=== PATIENT | female | born 1945 | race Caucasian/White ===

== ENCOUNTER 2017-01-06 17:27 | Emergency (ER) | payer OTHER ==
[~2017-01-06] VITALS: Ht 174 cm; Wt 113.7 kg
[~2017-01-06 17:27] MED LIST: ALBUAER INH; ALLO1TAB51 PO; ASPCH81X PO; ATEN50TA8 PO; CMD5 PO; DIGO0.122 PO; ENAL20TA PO; FLUT0.0529 NAE; FRRS300 PO; FRS/40 PO; INSDGI SC; INSU70IN2 SC; ISOS60TA25 PO; LEVO-366 PO; LEVO125T4 PO; LIRA18IN INJ; METF850T PO; MULT-188 PO; MULT-845 PO; OMEG10007 PO; PEDICHW44 PO; POTA1080 PO; PRAV40TA2 PO
[2017-01-06 17:30] VITALS: TEMP 36.8; Ht 174 cm; Wt 113.7 kg
[2017-01-06 17:54] VITALS: O2SAT 98
--- NOTE | 2017-01-06 18:22 | EMERGENCY ROOM VISIT NOTE ---
History First contact with patient: 17:54 Chief Complaint: RESPIRATORY PROBLEMS Stated Complaint: CHF BREATHING TROUBLE Nursing Triage Summary: Patient states "I have CHF. I have been feeling poopy. I have trouble breathing. I call it fluffing." Patient c/o of chest pressure yesterday. History of Present Illness The patient is a 71 year old female who presents to the Emergency Room with complaints of trouble breathing Started 4-5 days ago. Feels that her breathing treatment and inhalers not working. ?compliance with low salt diet. Not following any fluid restriction. Coughing up phlegm, particularly after breathing treatment, more so than previous. Symptomatic only with exertion or sitting up Denies new chest pain, but does have worsening neck pain over last week. Some palpitations, some lightheadedness, No pleurisy. No URTI sx Has longstanding orthopnea, but no PND Had sleep study >10 years ago, and said CPAP wasn't necessary. Also refuses to redo sleep study. Takes Lasix 40mg BID. Unsure of whether or not she is taking enalapril. Walks with poor balance, not compliant with cane. 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 No history of clots or DVTS PCP: Dr. Ibrahim Refractory Specialist Dr. All Steward Review of Systems See HPI for pertinent positives and negatives. A total of ten systems were reviewed and were otherwise negative. Past Medical/Surgical History Medical Problems: (1) A-fib (2) Bronchitis (3) CHF (congestive heart failure) (4) Diabetes (5) emphysema (6) Hypertension (7) Pneumonia (8) thyroid problems Surgical Problems: (1) S/P cholecystectomy Family History Diabetes mellitus Heart disease Hypertension Kidney disease Kidney stones Social History Smoking Status: Former Smoker Alcohol Use: none Marital Status: single Housing Status: lives with significant other Occupation Status: retired Current/Historical Medications Scheduled Allopurinol (Zyloprim), 300 MG PO QAM Aspirin (Aspirin 81), 81 MG PO QAM Atenolol (Tenormin), 100 MG PO QAM Atenolol (Tenormin), 50 MG PO HS Digoxin (Digoxin), 0.125 MG PO DAILY AT 1600 Ferrous Sulfate (Ferrous Sulfate), 325 MG PO DAILY Fish Oil ([place]-3), 1,000 MG PO BID Fluticasone Prop/Salmeterol (Advair Diskus 100/50 60 Dose), 1 PUFF INH BID Fluticasone Propionate (Nasal) (Flonase Allergy Relief), 2 SPRAYS MALATHI DAILY Furosemide (Lasix), 40 MG PO BID AT 0600 & 1200 Insulin Glargine (Lantus), 40 UNITS SC AMPM Ipratropium-Albuterol (Duoneb), 1 TREATMENT INH QID Isosorbide Mononitrate Ext Rel (Imdur Ext Rel), 60 MG PO HS Levothyroxine Sodium (Levothyroxine Sodium), 125 MCG PO HS Liraglutide (Victoza), 1.2 UNITS INJ DAILY AT 1600 Lisinopril (Zestril), 20 MG PO QAM Metformin Hcl (Glucophage), 850 MG PO TID Multiple Vitamins W/ Minerals (Ocuvite), 1 TAB PO BID Multiple Vitamins W/ Minerals (Centrum Silver Adult 50+), 1 TAB PO DAILY Pediatric Multiple Vitamins W/ (Flintstones Plus Iron), 1 TAB PO DAILY Potassium Citrate (Potassium Citrate), 20 MEQ PO BID Pravastatin Sodium (Pravastatin Sodium), 40 MG PO HS Warfarin Sod (Coumadin), 7.5 MG PO QDD Scheduled PRN Albuterol Sulfate (Proair Respiclick), 2 PUFFS INH QID PRN for RESCUE KIT Azithromycin (Zithromax), 250 MG PO DIRECTED PRN for RESCUE KIT Prednisone (Prednisone), 5 MG PO DIRECTED PRN for RESCUE KIT Physical Exam Vital Signs Date Time Temp Pulse Resp B/P (MAP) Pulse Ox O2 Delivery O2 Flow Rate FiO2 01/06/17 21:28 89 18 152/73 97 01/06/17 20:21 86 20 171/109 99 Room Air 01/06/17 19:19 89 01/06/17 18:59 82 20 156/89 96 Room Air 01/06/17 17:54 98 Room Air 01/06/17 17:30 36.8 85 18 171/78 96 Room Air Physical Exam GENERAL: Alert, well appearing, well nourished, sitting in bed, no acute distress, non-toxic HEAD: NC/AT. No sinus tenderness. OROPHARYNX: no exudate, no erythema, lips, buccal mucosa, and tongue normal and mucous membranes are tacky NECK: Supple, no nuchal rigidity, no adenopathy, non-tender, no JVD LUNGS: Clear to auscultation. Normal chest wall mechanics, good air entry. No crepitations, crackles, or wheezes HEART: S1 and S2 normal, irregularly irregular but rate controlled, no murmurs CHEST: No reproducible tenderness. ABDOMEN: abdomen soft, non-tender, normo-active bowel sounds, no masses, no rebound or guarding. No caput. BACK: Back is symmetrical on inspection, no deformities, no midline tenderness, no CVA tenderness. SKIN: Warm, pink, dry. No erythema, rashes, or bruising. EXTREMITIES: Grossly normal. No pitting edema. Calves non tender. Strength 5/5 bilaterally. NEURO: Alert, Ox3. No focal deficits. Normal sensorium, cranial nerves II-XII grossly intact, normal speech. PSYCH: Mood and affect appropriate. Medical Decision & Procedures ER Provider Diagnostic Interpretation: CHEST ONE VIEW PORTABLE CLINICAL HISTORY: SOB dyspnea COMPARISON STUDY: 10/12/2015 FINDINGS: Moderate stable cardiomegaly. Mild prominence of the pulmonary vasculature considered chronic. Diaphragms are smooth. Costophrenic angles are sharp. IMPRESSION: Moderate stable cardiomegaly. Otherwise negative study Laboratory Results 01/06/17 18:55 Red Blood Count 4.11, Mean Corpuscular Volume 90.5, Mean Corpuscular Hemoglobin 29.0, Mean Corpuscular Hemoglobin Concent 32.0, Mean Platelet Volume 10.5, Neutrophils (%) (Auto) 75.5, Lymphocytes (%) (Auto) 14.6, Monocytes (%) (Auto) 6.6, Eosinophils (%) (Auto) 2.7, Basophils (%) (Auto) 0.3, Neutrophils # (Auto) 5.86, Lymphocytes # (Auto) 1.13, Monocytes # (Auto) 0.51, Eosinophils # (Auto) 0.21, Basophils # (Auto) 0.02 01/06/17 18:55 Test 01/06/17 18:55 White Blood Count 7.75 K/uL (4.8-10.8) Red Blood Count 4.11 M/uL (4.2-5.4) Hemoglobin 11.9 g/dL (12.0-16.0) Hematocrit 37.2 % (37-47) Mean Corpuscular Volume 90.5 fL (80-100) Mean Corpuscular Hemoglobin 29.0 pg (25-34) Mean Corpuscular Hemoglobin Concent 32.0 g/dl (32-36) Platelet Count 129 K/uL (130-400) Mean Platelet Volume 10.5 fL (7.4-10.4) Neutrophils (%) (Auto) 75.5 % Lymphocytes (%) (Auto) 14.6 % Monocytes (%) (Auto) 6.6 % Eosinophils (%) (Auto) 2.7 % Basophils (%) (Auto) 0.3 % Neutrophils # (Auto) 5.86 K/uL (1.4-6.5) Lymphocytes # (Auto) 1.13 K/uL (1.2-3.4) Monocytes # (Auto) 0.51 K/uL (0.11-0.59) Eosinophils # (Auto) 0.21 K/uL (0-0.5) Basophils # (Auto) 0.02 K/uL (0-0.2) RDW Standard Deviation 56.2 fL (36.4-46.3) RDW Coefficient of Variation 17.1 % (11.5-14.5) Immature Granulocyte % (Auto) 0.3 % Immature Granulocyte # (Auto) 0.02 K/uL (0.00-0.02) Prothrombin Time 21.4 SECONDS (9.0-12.0) Prothromb Time International Ratio 1.9 (0.9-1.1) Anion Gap 7.0 mmol/L (3-11) Est Creatinine Clear Calc Drug Dose 64.4 ml/min Estimated GFR () 59.3 Estimated GFR (Non- 51.2 BUN/Creatinine Ratio 29.3 (10-20) Calcium Level 9.6 mg/dl (8.5-10.1) Troponin I < 0.015 ng/ml (0-0.045) Medications Administered Medications (Trade) Dose Ordered Sig/Ting Route Start Time Stop Time Status Last Admin Dose Admin Sodium Chloride 500 ml @ 500 mls/hr Q1H IV 01/06/17 20:00 01/06/17 20:59 DC 01/06/17 20:21 500 MLS/HR Albuterol/ Ipratropium (Duoneb) 3 ml Q4R STAT INH 01/06/17 20:01 01/06/17 20:06 DC 01/06/17 20:20 3 ML ECG Indication: SOB/dyspnea Rate (beats per minute): 94 Rhythm: atrial fibrillation Findings: PVC, Q waves (Anterior) Comparison ECG Date: When compared with ECG of 12-OCT-2015 09:42, nonspecific T wave abnormality no longer evident in Lateral leads Medical Decision Prior records/ancillary studies reviewed. Triage Nursing notes reviewed. Additional history obtained from the patient and . The patient's history was concerning for respiratory difficulties. Differential diagnosis: Etiologies such as infections, reactive airway disease, pneumonia, pneumothorax , COPD, CHF, cardiac ischemia, pulmonary embolism, musculoskeletal, gastrointestinal, as well as others were entertained. Physical examination: As above. ER treatment provided: IV NSS bolus + Duonebs On reassessment the patient felt better. Diagnostic interpretation by me: The electrocardiogram was negative for acute ischemic or pathologic change. The labs revealed borderline anemia, negative trop, evidence of dehydration Imaging studies: Chest x-ray as above. By the evaluation outlined above emergent etiologies such as CHF, cardiac ischemia, pulmonary embolism, reactive airway disease, pneumonia, pneumothorax, musculoskeletal, serious bacterial infections, as well as others were deemed relatively unlikely. The patient and informed about the findings as listed above. All questions were answered and they were pleased with the treatment. Return instructions were outlined and the patient was discharged in stable condition. Outpatient prescription management: Nil Referral: The patient was referred back to their primary care physician for follow-up in 2 to 3 days for a recheck of the current condition. Impression Primary Impression: SOB (shortness of breath) Departure Information Dispostion Home / Self-Care Condition GOOD Referrals Consuelo Arreguin D.O. (PCP) Patient Instructions My [facility] Resident Tracking Resident Involvement: Resident Care Provided Care Provided: Adult ED
--- NOTE | 2017-01-06 19:01 | DIAGNOSTIC IMAGING REPORT ---
CHEST ONE VIEW PORTABLE CLINICAL HISTORY: SOB dyspnea COMPARISON STUDY: 10/12/2015 FINDINGS: Moderate stable cardiomegaly. Mild prominence of the pulmonary vasculature considered chronic. Diaphragms are smooth. Costophrenic angles are sharp. IMPRESSION: Moderate stable cardiomegaly. Otherwise negative study The above report was generated using voice recognition software. It may contain grammatical, syntax or spelling errors. Electronically signed by: Bartolome Villanueva M.D. 01/06/2017 7:00 PM Dictated Date/Time: 01/06/2017 7:00 PM
[2017-01-06 19:08] LABS: BASO % 0.3 %; BASO ABS # 0.02 K/uL (0-0.2); COMPLETE YES; EOS % 2.7 %; HEMATOCRIT 37.2 % (37-47); IG% 0.3 %; LYMPH % 14.6 %; LYMPH ABS # 1.13 K/uL (1.2-3.4); MEAN CELL VOLUME 90.5 fL (80-100); MEAN PLATELET VOLUME 10.5 fL (7.4-10.4); MONO % 6.6 %; NEUT % 75.5 %; PLATELET COUNT 129 K/uL (130-400); RED BLOOD COUNT 4.11 M/uL (4.2-5.4); WHITE BLOOD COUNT 7.75 K/uL (4.8-10.8)
[2017-01-06 19:18] LABS: INR 1.9 (0.9-1.1); PROTHROMBIN TIME (PATIENT) 21.4 SECONDS (9.0-12.0)
[2017-01-06] MEDS ORDERED: ALBU18002 INH (19:18)
[2017-01-06] MEDS ORDERED: FLUT0.15 NAE (19:18)
[2017-01-06] MEDS ORDERED: ASPI-435 PO (19:18)
[2017-01-06] MEDS ORDERED: LISI-725 PO (19:18)
[2017-01-06] MEDS ORDERED: LNX125 PO (19:18)
[2017-01-06] MEDS ORDERED: ADVIN10/60 INH (19:18)
[2017-01-06] MEDS ORDERED: URC10 PO (19:18)
[2017-01-06] MEDS ORDERED: PRAV40TA2 PO (19:18)
[2017-01-06] MEDS ORDERED: PRED-301 PO (19:18)
[2017-01-06] MEDS ORDERED: AZIT250T PO (19:18)
[2017-01-06] MEDS ORDERED: INSDGI SC (19:18)
[2017-01-06] MEDS ORDERED: IPRASOL4 INH (19:18)
[2017-01-06] MEDS ORDERED: ALLO300T2 PO (19:18)
[2017-01-06 19:30] LABS: BLOOD UREA NITROGEN 32 mg/dl (7-18); BUN/CREATININE RATIO 29.3 (10-20); CALCIUM 9.6 mg/dl (8.5-10.1); CARBON DIOXIDE 26 mmol/L (21-32); CHLORIDE 107 mmol/L (98-107); GLUCOSE 185 mg/dl (70-99); POTASSIUM 4.8 mmol/L (3.5-5.1); SODIUM 140 mmol/L (136-145)
[2017-01-06] MEDS ORDERED: SODIUM CHLORIDE 0.9% 500ML 500 ML IV SCH (20:00)
[2017-01-06] MEDS ORDERED: ALBUT/IPRATROP 3MG/0.5MG NEB 3 ML VIAL INH STA (20:01)
--- NOTE | 2017-01-06 21:14 | EMERGENCY ROOM VISIT NOTE ---
ED Visit Note First contact with patient: 17:54 Resident Physician Supervision Note: I interviewed and examined the patient. Discussed with Dr. Jackson and agree with findings and plan as documented in the note. Documented By: Santos Kingston Problem List Medical Problems: (1) A-fib Status: Chronic (2) Bronchitis Status: Resolved (3) CHF (congestive heart failure) Status: Chronic (4) Diabetes Status: Chronic (5) emphysema Status: Resolved (6) Hypertension Status: Chronic (7) Pneumonia Status: Resolved (8) thyroid problems Status: Chronic Surgical Problems: (1) S/P cholecystectomy Status: Resolved Current/Historical Medications Scheduled Allopurinol (Zyloprim), 300 MG PO QAM Aspirin (Aspirin 81), 81 MG PO QAM Atenolol (Tenormin), 100 MG PO QAM Atenolol (Tenormin), 50 MG PO HS Digoxin (Digoxin), 0.125 MG PO DAILY AT 1600 Ferrous Sulfate (Ferrous Sulfate), 325 MG PO DAILY Fish Oil ([place]-3), 1,000 MG PO BID Fluticasone Prop/Salmeterol (Advair Diskus 100/50 60 Dose), 1 PUFF INH BID Fluticasone Propionate (Nasal) (Flonase Allergy Relief), 2 SPRAYS MALATHI DAILY Furosemide (Lasix), 40 MG PO BID AT 0600 & 1200 Insulin Glargine (Lantus), 40 UNITS SC AMPM Ipratropium-Albuterol (Duoneb), 1 TREATMENT INH QID Isosorbide Mononitrate Ext Rel (Imdur Ext Rel), 60 MG PO HS Levothyroxine Sodium (Levothyroxine Sodium), 125 MCG PO HS Liraglutide (Victoza), 1.2 UNITS INJ DAILY AT 1600 Lisinopril (Zestril), 20 MG PO QAM Metformin Hcl (Glucophage), 850 MG PO TID Multiple Vitamins W/ Minerals (Ocuvite), 1 TAB PO BID Multiple Vitamins W/ Minerals (Centrum Silver Adult 50+), 1 TAB PO DAILY Pediatric Multiple Vitamins W/ (Flintstones Plus Iron), 1 TAB PO DAILY Potassium Citrate (Potassium Citrate), 20 MEQ PO BID Pravastatin Sodium (Pravastatin Sodium), 40 MG PO HS Warfarin Sod (Coumadin), 7.5 MG PO QDD Scheduled PRN Albuterol Sulfate (Proair Respiclick), 2 PUFFS INH QID PRN for RESCUE KIT Azithromycin (Zithromax), 250 MG PO DIRECTED PRN for RESCUE KIT Prednisone (Prednisone), 5 MG PO DIRECTED PRN for RESCUE KIT Allergies Coded Allergies: Adhesives (Verified Allergy, Mild, REDNESS, 01/06/17) Vital Signs Date Time Temp Pulse Resp B/P (MAP) Pulse Ox O2 Delivery O2 Flow Rate FiO2 01/06/17 20:21 86 20 171/109 99 Room Air 01/06/17 19:19 89 01/06/17 18:59 82 20 156/89 96 Room Air 01/06/17 17:54 98 Room Air 01/06/17 17:30 36.8 85 18 171/78 96 Room Air Laboratory Results 01/06/17 18:55 Red Blood Count 4.11, Mean Corpuscular Volume 90.5, Mean Corpuscular Hemoglobin 29.0, Mean Corpuscular Hemoglobin Concent 32.0, Mean Platelet Volume 10.5, Neutrophils (%) (Auto) 75.5, Lymphocytes (%) (Auto) 14.6, Monocytes (%) (Auto) 6.6, Eosinophils (%) (Auto) 2.7, Basophils (%) (Auto) 0.3, Neutrophils # (Auto) 5.86, Lymphocytes # (Auto) 1.13, Monocytes # (Auto) 0.51, Eosinophils # (Auto) 0.21, Basophils # (Auto) 0.02 01/06/17 18:55 Test 01/06/17 18:55 White Blood Count 7.75 K/uL (4.8-10.8) Red Blood Count 4.11 M/uL (4.2-5.4) Hemoglobin 11.9 g/dL (12.0-16.0) Hematocrit 37.2 % (37-47) Mean Corpuscular Volume 90.5 fL (80-100) Mean Corpuscular Hemoglobin 29.0 pg (25-34) Mean Corpuscular Hemoglobin Concent 32.0 g/dl (32-36) Platelet Count 129 K/uL (130-400) Mean Platelet Volume 10.5 fL (7.4-10.4) Neutrophils (%) (Auto) 75.5 % Lymphocytes (%) (Auto) 14.6 % Monocytes (%) (Auto) 6.6 % Eosinophils (%) (Auto) 2.7 % Basophils (%) (Auto) 0.3 % Neutrophils # (Auto) 5.86 K/uL (1.4-6.5) Lymphocytes # (Auto) 1.13 K/uL (1.2-3.4) Monocytes # (Auto) 0.51 K/uL (0.11-0.59) Eosinophils # (Auto) 0.21 K/uL (0-0.5) Basophils # (Auto) 0.02 K/uL (0-0.2) RDW Standard Deviation 56.2 fL (36.4-46.3) RDW Coefficient of Variation 17.1 % (11.5-14.5) Immature Granulocyte % (Auto) 0.3 % Immature Granulocyte # (Auto) 0.02 K/uL (0.00-0.02) Prothrombin Time 21.4 SECONDS (9.0-12.0) Prothromb Time International Ratio 1.9 (0.9-1.1) Anion Gap 7.0 mmol/L (3-11) Est Creatinine Clear Calc Drug Dose 64.4 ml/min Estimated GFR () 59.3 Estimated GFR (Non- 51.2 BUN/Creatinine Ratio 29.3 (10-20) Calcium Level 9.6 mg/dl (8.5-10.1) Troponin I < 0.015 ng/ml (0-0.045) Medications Administered Medications (Trade) Dose Ordered Sig/Ting Route Start Time Stop Time Status Last Admin Dose Admin Sodium Chloride 500 ml @ 500 mls/hr Q1H IV 01/06/17 20:00 01/06/17 20:59 DC 01/06/17 20:21 500 MLS/HR Albuterol/ Ipratropium (Duoneb) 3 ml Q4R STAT INH 01/06/17 20:01 01/06/17 20:06 DC 01/06/17 20:20 3 ML Departure Information Dispostion Home / Self-Care Condition GOOD Referrals Consuelo Arreguin D.O. (PCP) Patient Instructions My [facility]
[2017-01-06 21:28] VITALS: BP 152/73; PULSE 89; O2SAT 97
== END 2017-01-06 21:28 | disposition home or self-care (01) ==
LOC: C.EDB 17:29
DX: R06.02 Shortness of breath (principal); I48.91 Unspecified atrial fibrillation; I50.9 Heart failure, unspecified; E11.9 Type 2 diabetes mellitus without complications; I10 Essential (primary) hypertension; Z83.3 Family history of diabetes mellitus; Z82.49 Family history of ischemic heart disease and other diseases of the circulatory system; Z87.891 Personal history of nicotine dependence; Z79.82 Long term (current) use of aspirin; Z79.4 Long term (current) use of insulin; Z79.01 Long term (current) use of anticoagulants

== ENCOUNTER 2018-09-08 17:47 | Inpatient (IN) ==
[2018-09-08] MEDS ORDERED: SODIUM CHLORIDE 0.9% 500 ML IV SCH (18:15)
--- NOTE | 2018-09-08 18:35 | XRay Report ---
XR chest 1V portable CLINICAL HISTORY: Pain, radiating to the abdomen. COMPARISON STUDY: May 02, 2018 FINDINGS: The cardiac silhouette is enlarged. There has been interval resolution of the previously id entified pulmonary vascular congestion. There is no focal pulmonary consolidation. There is no free i ntraperitoneal air.[There are no significant pleural effusions. IMPRESSION: 1. Enlarged cardiac silhouette with near complete resolution of the previously described pulmonary va scular congestion. 2. No evidence of focal pulmonary consolidation 3. No evidence of free intraperitoneal air Electronically signed by: Liborio Fernandez M.D. 09/08/2018 6:34 PM
[2018-09-08 18:55] LABS: Basophils # (auto) 0.03 K/uL (0-0.2); Basophils % (auto) 0.2 %; Eosinophils # (auto) 0.18 K/uL (0-0.5); Eosinophils % (auto) 1.4 %; Hematocrit (blood only) 31.4 % (37-47); Hemoglobin 9.9 g/dL (12.0-16.0); Immature Granulocytes # (auto) 0.03 K/uL (0.00-0.02); Immature Granulocytes % (auto) 0.2 %; Lymphocytes # (auto) 1.49 K/uL (1.2-3.4); Lymphocytes % (auto) 11.5 %; Mean Corpuscular Hgb Conc 31.5 g/dL (32-36); Mean Corpuscular Volume 88.2 fL (80-100); Monocytes # (auto) 0.81 K/uL (0.11-0.59); Monocytes % (auto) 6.2 %; Neutrophils # (auto) 10.47 K/uL (1.4-6.5); Neutrophils % (auto) 80.5 %; Platelet Count 278 K/uL (130-400); RDW Coefficient of Variation 18.1 % (11.5-14.5); RDW Standard Deviation 58.3 fL (36.4-46.3); Red Blood Count 3.56 M/uL (4.2-5.4); White Blood Count 13.01 K/uL (4.8-10.8)
--- NOTE | 2018-09-08 18:55 | Emergency Department Note ---
Entered by Immanuel Greenberg acting as a scribe for History of Present Illness General Chief complaint: Constipation Stated complaint: CONSTIPATION, ABDOMINAL PAIN Time Seen by Provider: 09/08/18 18:02 Source: patient Limitations: no limitations History of Present Illness Onset (ago): week(s) (couple of weeks) Location: abdomen Pain Consistency: + intermittent Maximum Pain Intensity: 2 Quality: + aching Associated symptoms: + denies other symptoms (back pain, burning with urination), + loss of appetite and + shortness of breath; no headaches, no n ausea/vomiting and no weakness (in legs) The patient is a 73 year old female who presents to the Emergency Room with complaints of intermittent constipation starting a couple of weeks ago. The patient states her last bowel movement was 5 days ago after she took milk of magnesium. She notes she has been having aching pain at her RUQ. The patient states she has lost over 14 pounds in the past couple weeks. She notes she has been losing her appetite. The patient notes she took a breathing treatment before coming to the ED because she states she had bad breathing because of the pain. The patient notes she had a temperature of 99.1 before coming to the ED. She notes her last bowel movement was dark. The patient states she took insulin this morning. The patient denies vomiting, back pain, burning with urination, headaches, numbness or weakness in her legs, and any recent change in medications. The patient notes she had the flu 4 times this winter. She notes she has CHF and A-Fib. The patient notes she takes Coumadin and her blood sugar has been good. She notes her PCP is Consuelo Arreguin. Home Medications Home Medications Medication Instructions Recorded Confirmed Type albuterol sulfate [ProAir 2 puff INHALATION QID PRN 03/18/18 09/08/18 History RespiClick] allopurinol 300 mg PO DAILY 03/18/18 09/08/18 History atenolol 100 mg PO QAM 03/18/18 09/08/18 History digoxin [Digox] 0.125 mg PO DAILY 03/18/18 09/08/18 History fluticasone propion-salmeterol 1 puff INHALATION Q12H 03/18/18 09/08/18 History [Advair Diskus] fluticasone propionate [Flonase 2 spray INTRANASAL DAILY 03/18/18 09/08/18 History Allergy Relief] furosemide 40 mg PO BID 03/18/18 09/08/18 History insulin glargine [Lantus U-100 40 unit SUBCUT BID 03/18/18 09/08/18 History Insulin] isosorbide mononitrate 60 mg PO QAM 03/18/18 09/08/18 History levothyroxine 125 mcg PO DAILY 03/18/18 09/08/18 History liraglutide [Victoza 2-Trevor] 1.2 mg SUBCUT DAILY 03/18/18 09/08/18 History lisinopril 20 mg PO DAILY 03/18/18 09/08/18 History metformin 850 mg PO TID 03/18/18 09/08/18 History montelukast 10 mg PO PM 03/18/18 09/08/18 History potassium citrate 20 meq PO BID 03/18/18 09/08/18 History pravastatin 40 mg PO HS 03/18/18 09/08/18 History warfarin 7.5 mg PO DAILY 03/18/18 09/08/18 History atenolol 50 mg PO QPM 05/02/18 09/08/18 History insulin lispro protamin-lispro 18 unit SUBCUT QAM 05/02/18 09/08/18 History [Humalog Mix 75-25 KwikPen] ipratropium-albuterol 3 ml INHALATION QID PRN 05/02/18 09/08/18 History azithromycin [Zithromax Z-Trevor] 1 - 2 tabs PO UD 09/08/18 09/08/18 History ferrous sulfate 325 mg PO QPM 09/08/18 09/08/18 History magnesium hydroxide [Milk of 30 ml PO UD PRN 09/08/18 09/08/18 History Magnesia] hngxyjez-lnc-FP-lycopen-lutein 1 tab PO DAILY 09/08/18 09/08/18 History [Centrum Silver] omega 8-xbt-jla-fish oil [[place]-3] 1 cap PO BID 09/08/18 09/08/18 History pedi multivitamin no.79-iron 1 tab PO QPM 09/08/18 09/08/18 History [Flintstones with Iron] prednisone 10 mg PO UD PRN 09/08/18 09/08/18 History triamcinolone acetonide 1 applic TOPICAL BID PRN 09/08/18 09/08/18 History Allergies Allergy/AdvReac Type Severity Reaction Status Date / Time adhesive Allergy Mild REDNESS Verified 05/02/18 06:43 cephalexin [From Keflex] Allergy Mild Unknown Verified 05/02/18 06:43 Past Med/Surg History Medical History Atrial fibrillation CHF (congestive heart failure) Diabetes Hypertension Pneumonia Surgical History History of cholecystectomy Social History Preferred Language: Lebanese Communication Ability: Effective Head Irrigator Required: No Beliefs That Will Affect Care: None marital status: Current Living Situation: Spouse current occupational status: retired Other Information That Helps Us Care for You: No Feels Safe at Home: Yes Safety Concerns: Feels Safe At This Time Smoking Status: Unknown if ever smoked Hx Alcohol Use: No Hx Substance Use: No Review of Systems See HPI for pertinent positives & negatives. and A total of 10 systems reviewed and were otherwise negative Physical Exam Vital Signs Vital Signs - 24 hr 09/08/18 17:55 09/08/18 18:13 09/08/18 18:55 Temperature 37.2 C Temperature Source Oral Sepsis Recent Fever Within 48 Hours No Sepsis New/Unexplained Change in Mental Status No Sepsis Action Taken by Nursing No Action Required Pulse Rate 80 82 Pulse Rate [Left Apical] 81 Pulse Rate from SpO2 Sensor 89 Pulse Rhythm [Left Apical] Regular Pulse Strength [Left Apical] Normal Respiratory Rate 18 21 27 H Respiratory Effort / Characteristics Non-Labored Spontaneous Accessory Muscle Use Respiratory Depth Normal Respiratory Pattern Regular Blood Pressure 159/69 H 176/74 H Blood Pressure [Left Arm] 158/89 H Blood Pressure Mean 99 108 Blood Pressure Mean [Left Arm] 112 Blood Pressure Position Sitting Blood Pressure Position [Left Arm] Lying Pulse Oximetry 97 96 97 Oxygen Delivery Method Room Air Room Air 09/08/18 19:03 09/08/18 19:15 09/08/18 19:30 Temperature Temperature Source Sepsis Recent Fever Within 48 Hours Sepsis New/Unexplained Change in Mental Status Sepsis Action Taken by Nursing Pulse Rate 83 93 H 86 Pulse Rate [Left Apical] Pulse Rate from SpO2 Sensor 80 86 86 Pulse Rhythm [Left Apical] Pulse Strength [Left Apical] Respiratory Rate 29 H 27 H 24 Respiratory Effort / Characteristics Respiratory Depth Respiratory Pattern Blood Pressure Blood Pressure [Left Arm] Blood Pressure Mean Blood Pressure Mean [Left Arm] Blood Pressure Position Blood Pressure Position [Left Arm] Pulse Oximetry 95 94 94 Oxygen Delivery Method 09/08/18 19:45 09/08/18 20:19 09/08/18 20:30 Temperature Temperature Source Sepsis Recent Fever Within 48 Hours Sepsis New/Unexplained Change in Mental Status Sepsis Action Taken by Nursing Pulse Rate 86 88 91 H Pulse Rate [Left Apical] Pulse Rate from SpO2 Sensor 86 102 H 97 H Pulse Rhythm [Left Apical] Pulse Strength [Left Apical] Respiratory Rate 26 H 15 20 Respiratory Effort / Characteristics Respiratory Depth Respiratory Pattern Blood Pressure 158/89 H Blood Pressure [Left Arm] Blood Pressure Mean 112 Blood Pressure Mean [Left Arm] Blood Pressure Position Blood Pressure Position [Left Arm] Pulse Oximetry 96 97 96 Oxygen Delivery Method 09/08/18 21:13 09/08/18 21:15 09/08/18 21:30 Temperature Temperature Source Sepsis Recent Fever Within 48 Hours Sepsis New/Unexplained Change in Mental Status Sepsis Action Taken by Nursing Pulse Rate 91 H 95 H 99 H Pulse Rate [Left Apical] Pulse Rate from SpO2 Sensor 95 H 89 Pulse Rhythm [Left Apical] Pulse Strength [Left Apical] Respiratory Rate 17 21 21 Respiratory Effort / Characteristics Respiratory Depth Respiratory Pattern Blood Pressure 164/90 H Blood Pressure [Left Arm] Blood Pressure Mean 114 Blood Pressure Mean [Left Arm] Blood Pressure Position Blood Pressure Position [Left Arm] Pulse Oximetry 95 94 Oxygen Delivery Method 09/08/18 21:32 09/08/18 21:45 09/08/18 22:00 Temperature Temperature Source Sepsis Recent Fever Within 48 Hours Sepsis New/Unexplained Change in Mental Status Sepsis Action Taken by Nursing Pulse Rate 92 H 100 H 82 Pulse Rate [Left Apical] Pulse Rate from SpO2 Sensor 82 Pulse Rhythm [Left Apical] Pulse Strength [Left Apical] Respiratory Rate 20 20 22 Respiratory Effort / Characteristics Respiratory Depth Respiratory Pattern Blood Pressure 177/104 H Blood Pressure [Left Arm] Blood Pressure Mean 128 Blood Pressure Mean [Left Arm] Blood Pressure Position Blood Pressure Position [Left Arm] Pulse Oximetry 94 Oxygen Delivery Method 09/08/18 22:07 09/08/18 22:15 09/08/18 22:25 Temperature Temperature Source Sepsis Recent Fever Within 48 Hours Sepsis New/Unexplained Change in Mental Status Sepsis Action Taken by Nursing Pulse Rate 88 82 86 Pulse Rate [Left Apical] Pulse Rate from SpO2 Sensor 93 H 80 91 H Pulse Rhythm [Left Apical] Pulse Strength [Left Apical] Respiratory Rate 21 21 20 Respiratory Effort / Characteristics Respiratory Depth Respiratory Pattern Blood Pressure 146/105 H 150/110 H Blood Pressure [Left Arm] Blood Pressure Mean 118 123 Blood Pressure Mean [Left Arm] Blood Pressure Position Blood Pressure Position [Left Arm] Pulse Oximetry 97 95 98 Oxygen Delivery Method 09/08/18 22:30 09/08/18 22:31 09/08/18 22:45 Temperature Temperature Source Sepsis Recent Fever Within 48 Hours Sepsis New/Unexplained Change in Mental Status Sepsis Action Taken by Nursing Pulse Rate 82 82 81 Pulse Rate [Left Apical] Pulse Rate from SpO2 Sensor 86 79 79 Pulse Rhythm [Left Apical] Pulse Strength [Left Apical] Respiratory Rate 18 23 12 Respiratory Effort / Characteristics Respiratory Depth Respiratory Pattern Blood Pressure 140/78 Blood Pressure [Left Arm] Blood Pressure Mean 98 Blood Pressure Mean [Left Arm] Blood Pressure Position Blood Pressure Position [Left Arm] Pulse Oximetry 95 93 96 Oxygen Delivery Method 09/08/18 22:59 09/09/18 00:06 09/09/18 00:45 Temperature 36.8 C Temperature Source Oral Sepsis Recent Fever Within 48 Hours Sepsis New/Unexplained Change in Mental Status Sepsis Action Taken by Nursing Pulse Rate Pulse Rate [Left Apical] 84 89 Pulse Rate from SpO2 Sensor Pulse Rhythm [Left Apical] Regular Pulse Strength [Left Apical] Normal Respiratory Rate 16 18 Respiratory Effort / Characteristics Non-Labored Spontaneous Non-Labored Spontaneous Respiratory Depth Normal Respiratory Pattern Regular Blood Pressure Blood Pressure [Left Arm] 146/74 H Blood Pressure Mean Blood Pressure Mean [Left Arm] 98 Blood Pressure Position Blood Pressure Position [Left Arm] Lying Pulse Oximetry 97 97 Oxygen Delivery Method Room Air Room Air Room Air General: Non-ill appearing older female in no acute distress. HEENT: Normal cephalic atraumatic. Pupils are equal round and reactive to ligh t. Extraocular movements are intact. Oropharynx is pink with moist mucous membranes. No swelling of the mouth lips or tongue. Neck: Supple with a midline trachea. No meningeal signs or stiffness, no JVD or bruits. No Stridor. Chest: Clear to auscultation bilaterally. No wheezes or rhonchi. No increased work of breathing. Heart: regular rate and rhythm. Abdomen: Soft, nondistended without rebound guarding or rigidity. Mildly tender to palpation in RUQ. No peritonitis. Extremities: No cyanosis clubbing or edema. No calf tenderness or assymetry Spine/Back. Non tender to palpation. No CVA tenderness Skin: Good turgor without rashes. Neurologic exam: Cranial nerves two through 12 are intact. Motor and sensation are intact and symmetrical throughout. Course 1802: The patient was evaluated in room B7, and a complete history and physical examination were performed. 1919: I reevaluated the patient. The patient is going to the CAT scan and doing okay. 2035: I reviewed the patient's case with Dr. Todd Self [facility] Hospitalist. He will evaluate the patient for further management. Administered Medications Atenolol (Tenormin) 50 mg PO QPM ANTIONETTE Stop: 10/08/18 23:46 Last Admin: 09/09/18 00:17 Dose: 50 mg Documented by: [id number] Sodium Chloride (Nss 1000ml) 1,000 mls @ 60 mls/hr IV .[id number] ONE Stop: 09/09/18 16:24 Last Admin: 09/09/18 00:15 Dose: 60 mls/hr Documented by: [id number] Insulin Aspart (Novolog Flexpen) 0 units SC ACHS ANTIONETTE Stop: 10/08/18 23:44 Last Admin: 09/09/18 00:15 Dose: Not Given Documented by: [id number] Cosigned by: [id number] Ipratropium [place] (Atrovent 0.02% 0.5mg/2.5ml) 0.5 mg INH Q4H PRN PRN Reason: sob Stop: 10/08/18 22:14 Last Admin: 09/09/18 00:03 Dose: 0.5 mg Documented by: [id number] Levalbuterol HCl (Xopenex 1.25mg/0.5ml Neb) 1.25 mg INH Q4H PRN PRN Reason: sob Stop: 10/08/18 22:14 Last Admin: 09/09/18 00:03 Dose: 1.25 mg Documented by: [id number] Montelukast Sodium (Singulair) 10 mg PO PM ANTIONETTE Stop: 10/08/18 23:46 Last Admin: 09/09/18 00:19 Dose: Not Given Documented by: [id number] Fluticasone/Salmeterol (Advair Diskus 100/50) 1 puffs INH BID ANTIONETTE Stop: 10/08/18 23:46 Last Admin: 09/09/18 00:16 Dose: 1 puffs Documented by: [id number] Senna/Docusate Sodium (Senokot S) 1 tab PO BID ANTIONETTE Stop: 10/08/18 23:44 Last Admin: 09/09/18 00:16 Dose: 1 tab Documented by: [id number] Discontinued Medications Sodium Chloride (Nss) 500 mls @ 999 mls/hr IV .Q31M ANTIONETTE Stop: 09/08/18 18:45 Last Infusion: 09/08/18 20:30 Dose: 0 mls/hr Documented by: [id number] Admin: 09/08/18 19:26 Dose: 999 mls/hr Documented by: [id number] Piperacillin Sod/Tazobactam Sod (Zosyn) 4.5 gm in 120 mls @ 240 mls/hr IV NOW STA Stop: 09/08/18 21:08 Last Infusion: 09/08/18 22:10 Dose: 0 mls/hr Documented by: [id number] Admin: 09/08/18 21:40 Dose: 240 mls/hr Documented by: [id number] Ioversol (Optiray 320 100ml) 93 ml IV ONCE PRN PRN Reason: Interaction Checking Stop: 09/12/18 20:02 Last Admin: 09/08/18 20:03 Dose: 93 ml Documented by: [id number] Ipratropium [place] (Atrovent 0.02% 0.5mg/2.5ml) 0.5 mg INH ONE STA Stop: 09/08/18 22:13 Last Admin: 09/09/18 00:03 Dose: Not Given Documented by: [id number] Levalbuterol HCl (Xopenex 1.25mg/0.5ml Neb) 1.25 mg INH ONE STA Stop: 09/08/18 22:12 Last Admin: 09/09/18 00:03 Dose: Not Given Documented by: [id number] Polyethylene Glycol (Miralax Powder Packet) 17 gm PO NOW STA Stop: 09/08/18 22:04 Last Admin: 09/09/18 00:29 Dose: 17 gm Documented by: [id number] Medical Decision Making Differential Diagnosis Differential Diagnosis: Constipation, bowel obstruction, malignancy, cardiac disease, and electrolyte or metabolic abnormality. Medical Records Attestation: I reviewed the patient's medical records. Home Medications Current Medication List: was personally reviewed by me Laboratory Data Attestation: I reviewed the patient's lab results. Result diagrams: 09/08/18 18:41 09/08/18 18:41 Lab Results 09/08/18 09/08/18 09/08/18 Range/Units 18:41 18:41 18:41 WBC 13.01 H (4.8-10.8) K/uL RBC 3.56 L (4.2-5.4) M/uL Hgb 9.9 L (12.0-16.0) g/dL Hct 31.4 L (37-47) % MCV 88.2 (80-100) fL MCH 27.8 (25-34) pg MCHC 31.5 L (32-36) g/dL RDW Std Deviation 58.3 H (36.4-46.3) fL RDW Coeff of Rusty 18.1 H (11.5-14.5) % Plt Count 278 (130-400) K/uL MPV 10.0 (7.4-10.4) fL Immature Gran % (Auto) 0.2 % Neut % (Auto) 80.5 % Lymph % (Auto) 11.5 % [place] % (Auto) 6.2 % Eos % (Auto) 1.4 % Baso % (Auto) 0.2 % Reticulocyte % (Auto) 2.4 H (0.5-2.0) % Immature Gran # (Auto) 0.03 H (0.00-0.02) K/uL Neut # (Auto) 10.47 H (1.4-6.5) K/uL Lymph # (Auto) 1.49 (1.2-3.4) K/uL [place] # (Auto) 0.81 H (0.11-0.59) K/uL Eos # (Auto) 0.18 (0-0.5) K/uL Baso # (Auto) 0.03 (0-0.2) K/uL Reticulocyte # 0.09 (0.02-0.10) 10^6/uL Absolute Nucleated RBC 0.00 (0-0) K/uL Nucleated RBC % (auto) 0.0 % PT 32.5 H (9.0-12.0) Seconds INR 3.5 H (0.9-1.1) APTT 45.3 H* (21.0-31.0) Seconds PTT Ratio 1.7 Sodium 138 (136-145) mmol/L Potassium 4.3 (3.5-5.1) mmol/L Chloride 105 (98-107) mmol/L Carbon Dioxide 25 (21-32) mmol/L Anion Gap 8.0 (3-11) BUN 32 H (7-18) mg/dl Creatinine 1.05 (0.6-1.2) mg/dl Est Cr Clr Drug Dosing 60.4 ml/min Est GFR ( Amer) 61.9 Est GFR (Non-Af Amer) 53.4 BUN/Creatinine Ratio 30.0 H (10-20) Glucose 124 H (70-99) mg/dl POC Glucose (70-99) Lactate (0.4-2.0) mmol/L Calcium 9.7 (8.5-10.1) mg/dl Magnesium 1.9 (1.8-2.4) mg/dl Total Bilirubin 0.3 (0.2-1) mg/dl AST 17 (15-37) U/L ALT 21 (12-78) U/L Alkaline Phosphatase 103 (45-117) U/L Troponin I < 0.015 (0-0.045) ng/ml Total Protein 7.5 (6.4-8.2) gm/dl Albumin 3.2 L (3.4-5.0) gm/dl Globulin 4.3 H (2.5-4.0) gm/dl Albumin/Globulin Ratio 0.7 L (0.9-2) Lipase 290 (73-393) U/L Procalcitonin (0-0.5) ng/ml TSH 2.940 (0.300-4.500) uIu/ml Urine Color Urine Appearance (Clear) Urine pH (4.5-7.5) Ur Specific [place] (1.000-1.030) Urine Protein (Negative) Urine Glucose (UA) (Negative) Urine Ketones (Negative) Urine Blood (Negative) Urine Nitrite (Negative) Urine Bilirubin (Negative) Urine Urobilinogen (Negative) Ur Leukocyte Esterase (Negative) Urine WBC (Auto) (0-5) /hpf Urine RBC (Auto) (0-4) /hpf U Hyaline Cast (Auto) (0-5) /lpf U Epithel Cells (Auto) (0-5) /lpf Urine Bacteria (Auto) (Negative) Digoxin (0.8-2.0) ng/ml Blood Type Antibody Screen 09/08/18 09/08/18 09/08/18 Range/Units 18:41 18:41 18:41 WBC (4.8-10.8) K/uL RBC (4.2-5.4) M/uL Hgb (12.0-16.0) g/dL Hct (37-47) % MCV (80-100) fL MCH (25-34) pg MCHC (32-36) g/dL RDW Std Deviation (36.4-46.3) fL RDW Coeff of Rusty (11.5-14.5) % Plt Count (130-400) K/uL MPV (7.4-10.4) fL Immature Gran % (Auto) % Neut % (Auto) % Lymph % (Auto) % [place] % (Auto) % Eos % (Auto) % Baso % (Auto) % Reticulocyte % (Auto) (0.5-2.0) % Immature Gran # (Auto) (0.00-0.02) K/uL Neut # (Auto) (1.4-6.5) K/uL Lymph # (Auto) (1.2-3.4) K/uL [place] # (Auto) (0.11-0.59) K/uL Eos # (Auto) (0-0.5) K/uL Baso # (Auto) (0-0.2) K/uL Reticulocyte # (0.02-0.10) 10^6/uL Absolute Nucleated RBC (0-0) K/uL Nucleated RBC % (auto) % PT (9.0-12.0) Seconds INR (0.9-1.1) APTT (21.0-31.0) Seconds PTT Ratio Sodium (136-145) mmol/L Potassium (3.5-5.1) mmol/L Chloride (98-107) mmol/L Carbon Dioxide (21-32) mmol/L Anion Gap (3-11) BUN (7-18) mg/dl Creatinine (0.6-1.2) mg/dl Est Cr Clr Drug Dosing ml/min Est GFR ( Amer) Est GFR (Non-Af Amer) BUN/Creatinine Ratio (10-20) Glucose (70-99) mg/dl POC Glucose (70-99) Lactate 2.1 H* (0.4-2.0) mmol/L Calcium (8.5-10.1) mg/dl Magnesium (1.8-2.4) mg/dl Total Bilirubin (0.2-1) mg/dl AST (15-37) U/L ALT (12-78) U/L Alkaline Phosphatase (45-117) U/L Troponin I (0-0.045) ng/ml Total Protein (6.4-8.2) gm/dl Albumin (3.4-5.0) gm/dl Globulin (2.5-4.0) gm/dl Albumin/Globulin Ratio (0.9-2) Lipase (73-393) U/L Procalcitonin (0-0.5) ng/ml TSH (0.300-4.500) uIu/ml Urine Color Yellow Urine Appearance Cloudy H (Clear) Urine pH 7.5 (4.5-7.5) Ur Specific [place] 1.014 (1.000-1.030) Urine Protein Trace H (Negative) Urine Glucose (UA) Negative (Negative) Urine Ketones Negative (Negative) Urine Blood Trace H (Negative) Urine Nitrite Negative (Negative) Urine Bilirubin Negative (Negative) Urine Urobilinogen Negative (Negative) Ur Leukocyte Esterase 3+ H (Negative) Urine WBC (Auto) >30 H (0-5) /hpf Urine RBC (Auto) 0-4 (0-4) /hpf U Hyaline Cast (Auto) 1-5 (0-5) /lpf U Epithel Cells (Auto) 5-10 H (0-5) /lpf Urine Bacteria (Auto) 2+ H (Negative) Digoxin 0.9 (0.8-2.0) ng/ml Blood Type Antibody Screen 09/08/18 09/08/18 09/08/18 Range/Units 18:42 21:42 21:42 WBC (4.8-10.8) K/uL RBC (4.2-5.4) M/uL Hgb (12.0-16.0) g/dL Hct (37-47) % MCV (80-100) fL MCH (25-34) pg MCHC (32-36) g/dL RDW Std Deviation (36.4-46.3) fL RDW Coeff of Rusty (11.5-14.5) % Plt Count (130-400) K/uL MPV (7.4-10.4) fL Immature Gran % (Auto) % Neut % (Auto) % Lymph % (Auto) % [place] % (Auto) % Eos % (Auto) % Baso % (Auto) % Reticulocyte % (Auto) (0.5-2.0) % Immature Gran # (Auto) (0.00-0.02) K/uL Neut # (Auto) (1.4-6.5) K/uL Lymph # (Auto) (1.2-3.4) K/uL [place] # (Auto) (0.11-0.59) K/uL Eos # (Auto) (0-0.5) K/uL Baso # (Auto) (0-0.2) K/uL Reticulocyte # (0.02-0.10) 10^6/uL Absolute Nucleated RBC (0-0) K/uL Nucleated RBC % (auto) % PT (9.0-12.0) Seconds INR (0.9-1.1) APTT (21.0-31.0) Seconds PTT Ratio Sodium (136-145) mmol/L Potassium (3.5-5.1) mmol/L Chloride (98-107) mmol/L Carbon Dioxide (21-32) mmol/L Anion Gap (3-11) BUN (7-18) mg/dl Creatinine (0.6-1.2) mg/dl Est Cr Clr Drug Dosing ml/min Est GFR ( Amer) Est GFR (Non-Af Amer) BUN/Creatinine Ratio (10-20) Glucose (70-99) mg/dl POC Glucose (70-99) Lactate 1.8 (0.4-2.0) mmol/L Calcium (8.5-10.1) mg/dl Magnesium (1.8-2.4) mg/dl Total Bilirubin (0.2-1) mg/dl AST (15-37) U/L ALT (12-78) U/L Alkaline Phosphatase (45-117) U/L Troponin I (0-0.045) ng/ml Total Protein (6.4-8.2) gm/dl Albumin (3.4-5.0) gm/dl Globulin (2.5-4.0) gm/dl Albumin/Globulin Ratio (0.9-2) Lipase (73-393) U/L Procalcitonin 0.07 (0-0.5) ng/ml TSH (0.300-4.500) uIu/ml Urine Color Urine Appearance (Clear) Urine pH (4.5-7.5) Ur Specific [place] (1.000-1.030) Urine Protein (Negative) Urine Glucose (UA) (Negative) Urine Ketones (Negative) Urine Blood (Negative) Urine Nitrite (Negative) Urine Bilirubin (Negative) Urine Urobilinogen (Negative) Ur Leukocyte Esterase (Negative) Urine WBC (Auto) (0-5) /hpf Urine RBC (Auto) (0-4) /hpf U Hyaline Cast (Auto) (0-5) /lpf U Epithel Cells (Auto) (0-5) /lpf Urine Bacteria (Auto) (Negative) Digoxin (0.8-2.0) ng/ml Blood Type A Negative Antibody Screen NEGATIVE 09/08/18 09/09/18 Range/Units 22:58 00:07 WBC (4.8-10.8) K/uL RBC (4.2-5.4) M/uL Hgb (12.0-16.0) g/dL Hct (37-47) % MCV (80-100) fL MCH (25-34) pg MCHC (32-36) g/dL RDW Std Deviation (36.4-46.3) fL RDW Coeff of Rusty (11.5-14.5) % Plt Count (130-400) K/uL MPV (7.4-10.4) fL Immature Gran % (Auto) % Neut % (Auto) % Lymph % (Auto) % [place] % (Auto) % Eos % (Auto) % Baso % (Auto) % Reticulocyte % (Auto) (0.5-2.0) % Immature Gran # (Auto) (0.00-0.02) K/uL Neut # (Auto) (1.4-6.5) K/uL Lymph # (Auto) (1.2-3.4) K/uL [place] # (Auto) (0.11-0.59) K/uL Eos # (Auto) (0-0.5) K/uL Baso # (Auto) (0-0.2) K/uL Reticulocyte # (0.02-0.10) 10^6/uL Absolute Nucleated RBC (0-0) K/uL Nucleated RBC % (auto) % PT (9.0-12.0) Seconds INR (0.9-1.1) APTT (21.0-31.0) Seconds PTT Ratio Sodium (136-145) mmol/L Potassium (3.5-5.1) mmol/L Chloride (98-107) mmol/L Carbon Dioxide (21-32) mmol/L Anion Gap (3-11) BUN (7-18) mg/dl Creatinine (0.6-1.2) mg/dl Est Cr Clr Drug Dosing ml/min Est GFR ( Amer) Est GFR (Non-Af Amer) BUN/Creatinine Ratio (10-20) Glucose (70-99) mg/dl POC Glucose 155 H 142 H (70-99) Lactate (0.4-2.0) mmol/L Calcium (8.5-10.1) mg/dl Magnesium (1.8-2.4) mg/dl Total Bilirubin (0.2-1) mg/dl AST (15-37) U/L ALT (12-78) U/L Alkaline Phosphatase (45-117) U/L Troponin I (0-0.045) ng/ml Total Protein (6.4-8.2) gm/dl Albumin (3.4-5.0) gm/dl Globulin (2.5-4.0) gm/dl Albumin/Globulin Ratio (0.9-2) Lipase (73-393) U/L Procalcitonin (0-0.5) ng/ml TSH (0.300-4.500) uIu/ml Urine Color Urine Appearance (Clear) Urine pH (4.5-7.5) Ur Specific [place] (1.000-1.030) Urine Protein (Negative) Urine Glucose (UA) (Negative) Urine Ketones (Negative) Urine Blood (Negative) Urine Nitrite (Negative) Urine Bilirubin (Negative) Urine Urobilinogen (Negative) Ur Leukocyte Esterase (Negative) Urine WBC (Auto) (0-5) /hpf Urine RBC (Auto) (0-4) /hpf U Hyaline Cast (Auto) (0-5) /lpf U Epithel Cells (Auto) (0-5) /lpf Urine Bacteria (Auto) (Negative) Digoxin (0.8-2.0) ng/ml Blood Type Antibody Screen Imaging Data Radiologist's Impression: Radiology results as stated below per my review and the radiologist's interpretation: CT abd pelvis IV con only CLINICAL HISTORY: weight loss, constipation COMPARISON STUDY: 02/10/2011 TECHNIQUE: The patient was scanned in a dynamic helical fashion during intravenous administration of 93 cc of Optiray 320 A dose lowering technique was utilized adhering to the principles of ALARA. CT DOSE: 1035.98 mGycm FINDINGS: Lower chest: There are dependent atelectatic changes. The heart is enlarged. There is a tiny hiatal hernia. Liver: The liver is enlarged measuring 23 cm. No focal hepatic masses are visualized. Gallbladder: Surgically absent Spleen: Mildly enlarged measuring 12.9 cm Pancreas: Unremarkable. Adrenal glands: Unremarkable. Kidneys: There are innumerable bilateral renal cysts. There are bilateral no nobstructing renal calculi. Bowel: There are no transition zones indicate bowel obstruction. There is no evidence of acute diverticulitis. There are scattered colonic diverticula present. There is minor appendiceal dilatation, but there are no periappendiceal inflammatory changes to indicate acute appendicitis. This likely represents a normal variation. Peritoneum: There is no intraperitoneal free air or abdominal ascites. Vasculature: There is no evidence for abdominal aortic aneurysm. There are extensive vascular calcifications present. Adenopathy: None. Pelvic viscera: There are multiple calcified uterine fibroids. There is air within the bladder, likely iatrogenic. Skeletal structures: No destructive osseous lesions are seen. IMPRESSION: 1. No evidence of bowel obstruction. No evidence of free air 2. Diverticulosis. No evidence of acute diverticulitis 3. Minimally dilated appendix, but no evidence of acute appendicitis. 4. Innumerable bilateral renal cysts 5. Bilateral nephrolithiasis 6. Mild hepatosplenomegaly 7. Air within the bladder likely iatrogenic 8. Uterine fibroids Electronically signed by: Liborio Fernandez M.D. 09/08/2018 8:16 PM XR chest 1V portable CLINICAL HISTORY: Pain, radiating to the abdomen. COMPARISON STUDY: May 02, 2018 FINDINGS: The cardiac silhouette is enlarged. There has been interval resolution of the previously identified pulmonary vascular congestion. There is no focal pulmonary consolidation. There is no free intraperitoneal air.[There are no significant pleural effusions. IMPRESSION: 1. Enlarged cardiac silhouette with near complete resolution of the previously described pulmonary vascular congestion. 2. No evidence of focal pulmonary consolidation 3. No evidence of free intraperitoneal air Electronically signed by: Liborio Fernandez M.D. 09/08/2018 6:34 PM ECG Data Attestation: I personally reviewed and interpreted this ECG as follows: Indication: weakness Rate (beats per minute): 81 Rhythm: atrial fibrillation Findings: + other (poor r wave progression, low voltage) and + nonspecific-ST abn Comparison ECG Date: from (05/02/18) Change: no significant change Blood Pressure Blood Pressure Findings: Elevated blood pressure Blood Pressure Disposition: further management by hospitalist [facility] Narrative This patient comes in as described above. She was placed in room B7. She has been having constipation and weight loss. She does have a complex medical history with diabetes and A. fib. She looks well on exam. She has no neurologic deficits and nothing to suggest cauda equina syndrome she has no problems with her urine. IV access established and extensive workup was done including CAT scan of her abdomen, EKG, chest x-ray, multiple blood testing. She was reassessed frequently. Her CAT scan does not show any definite etiologies for her symptoms. She has multiple kidney cysts. One concerning finding however is he has some air in her bladder. She did not have any instrumentation here. Her urinalysis does suggest a possible UTI although she has no urinary symptoms. Additionally white count and lactic acid are mildly elevated. She did receive a fluid bolus while she was here and is remained n ormotensive. EKG shows A. fib which is chronic for her. She has no evidence of bowel obstruction. Given her abdominal pain with elevated inflammatory markers and concern for urinary infection or early sepsis I do think she needs to be admitted/observed. she was given IV Zosyn and will be admitted. Impression & Plan Abdominal pain, UTI (urinary tract infection) Discharge Plan Visit Data *Final* Discharge Date/Time: 09/08/18 22:59 Chief Complaint: Constipation Stated Complaint: CONSTIPATION, ABDOMINAL PAIN ED Provider: Miguel Hooks Discharge Problem: Abdominal pain, UTI (urinary tract infection) Patient Disposition: Admitted As Inpatient Discharge Instructions Interventions: ED Discharge Assessment Last Done: 09/08/18 22:59 Discharge Problem: Abdominal pain Qualifiers: Abdominal location: right upper quadrant Qualified Code(s): R10.11 - Right upper quadrant pain UTI (urinary tract infection) Qualifiers: Urinary tract infection type: site unspecified Hematuria presence: with hematuria Qualified Code(s): N39.0 - Urinary tract infection, site not specified The scribe's documentation has been prepared under my direction and personally reviewed by me in its entirety. I confirm that the note above accurately reflects all work, treatment, procedures, and medical decision making performed by me.
[2018-09-08 18:59] LABS: Appearance Urine Cloudy (Clear); Bacteria Urine Automated 2+ (Negative); Bilirubin Urine Negative (Negative); Blood Urine Trace (Negative); Color Urine Yellow; Glucose Urine UA Negative (Negative); Ketones Urine Negative (Negative); Leukocyte Esterase Urine 3+ (Negative); Nitrite Urine Negative (Negative); RBC Urine Automated 0-4 /hpf (0-4); Specific Gravity Urine 1.014 (1.000-1.030); Urobilinogen Urine Negative (Negative); WBC Urine Automated >30 /hpf (0-5); pH Urine 7.5 (4.5-7.5)
[2018-09-08 19:13] LABS: Alanine Aminotransferase 21 U/L (12-78); Albumin Level 3.2 gm/dl (3.4-5.0); Aspartate Aminotransferase 17 U/L (15-37); Blood Urea Nitrogen 32 mg/dl (7-18); Calcium 9.7 mg/dl (8.5-10.1); Carbon Dioxide 25 mmol/L (21-32); Chloride 105 mmol/L (98-107); Creatinine Clr Calc Pharmacy 60.4 ml/min; Est GFR (African American) 61.9; Est GFR (Non-African American) 53.4; Glucose 124 mg/dl (70-99); Potassium 4.3 mmol/L (3.5-5.1); Sodium 138 mmol/L (136-145)
[2018-09-08 19:16] LABS: Albumin Globulin Ratio 0.7 (0.9-2); Alkaline Phosphatase 103 U/L (45-117); Bilirubin,Total 0.3 mg/dl (0.2-1); Globulin 4.3 gm/dl (2.5-4.0); Total Protein 7.5 gm/dl (6.4-8.2)
[2018-09-08 19:19] LABS: INR 3.5 (0.9-1.1); Partial Thromboplastin Ratio 1.7; Prothrombin Time 32.5 Seconds (9.0-12.0)
[2018-09-08 19:29] LABS: Protein Urine Trace (Negative)
[2018-09-08 19:30] LABS: Partial Thromboplastin Time 45.3 Seconds (21.0-31.0)
[2018-09-08] MEDS ORDERED: IOVERSOL 100ml IV PRN (20:03)
--- NOTE | 2018-09-08 20:17 | CT Scan Report ---
CT abd pelvis IV con only CLINICAL HISTORY: weight loss, constipation COMPARISON STUDY: 02/10/2011 TECHNIQUE: The patient was scanned in a dynamic helical fashion during intravenous administration of 93 cc of Optiray 320 A dose lowering technique was utilized adhering to the principles of ALARA. CT DOSE: 1035.98 mGycm FINDINGS: Lower chest: There are dependent atelectatic changes. The heart is enlarged. There is a tiny hiatal h ernia. Liver: The liver is enlarged measuring 23 cm. No focal hepatic masses are visualized. Gallbladder: Surgically absent Spleen: Mildly enlarged measuring 12.9 cm Pancreas: Unremarkable. Adrenal glands: Unremarkable. Kidneys: There are innumerable bilateral renal cysts. There are bilateral nonobstructing renal calcul i. Bowel: There are no transition zones indicate bowel obstruction. There is no evidence of acute divert iculitis. There are scattered colonic diverticula present. There is minor appendiceal dilatation, but there are no periappendiceal inflammatory changes to indicate acute appendicitis. This likely repres ents a normal variation. Peritoneum: There is no intraperitoneal free air or abdominal ascites. Vasculature: There is no evidence for abdominal aortic aneurysm. There are extensive vascular calcifi cations present. Adenopathy: None. Pelvic viscera: There are multiple calcified uterine fibroids. There is air within the bladder, likel y iatrogenic. Skeletal structures: No destructive osseous lesions are seen. IMPRESSION: 1. No evidence of bowel obstruction. No evidence of free air 2. Diverticulosis. No evidence of acute diverticulitis 3. Minimally dilated appendix, but no evidence of acute appendicitis. 4. Innumerable bilateral renal cysts 5. Bilateral nephrolithiasis 6. Mild hepatosplenomegaly 7. Air within the bladder likely iatrogenic 8. Uterine fibroids Electronically signed by: Liborio Fernandez M.D. 09/08/2018 8:16 PM
[2018-09-08] MEDS ORDERED: PIPERACILLIN/TAZOBACTAM 4.5 GM/120 ML BAG IV STA (20:39)
[2018-09-08 21:36] LABS: Magnesium 1.9 mg/dl (1.8-2.4); Troponin I < 0.015 ng/ml (0-0.045)
--- NOTE | 2018-09-08 21:50 | History & Physical Report ---
Date of Service September 08, 2018 Assessment & Plan (1) Abdominal pain: ? Secondary to constipation Asymptomatic pyuria, no sepsis Contaminated specimen A. fib on Coumadin, rate controlled, INR supratherapeutic hypertension, slightly elevated secondary discomfort DM 2 insulin requiring, well controlled as of recent outpatient hemoglobin A1c of 6.9 from November 2017 asthma, past tobacco abuse No overt wheezing noted on clinical exam. Acute on chronic anemia Hemoglobin drop from baseline No overt GI bleed OBS GMF Bowel regimen Hold off on additional antibiotics for now Update anemia workup Basal insulin adjusted for liquid diet until patient appetite better, ISS BG goal 140-180, update hemoglobin A1c DVT prophylaxis. Coumadin INR goal between 2 and 3 Full code History of Present Illness Chief Complaint: Abdominal pain, weakness Primary Care Provider: Consuelo Arreguin DO History obtained from patient, family, and records. Medical history significant for A. eliel on Coumadin, hypertension, hyperlipidemia, DM 2 insulin requiring, asthma, past tobacco abuse, chronic anemia (baseline hemoglobin of 11). Recent confinement 2013 for asthma exacerbation. Few days history of achy right-sided abdominal pain without nausea, emesis. Patient constipated. Last BM was yesterday. Noted to be dark. About 14 pound weight loss in the last few months, fair appetite. Denies dysuria symptoms. Shortness of breath, dry cough from usual asthma attack. Denies chest pain. Patient received IV Zosyn at the ER. 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 Allergies Allergy/AdvReac Type Severity Reaction Status Date / Time adhesive Allergy Mild REDNESS Verified 05/02/18 06:43 cephalexin [From Keflex] Allergy Mild Unknown Verified 05/02/18 06:43 Home Medications Home Medications Medication Instructions Recorded Confirmed Type albuterol sulfate [ProAir 2 puff INHALATION QID PRN 03/18/18 09/08/18 History RespiClick] allopurinol 300 mg PO DAILY 03/18/18 09/08/18 History atenolol 100 mg PO QAM 03/18/18 09/08/18 History digoxin [Digox] 0.125 mg PO DAILY 03/18/18 09/08/18 History fluticasone propion-salmeterol 1 puff INHALATION Q12H 03/18/18 09/08/18 History [Advair Diskus] fluticasone propionate [Flonase 2 spray INTRANASAL DAILY 03/18/18 09/08/18 History Allergy Relief] furosemide 40 mg PO BID 03/18/18 09/08/18 History insulin glargine [Lantus U-100 40 unit SUBCUT BID 03/18/18 09/08/18 History Insulin] isosorbide mononitrate 60 mg PO QAM 03/18/18 09/08/18 History levothyroxine 125 mcg PO DAILY 03/18/18 09/08/18 History liraglutide [Victoza 2-Trevor] 1.2 mg SUBCUT DAILY 03/18/18 09/08/18 History lisinopril 20 mg PO DAILY 03/18/18 09/08/18 History metformin 850 mg PO TID 03/18/18 09/08/18 History montelukast 10 mg PO PM 03/18/18 09/08/18 History potassium citrate 20 meq PO BID 03/18/18 09/08/18 History pravastatin 40 mg PO HS 03/18/18 09/08/18 History warfarin 7.5 mg PO DAILY 03/18/18 09/08/18 History atenolol 50 mg PO QPM 05/02/18 09/08/18 History insulin lispro protamin-lispro 18 unit SUBCUT QAM 05/02/18 09/08/18 History [Humalog Mix 75-25 KwikPen] ipratropium-albuterol 3 ml INHALATION QID PRN 05/02/18 09/08/18 History azithromycin [Zithromax Z-Trevor] 1 - 2 tabs PO UD 09/08/18 09/08/18 History ferrous sulfate 325 mg PO QPM 09/08/18 09/08/18 History magnesium hydroxide [Milk of 30 ml PO UD PRN 09/08/18 09/08/18 History Magnesia] xirzrszx-sek-ZM-lycopen-lutein 1 tab PO DAILY 09/08/18 09/08/18 History [Centrum Silver] omega 9-sgb-uoc-fish oil [Crockett-3] 1 cap PO BID 09/08/18 09/08/18 History pedi multivitamin no.79-iron 1 tab PO QPM 09/08/18 09/08/18 History [Flintstones with Iron] prednisone 10 mg PO UD PRN 09/08/18 09/08/18 History triamcinolone acetonide 1 applic TOPICAL BID PRN 09/08/18 09/08/18 History Past Med/Surg History Medical History Atrial fibrillation CHF (congestive heart failure) Diabetes Hypertension Pneumonia Surgical History History of cholecystectomy Social History Preferred Language: [place] Communication Ability: Effective [employer] Media Specialist Required: No Beliefs That Will Affect Care: None marital status: Current Living Situation: Spouse current occupational status: retired Other Information That Helps Us Care for You: No Feels Safe at Home: Yes Safety Concerns: Feels Safe At This Time Smoking Status: Unknown if ever smoked Hx Alcohol Use: No Hx Substance Use: No Review of Systems As per HPI, all 10 systems reviewed, all other ROS negative Physical Exam Vital Signs (Past 24 Hours): Last Vital Signs Temp 37.2 C 09/08/18 17:55 Pulse 95 H 09/08/18 21:15 Resp 21 09/08/18 21:15 BP 164/90 H 09/08/18 21:13 Pulse Ox 94 09/08/18 21:15 Physical Exam: GENERAL: Slightly anxious, obese, no respiratory distress SKIN: pallor, warm HEENT: pale palpebral conjunctivae, no ptosis, dry buccal mucosa NECK : Supple, short neck, no tenderness CHEST : Decreased breath sounds, no tenderness HEART : Irregular , no obvious murmurs ABDOMEN: Some distention, right-sided tenderness Rectal exam: Intact sphincter, yellow stool, heme-negative EXTREMITIES : Chronic LE venous stasis, no tenderness, no other conspicuous deformities noted NEUROLOGIC : Coherent, no facial asymmetry, no other gross focality Results & Data Laboratory Results Laboratory Results WBC 13.01 K/uL (4.8-10.8) H 09/08/18 18:41 RBC 3.56 M/uL (4.2-5.4) L 09/08/18 18:41 Hgb 9.9 g/dL (12.0-16.0) L 09/08/18 18:41 Hct 31.4 % (37-47) L 09/08/18 18:41 MCV 88.2 fL (80-100) 09/08/18 18:41 MCH 27.8 pg (25-34) 09/08/18 18:41 MCHC 31.5 g/dL (32-36) L 09/08/18 18:41 RDW Std Deviation 58.3 fL (36.4-46.3) H 09/08/18 18:41 RDW Coeff of Rusty 18.1 % (11.5-14.5) H 09/08/18 18:41 Plt Count 278 K/uL (130-400) 09/08/18 18:41 MPV 10.0 fL (7.4-10.4) 09/08/18 18:41 Immature Gran % (Auto) 0.2 % 09/08/18 18:41 Neut % (Auto) 80.5 % 09/08/18 18:41 Lymph % (Auto) 11.5 % 09/08/18 18:41 [place] % (Auto) 6.2 % 09/08/18 18:41 Eos % (Auto) 1.4 % 09/08/18 18:41 Baso % (Auto) 0.2 % 09/08/18 18:41 Immature Gran # (Auto) 0.03 K/uL (0.00-0.02) H 09/08/18 18:41 Neut # (Auto) 10.47 K/uL (1.4-6.5) H 09/08/18 18:41 Lymph # (Auto) 1.49 K/uL (1.2-3.4) 09/08/18 18:41 [place] # (Auto) 0.81 K/uL (0.11-0.59) H 09/08/18 18:41 Eos # (Auto) 0.18 K/uL (0-0.5) 09/08/18 18:41 Baso # (Auto) 0.03 K/uL (0-0.2) 09/08/18 18:41 PT 32.5 Seconds (9.0-12.0) H 09/08/18 18:41 INR 3.5 (0.9-1.1) H 09/08/18 18:41 APTT 45.3 Seconds (21.0-31.0) H* 09/08/18 18:41 PTT Ratio 1.7 09/08/18 18:41 Sodium 138 mmol/L (136-145) 09/08/18 18:41 Potassium 4.3 mmol/L (3.5-5.1) 09/08/18 18:41 Chloride 105 mmol/L (98-107) 09/08/18 18:41 Carbon Dioxide 25 mmol/L (21-32) 09/08/18 18:41 Anion Gap 8.0 (3-11) 09/08/18 18:41 BUN 32 mg/dl (7-18) H 09/08/18 18:41 Creatinine 1.05 mg/dl (0.6-1.2) 09/08/18 18:41 Est Cr Clr Drug Dosing 60.4 ml/min 09/08/18 18:41 Est GFR ( Amer) 61.9 09/08/18 18:41 Est GFR (Non-Af Amer) 53.4 09/08/18 18:41 BUN/Creatinine Ratio 30.0 (10-20) H 09/08/18 18:41 Glucose 124 mg/dl (70-99) H 09/08/18 18:41 Lactate 2.1 mmol/L (0.4-2.0) H* 09/08/18 18:41 Calcium 9.7 mg/dl (8.5-10.1) 09/08/18 18:41 Magnesium 1.9 mg/dl (1.8-2.4) 09/08/18 18:41 Total Bilirubin 0.3 mg/dl (0.2-1) 09/08/18 18:41 AST 17 U/L (15-37) 09/08/18 18:41 ALT 21 U/L (12-78) 09/08/18 18:41 Alkaline Phosphatase 103 U/L (45-117) 09/08/18 18:41 Troponin I < 0.015 ng/ml (0-0.045) 09/08/18 18:41 Total Protein 7.5 gm/dl (6.4-8.2) 09/08/18 18:41 Albumin 3.2 gm/dl (3.4-5.0) L 09/08/18 18:41 Globulin 4.3 gm/dl (2.5-4.0) H 09/08/18 18:41 Albumin/Globulin Ratio 0.7 (0.9-2) L 09/08/18 18:41 Lipase 290 U/L (73-393) 09/08/18 18:41 Procalcitonin 0.07 ng/ml (0-0.5) 09/08/18 18:42 TSH 2.940 uIu/ml (0.300-4.500) 09/08/18 18:41 Urine Color Yellow 09/08/18 18:41 Urine Appearance Cloudy (Clear) H 09/08/18 18:41 Urine pH 7.5 (4.5-7.5) 09/08/18 18:41 Ur Specific [place] 1.014 (1.000-1.030) 09/08/18 18:41 Urine Protein Trace (Negative) H 09/08/18 18:41 Urine Glucose (UA) Negative (Negative) 09/08/18 18:41 Urine Ketones Negative (Negative) 09/08/18 18:41 Urine Blood Trace (Negative) H 09/08/18 18:41 Urine Nitrite Negative (Negative) 09/08/18 18:41 Urine Bilirubin Negative (Negative) 09/08/18 18:41 Urine Urobilinogen Negative (Negative) 09/08/18 18:41 Ur Leukocyte Esterase 3+ (Negative) H 09/08/18 18:41 Urine WBC (Auto) >30 /hpf (0-5) H 09/08/18 18:41 Urine RBC (Auto) 0-4 /hpf (0-4) 09/08/18 18:41 U Hyaline Cast (Auto) 1-5 /lpf (0-5) 09/08/18 18:41 U Epithel Cells (Auto) 5-10 /lpf (0-5) H 09/08/18 18:41 Urine Bacteria (Auto) 2+ (Negative) H 09/08/18 18:41 Digoxin 0.9 ng/ml (0.8-2.0) 09/08/18 18:41 Diagnostic Findings Chest x-ray: Cardiomegaly CT abdomen pelvis: 1. No evidence of bowel obstruction. No evidence of free air 2. Diverticulosis. No evidence of acute diverticulitis 3. Minimally dilated appendix, but no evidence of acute appendicitis. 4. Innumerable bilateral renal cysts 5. Bilateral nephrolithiasis 6. Mild hepatosplenomegaly 7. Air within the bladder likely iatrogenic 8. Uterine fibroids (1) Abdominal pain Abdominal location: right upper quadrant Qualified Code(s): R10.11 - Right upper quadrant pain
[2018-09-08] MEDS ORDERED: TRAMADOL HCL 50 MG TABLET PO PRN (21:54)
[2018-09-08] MEDS ORDERED: PROCHLORPERAZINE 5 MG in SYRINGE 4 ML IV PRN (21:54)
[2018-09-08] MEDS ORDERED: ACETAMINOPHEN 325 MG TAB PO PRN (21:54)
[2018-09-08] MEDS ORDERED: XOPENEX/ATROVENT 1.25mg/0.5MG NEB COMBO NEB PRN (21:54)
[2018-09-08] MEDS ORDERED: GLUCAGON FOR INJ 1 MG VIAL SQ PRN (21:59)
[2018-09-08] MEDS ORDERED: CARBOHYDRATES FOR HYPOGLYCEMIA PO PRN (21:59)
[2018-09-08] MEDS ORDERED: POLYETHYLENE (MIRALAX) 17 GM PACK PO PRN (21:59)
[2018-09-08] MEDS ORDERED: DEXTROSE 50% 50 ML SYRINGE IV PRN (21:59)
[2018-09-08] MEDS ORDERED: GLUCOSE 10 TABS/TUBE PO PRN (21:59)
[2018-09-08] MEDS ORDERED: GLUCOSE 40% GEL 15 GM TUBE PO PRN (21:59)
[2018-09-08] MEDS ORDERED: POLYETHYLENE (MIRALAX) 17 GM PACK PO STA (22:03)
[2018-09-08] MEDS ORDERED: XOPENEX/ATROVENT 1.25mg/0.5MG NEB COMBO NEB STA (22:03)
[2018-09-08] MEDS ORDERED: LEVALBUTEROL 1.25MG/0.5ML NEB INH STA (22:11)
[2018-09-08] MEDS ORDERED: IPRATROPIUM BROMIDE NEB SOLN 0.02% 2.5 ML VIAL INH STA (22:12)
[2018-09-08 22:16] LABS: Reticulocyte % 2.4 % (0.5-2.0); Reticulocytes # 0.09 10^6/uL (0.02-0.10)
[2018-09-08] MEDS ORDERED: SODIUM CHLORIDE 0.9% 1000ML 1,000 ML IV ONE (23:45)
--- NOTE | 2018-09-09 00:02 | Hospitalist Progress Note ---
Date of Service September 09, 2018 delayed entry date of service 09/08 Physical Exam Vital Signs (Past 24 Hours): Last Vital Signs Temp 37.2 C 09/08/18 17:55 Pulse 81 09/08/18 22:45 Resp 12 09/08/18 22:45 BP 140/78 09/08/18 22:31 Pulse Ox 96 09/08/18 22:45
[2018-09-09] MEDS: IPRATROPIUM BROMIDE NEB SOLN 0.02% 2.5 ML VIAL INH PRN ×2 (00:03→18:34)
[2018-09-09] MEDS: LEVALBUTEROL 1.25MG/0.5ML NEB INH PRN ×2 (00:03→18:34)
[2018-09-09] MEDS: INSULIN ASPART 100 UNITS/ML 3 ML PEN SC SCH ×5 (00:15→21:07)
[2018-09-09] MEDS: FLUTICASONE/SALMETEROL 100/50 (ADVAIR) 14 PUFF/1 INHALER INH SCH ×3 (00:16→21:03)
[2018-09-09] MEDS: DOCUSATE SODIUM/SENNA 50/8.6MG TAB PO SCH ×3 (00:16→21:06)
[2018-09-09] MEDS: ATENOLOL 50 MG TABLET PO SCH ×3 (00:17→21:03)
[2018-09-09] MEDS: MONTELUKAST SODIUM 10 MG TABLET PO SCH ×2 (00:19→21:05)
[2018-09-09] MEDS ORDERED: INSULIN GLARGINE SOLOSTAR 100 UNITS/ML 3 ML PEN SQ SCH ×2 (04:15→09:00)
[2018-09-09] MEDS: LEVOTHYROXINE SODIUM 125 MCG TABLET PO SCH (04:45)
[2018-09-09 06:38] LABS: Basophils # (auto) 0.02 K/uL (0-0.2); Basophils % (auto) 0.2 %; Eosinophils # (auto) 0.11 K/uL (0-0.5); Eosinophils % (auto) 1.1 %; Hematocrit (blood only) 28.1 % (37-47); Hemoglobin 8.8 g/dL (12.0-16.0); Immature Granulocytes # (auto) 0.02 K/uL (0.00-0.02); Immature Granulocytes % (auto) 0.2 %; Lymphocytes # (auto) 1.24 K/uL (1.2-3.4); Lymphocytes % (auto) 11.8 %; Mean Corpuscular Hgb Conc 31.3 g/dL (32-36); Mean Corpuscular Volume 86.2 fL (80-100); Mean Platelet Volume 9.6 fL (7.4-10.4); Monocytes # (auto) 0.85 K/uL (0.11-0.59); Monocytes % (auto) 8.1 %; Neutrophils # (auto) 8.23 K/uL (1.4-6.5); Neutrophils % (auto) 78.6 %; Platelet Count 225 K/uL (130-400); RDW Standard Deviation 57.3 fL (36.4-46.3); Red Blood Count 3.26 M/uL (4.2-5.4); White Blood Count 10.47 K/uL (4.8-10.8)
[2018-09-09 06:45] LABS: INR 2.8 (0.9-1.1); Prothrombin Time 26.6 Seconds (9.0-12.0)
[2018-09-09 06:50] LABS: Estimated Average Glucose 151 mg/dl; Hemoglobin A1C 6.9 % (4.5-5.6)
[2018-09-09 07:15] LABS: Calcium 8.8 mg/dl (8.5-10.1); Creatinine Clr Calc Pharmacy 26.8 ml/min; Est GFR (African American) 64.9
[2018-09-09 07:21] LABS: Ferritin 14.1 ng/ml (8-388)
[2018-09-09 07:34] LABS: Vitamin B12 265 pg/ml (211-911)
[2018-09-09 07:35] LABS: Folate (Folic Acid) > 24.00 ng/ml (>5.38)
[2018-09-09] MEDS: FLUTICASONE PROPIONATE NA SPR 16 GM BTL NAE SCH (08:31)
[2018-09-09] MEDS: CEROVITE ADV FORMULA TAB PO SCH (08:31)
[2018-09-09] MEDS: ISOSORBIDE MONO EXTENDED REL 60 MG TABCR PO SCH (08:31)
[2018-09-09] MEDS: LISINOPRIL 20 MG TAB PO SCH (08:32)
[2018-09-09] MEDS: ALLOPURINOL 300 MG TAB PO SCH (08:32)
[2018-09-09] MEDS ORDERED: LACTULOSE SYRUP 10 GM/15 ML BTL 473 ML PO PRN (11:08)
--- NOTE | 2018-09-09 11:17 | Hospitalist Progress Note ---
Date of Service September 09, 2018 Assessment & Plan (1) Abdominal pain: Likely related toSecondary to constipation CAT scan abdomen pelvis contrast: No signs of obstruction, diverticulitis Senokot-S started, will add as needed lactulose If still without bowel movement, will consider enema Will wait for patient response, hopefully will have relief with bowel movement Iron deficiency anemia Rule out GI bleed in the setting of Coumadin use Globin 12 at baseline, now at 8.8 Iron level 24 already on iron once a day Reports history of dark stools Will obtain fecal occult blood test, if positive will consult GI in light of patient's history of weight loss Continue Coumadin cautiously for now Increase ferrous sulfate to twice a day Asymptomatic pyuria, no sepsis Contaminated specimen Denies urinary symptoms, afebrile A. fib on Coumadin INR admission 3.5 INR today 2.8 Usually takes Coumadin 7.5 daily Reduce Coumadin to 5 mg daily Monitor INR daily hypertension, slightly elevated secondary discomfort Monitor DM 2 insulin requiring, well controlled as of recent outpatient hemoglobin A1c of 6.9 from November 2017 A1c remains at 6.9 asthma, past tobacco abuse No overt wheezing noted on clinical exam. DVT prophylaxis. Coumadin INR goal between 2 and 3 Full code Disposition Lives at home with family Anticipate discharge to home medically stable disposition Subjective Follow-up for abdominal Seen resting in bed, comfortable, not in distress Still has some mild right upper quadrant/right flank abdominal discomfort, improved, no bowel movements yet since admission, positive flatus, no nausea or vomiting Denies chest pain, shortness of breath, cough, palpitations, dizziness No hematochezia noted Denies other symptoms Physical Exam Vital Signs (Past 24 Hours): Last Vital Signs Temp 36.7 C 09/09/18 07:29 Pulse 91 H 09/09/18 07:29 Resp 18 09/09/18 07:29 BP 139/75 09/09/18 07:29 Pulse Ox 99 09/09/18 07:29 Physical Exam: General- oriented x 3, not in distress, speaks in sentences with no effort or accessory muscle use Head- atraumatic Eyes- PERRL, EOMI, anicteric ENT- oropharynx clear Neck- supple, no JVD, no adenopathy, no thyromegaly; carotids +2/2, no bruits appreciated Lungs- clear to auscultation bilaterally, no rales/wheezes Heart- normal rate, regular rhythm; no murmur, no gallop, no rub appreciated Abdomen- normal bowel sounds, nondistended, soft, nontender, no masses or hepatosplenomegaly Extremities- no pretibial edema, no calf tenderness; peripheral pulses intact Neuro- alert, oriented x 3; CN 2-12 grossly intact; motor 5/5 bilaterally;sensation 100% on all extremities; no other gross focal neurologic deficits Skin- warm & dry Results & Data Laboratory Results Laboratory Results - last 24 hr 09/08/18 09/08/18 09/08/18 18:41 18:41 18:41 WBC 13.01 H RBC 3.56 L Hgb 9.9 L Hct 31.4 L MCV 88.2 MCH 27.8 MCHC 31.5 L RDW Std Deviation 58.3 H RDW Coeff of Rusty 18.1 H Plt Count 278 MPV 10.0 Immature Gran % (Auto) 0.2 Neut % (Auto) 80.5 Lymph % (Auto) 11.5 [place] % (Auto) 6.2 Eos % (Auto) 1.4 Baso % (Auto) 0.2 Reticulocyte % (Auto) 2.4 H Immature Gran # (Auto) 0.03 H Neut # (Auto) 10.47 H Lymph # (Auto) 1.49 [place] # (Auto) 0.81 H Eos # (Auto) 0.18 Baso # (Auto) 0.03 Reticulocyte # 0.09 Absolute Nucleated RBC 0.00 Nucleated RBC % (auto) 0.0 PT 32.5 H INR 3.5 H APTT 45.3 H* PTT Ratio 1.7 Sodium 138 Potassium 4.3 Chloride 105 Carbon Dioxide 25 Anion Gap 8.0 BUN 32 H Creatinine 1.05 Est Cr Clr Drug Dosing 60.4 Est GFR ( Amer) 61.9 Est GFR (Non-Af Amer) 53.4 BUN/Creatinine Ratio 30.0 H Glucose 124 H POC Glucose Estimat Average Glucose Hemoglobin A1c Lactate Calcium 9.7 Magnesium 1.9 Iron TIBC Transferrin Ferritin Total Bilirubin 0.3 AST 17 ALT 21 Alkaline Phosphatase 103 Troponin I < 0.015 Total Protein 7.5 Albumin 3.2 L Globulin 4.3 H Albumin/Globulin Ratio 0.7 L Lipase 290 Vitamin B12 Folate Procalcitonin TSH 2.940 Urine Color Urine Appearance Urine pH Ur Specific [place] Urine Protein Urine Glucose (UA) Urine Ketones Urine Blood Urine Nitrite Urine Bilirubin Urine Urobilinogen Ur Leukocyte Esterase Urine WBC (Auto) Urine RBC (Auto) U Hyaline Cast (Auto) U Epithel Cells (Auto) Urine Bacteria (Auto) Digoxin Blood Type Antibody Screen 09/08/18 09/08/18 09/08/18 18:41 18:41 18:41 WBC RBC Hgb Hct MCV MCH MCHC RDW Std Deviation RDW Coeff of Rusty Plt Count MPV Immature Gran % (Auto) Neut % (Auto) Lymph % (Auto) [place] % (Auto) Eos % (Auto) Baso % (Auto) Reticulocyte % (Auto) Immature Gran # (Auto) Neut # (Auto) Lymph # (Auto) [place] # (Auto) Eos # (Auto) Baso # (Auto) Reticulocyte # Absolute Nucleated RBC Nucleated RBC % (auto) PT INR APTT PTT Ratio Sodium Potassium Chloride Carbon Dioxide Anion Gap BUN Creatinine Est Cr Clr Drug Dosing Est GFR ( Amer) Est GFR (Non-Af Amer) BUN/Creatinine Ratio Glucose POC Glucose Estimat Average Glucose Hemoglobin A1c Lactate 2.1 H* Calcium Magnesium Iron TIBC Transferrin Ferritin Total Bilirubin AST ALT Alkaline Phosphatase Troponin I Total Protein Albumin Globulin Albumin/Globulin Ratio Lipase Vitamin B12 Folate Procalcitonin TSH Urine Color Yellow Urine Appearance Cloudy H Urine pH 7.5 Ur Specific [place] 1.014 Urine Protein Trace H Urine Glucose (UA) Negative Urine Ketones Negative Urine Blood Trace H Urine Nitrite Negative Urine Bilirubin Negative Urine Urobilinogen Negative Ur Leukocyte Esterase 3+ H Urine WBC (Auto) >30 H Urine RBC (Auto) 0-4 U Hyaline Cast (Auto) 1-5 U Epithel Cells (Auto) 5-10 H Urine Bacteria (Auto) 2+ H Digoxin 0.9 Blood Type Antibody Screen 09/08/18 09/08/18 09/08/18 18:41 18:42 21:42 WBC RBC Hgb Hct MCV MCH MCHC RDW Std Deviation RDW Coeff of Rusty Plt Count MPV Immature Gran % (Auto) Neut % (Auto) Lymph % (Auto) [place] % (Auto) Eos % (Auto) Baso % (Auto) Reticulocyte % (Auto) Immature Gran # (Auto) Neut # (Auto) Lymph # (Auto) [place] # (Auto) Eos # (Auto) Baso # (Auto) Reticulocyte # Absolute Nucleated RBC Nucleated RBC % (auto) PT INR APTT PTT Ratio Sodium Potassium Chloride Carbon Dioxide Anion Gap BUN Creatinine Est Cr Clr Drug Dosing Est GFR ( Amer) Est GFR (Non-Af Amer) BUN/Creatinine Ratio Glucose POC Glucose Estimat Average Glucose 151 Hemoglobin A1c 6.9 H Lactate 1.8 Calcium Magnesium Iron TIBC Transferrin Ferritin Total Bilirubin AST ALT Alkaline Phosphatase Troponin I Total Protein Albumin Globulin Albumin/Globulin Ratio Lipase Vitamin B12 Folate Procalcitonin 0.07 TSH Urine Color Urine Appearance Urine pH Ur Specific [place] Urine Protein Urine Glucose (UA) Urine Ketones Urine Blood Urine Nitrite Urine Bilirubin Urine Urobilinogen Ur Leukocyte Esterase Urine WBC (Auto) Urine RBC (Auto) U Hyaline Cast (Auto) U Epithel Cells (Auto) Urine Bacteria (Auto) Digoxin Blood Type Antibody Screen 09/08/18 09/08/18 09/09/18 21:42 22:58 00:07 WBC RBC Hgb Hct MCV MCH MCHC RDW Std Deviation RDW Coeff of Rusty Plt Count MPV Immature Gran % (Auto) Neut % (Auto) Lymph % (Auto) [place] % (Auto) Eos % (Auto) Baso % (Auto) Reticulocyte % (Auto) Immature Gran # (Auto) Neut # (Auto) Lymph # (Auto) [place] # (Auto) Eos # (Auto) Baso # (Auto) Reticulocyte # Absolute Nucleated RBC Nucleated RBC % (auto) PT INR APTT PTT Ratio Sodium Potassium Chloride Carbon Dioxide Anion Gap BUN Creatinine Est Cr Clr Drug Dosing Est GFR ( Amer) Est GFR (Non-Af Amer) BUN/Creatinine Ratio Glucose POC Glucose 155 H 142 H Estimat Average Glucose Hemoglobin A1c Lactate Calcium Magnesium Iron TIBC Transferrin Ferritin Total Bilirubin AST ALT Alkaline Phosphatase Troponin I Total Protein Albumin Globulin Albumin/Globulin Ratio Lipase Vitamin B12 Folate Procalcitonin TSH Urine Color Urine Appearance Urine pH Ur Specific [place] Urine Protein Urine Glucose (UA) Urine Ketones Urine Blood Urine Nitrite Urine Bilirubin Urine Urobilinogen Ur Leukocyte Esterase Urine WBC (Auto) Urine RBC (Auto) U Hyaline Cast (Auto) U Epithel Cells (Auto) Urine Bacteria (Auto) Digoxin Blood Type A Negative Antibody Screen NEGATIVE 09/09/18 09/09/18 09/09/18 04:44 06:20 06:20 WBC 10.47 RBC 3.26 L Hgb 8.8 L Hct 28.1 L MCV 86.2 MCH 27.0 MCHC 31.3 L RDW Std Deviation 57.3 H RDW Coeff of Rusty 18.0 H Plt Count 225 MPV 9.6 Immature Gran % (Auto) 0.2 Neut % (Auto) 78.6 Lymph % (Auto) 11.8 [place] % (Auto) 8.1 Eos % (Auto) 1.1 Baso % (Auto) 0.2 Reticulocyte % (Auto) Immature Gran # (Auto) 0.02 Neut # (Auto) 8.23 H Lymph # (Auto) 1.24 [place] # (Auto) 0.85 H Eos # (Auto) 0.11 Baso # (Auto) 0.02 Reticulocyte # Absolute Nucleated RBC Nucleated RBC % (auto) PT 26.6 H INR 2.8 H APTT PTT Ratio Sodium Potassium Chloride Carbon Dioxide Anion Gap BUN Creatinine Est Cr Clr Drug Dosing Est GFR ( Amer) Est GFR (Non-Af Amer) BUN/Creatinine Ratio Glucose POC Glucose 143 H Estimat Average Glucose Hemoglobin A1c Lactate Calcium Magnesium Iron TIBC Transferrin Ferritin Total Bilirubin AST ALT Alkaline Phosphatase Troponin I Total Protein Albumin Globulin Albumin/Globulin Ratio Lipase Vitamin B12 Folate Procalcitonin TSH Urine Color Urine Appearance Urine pH Ur Specific [place] Urine Protein Urine Glucose (UA) Urine Ketones Urine Blood Urine Nitrite Urine Bilirubin Urine Urobilinogen Ur Leukocyte Esterase Urine WBC (Auto) Urine RBC (Auto) U Hyaline Cast (Auto) U Epithel Cells (Auto) Urine Bacteria (Auto) Digoxin Blood Type Antibody Screen 09/09/18 09/09/18 09/09/18 06:20 06:20 07:41 WBC RBC Hgb Hct MCV MCH MCHC RDW Std Deviation RDW Coeff of Rusty Plt Count MPV Immature Gran % (Auto) Neut % (Auto) Lymph % (Auto) [place] % (Auto) Eos % (Auto) Baso % (Auto) Reticulocyte % (Auto) Immature Gran # (Auto) Neut # (Auto) Lymph # (Auto) [place] # (Auto) Eos # (Auto) Baso # (Auto) Reticulocyte # Absolute Nucleated RBC Nucleated RBC % (auto) PT INR APTT PTT Ratio Sodium 138 Potassium 4.0 Chloride 106 Carbon Dioxide 26 Anion Gap 6.0 BUN 26 H Creatinine 1.01 Est Cr Clr Drug Dosing 26.8 Est GFR ( Amer) 64.9 Est GFR (Non-Af Amer) 56.0 BUN/Creatinine Ratio 26.0 H Glucose 135 H POC Glucose 164 H Estimat Average Glucose Hemoglobin A1c Lactate Calcium 8.8 Magnesium Iron 24 L TIBC 323 Transferrin 253 Ferritin 14.1 Total Bilirubin AST ALT Alkaline Phosphatase Troponin I Total Protein Albumin Globulin Albumin/Globulin Ratio Lipase Vitamin B12 265 Folate > 24.00 Procalcitonin TSH Urine Color Urine Appearance Urine pH Ur Specific [place] Urine Protein Urine Glucose (UA) Urine Ketones Urine Blood Urine Nitrite Urine Bilirubin Urine Urobilinogen Ur Leukocyte Esterase Urine WBC (Auto) Urine RBC (Auto) U Hyaline Cast (Auto) U Epithel Cells (Auto) Urine Bacteria (Auto) Digoxin Blood Type Antibody Screen 09/09/18 11:08 WBC RBC Hgb Hct MCV MCH MCHC RDW Std Deviation RDW Coeff of Rusty Plt Count MPV Immature Gran % (Auto) Neut % (Auto) Lymph % (Auto) [place] % (Auto) Eos % (Auto) Baso % (Auto) Reticulocyte % (Auto) Immature Gran # (Auto) Neut # (Auto) Lymph # (Auto) [place] # (Auto) Eos # (Auto) Baso # (Auto) Reticulocyte # Absolute Nucleated RBC Nucleated RBC % (auto) PT INR APTT PTT Ratio Sodium Potassium Chloride Carbon Dioxide Anion Gap BUN Creatinine Est Cr Clr Drug Dosing Est GFR ( Amer) Est GFR (Non-Af Amer) BUN/Creatinine Ratio Glucose POC Glucose 230 H Estimat Average Glucose Hemoglobin A1c Lactate Calcium Magnesium Iron TIBC Transferrin Ferritin Total Bilirubin AST ALT Alkaline Phosphatase Troponin I Total Protein Albumin Globulin Albumin/Globulin Ratio Lipase Vitamin B12 Folate Procalcitonin TSH Urine Color Urine Appearance Urine pH Ur Specific [place] Urine Protein Urine Glucose (UA) Urine Ketones Urine Blood Urine Nitrite Urine Bilirubin Urine Urobilinogen Ur Leukocyte Esterase Urine WBC (Auto) Urine RBC (Auto) U Hyaline Cast (Auto) U Epithel Cells (Auto) Urine Bacteria (Auto) Digoxin Blood Type Antibody Screen (1) Abdominal pain Abdominal location: right upper quadrant Qualified Code(s): R10.11 - Right upper quadrant pain
[2018-09-09] MEDS: WARFARIN SOD 5 MG TAB PO SCH (16:54)
[2018-09-09] MEDS: DIGOXIN 0.125 MG TAB PO SCH (16:54)
[2018-09-09] MEDS ORDERED: FERROUS SULFATE 325 MG TAB PO SCH (21:00)
[2018-09-09] MEDS: PRAVASTATIN SOD 40 MG TAB PO SCH (21:05)
[2018-09-09] MEDS: INSULIN GLARGINE SOLOSTAR 100 UNITS/ML 3 ML PEN SQ SCH (21:06)
[2018-09-09] MEDS: POTASSIUM CITRATE 10 MEQ TAB PO SCH (21:06)
[2018-09-09] MEDS: FERROUS SULFATE 325 MG TAB PO SCH (21:06)
[2018-09-09] MEDS ORDERED: AZTREONAM CONSULT ACTIVE PRN (23:41)
[2018-09-10] MEDS: AZTREONAM 2,000 MG in DEXTROSE 5% 100 ML IV SCH ×3 (00:11→15:47)
[2018-09-10] MEDS: MoRPHine SULFATE 4 MG/ML 1 ML CARP\\VIAL IV PRN ×2 (02:51→08:40)
[2018-09-10] MEDS: LEVOTHYROXINE SODIUM 125 MCG TABLET PO SCH (05:45)
[2018-09-10 06:05] LABS: Basophils # (auto) 0.02 K/uL (0-0.2); Basophils % (auto) 0.2 %; Eosinophils # (auto) 0.14 K/uL (0-0.5); Eosinophils % (auto) 1.6 %; Hematocrit (blood only) 26.5 % (37-47); Hemoglobin 8.3 g/dL (12.0-16.0); Immature Granulocytes # (auto) 0.03 K/uL (0.00-0.02); Immature Granulocytes % (auto) 0.3 %; Lymphocytes # (auto) 1.59 K/uL (1.2-3.4); Lymphocytes % (auto) 18.5 %; Mean Corpuscular Hgb Conc 31.3 g/dL (32-36); Monocytes # (auto) 0.59 K/uL (0.11-0.59); Monocytes % (auto) 6.9 %; Neutrophils # (auto) 6.22 K/uL (1.4-6.5); Neutrophils % (auto) 72.5 %; Platelet Count 218 K/uL (130-400); RDW Coefficient of Variation 18.3 % (11.5-14.5); RDW Standard Deviation 57.1 fL (36.4-46.3); Red Blood Count 3.08 M/uL (4.2-5.4); White Blood Count 8.59 K/uL (4.8-10.8)
[2018-09-10 06:40] LABS: BUN Creatinine Ratio 21.9 (10-20); Calcium 8.5 mg/dl (8.5-10.1); Creatinine Clr Calc Pharmacy 69.3 ml/min; Est GFR (African American) 72.6; Est GFR (Non-African American) 62.6; Potassium 4.3 mmol/L (3.5-5.1)
[2018-09-10] MEDS: INSULIN ASPART 100 UNITS/ML 3 ML PEN SC SCH ×4 (08:53→20:30)
[2018-09-10] MEDS: FLUTICASONE/SALMETEROL 100/50 (ADVAIR) 14 PUFF/1 INHALER INH SCH ×2 (09:24→20:28)
[2018-09-10] MEDS: WARFARIN SOD 5 MG TAB PO SCH (09:25)
[2018-09-10] MEDS: FLUTICASONE PROPIONATE NA SPR 16 GM BTL NAE SCH (09:26)
[2018-09-10] MEDS: FERROUS SULFATE 325 MG TAB PO SCH ×2 (09:26→20:29)
[2018-09-10] MEDS: ISOSORBIDE MONO EXTENDED REL 60 MG TABCR PO SCH (09:27)
[2018-09-10] MEDS: INSULIN GLARGINE SOLOSTAR 100 UNITS/ML 3 ML PEN SQ SCH ×2 (09:27→20:30)
[2018-09-10] MEDS: DOCUSATE SODIUM/SENNA 50/8.6MG TAB PO SCH ×2 (09:28→20:29)
[2018-09-10] MEDS: ATENOLOL 50 MG TABLET PO SCH ×2 (09:28→20:29)
[2018-09-10] MEDS: CEROVITE ADV FORMULA TAB PO SCH (09:28)
[2018-09-10] MEDS: LISINOPRIL 20 MG TAB PO SCH (09:29)
[2018-09-10] MEDS: ALLOPURINOL 300 MG TAB PO SCH (09:29)
[2018-09-10] MEDS: POTASSIUM CITRATE 10 MEQ TAB PO SCH ×2 (09:29→20:29)
--- NOTE | 2018-09-10 10:50 | Gastrointestinal Consultation ---
Date of Consultation September 10, 2018 Assessment & Plan (1) Abdominal pain: 73 year old female admitted w/ RUQ abdominal pain, nausea and dark stools. She is on ASA, coumadin for history of afib. This AM, vital signs stable. No leukocytosis w/ HGB 8.3 w/ plt 218. No BUN elevation. LFTs and lipase are non- elevated. Labs and presentation concerning for UGI bleed, anticoagulated on ASA, coumadin. She had regular breakfast this AM scrambled eggs and a piece of toast. - NPO - IV bolus and drip - EGD timing to be determined - Trend H&H - Trend INR - Monitor and document all GI output - Transfuse PRN - Would recommend to hold ASA, coumadin if able given concern for dark stools, anemia Thank you for allowing us to participate in the care of this patient. Please call with any acute changes, questions or concerns. Please see addendum below with additional recommendation from my supervising physician. Supervising Physician Co-Signing Physician Notes I have seen and examined the patient with WILFRED Morris whose note reflects our findings and plan. On ASA and coumadin. EGD today. History of Present Illness Reason for Consultation: abdominal pain, melena Requesting Physician: Flor Attending Physician: Kellie Ray MD History of Present Illness 73 year old female with afib on coumadin, HTN, dyslipidemia, T2DM, hypothyroidism, asthma, past tobacco abuse, chronic anemia w/ baseline HGB 11 who presents to the ED for evaluation of abdominal pain - GI asked to evaluate for persisnt abdominal pain and melena. Pt was seen and evaluated, chart reviewed. Family at bedside. Notes that she developed generalized upper abdominal pain starting two days ago. Intermittent at first. Associated w/ mild nausea and constipation. Pain persisted, become constant. Severe. Burning and sharp. Associated w/ burping, nausea. No vomiting. had loose, frequent stools yesterday. Notes these were dark at times. Denies tarry stools. No BRB. This AM persistent pain. No fever, chils, CP, SOB. NSAIDs ASA AC coumadin ETOH none CT: No evidence of bowel obstruction. No evidence of free airDiverticulosis. No evidence of acute diverticulitis Minimally dilated appendix, but no evidence of acute appendicitis EGD: none Colonoscopy: prior but unable to find Allergies Allergy/AdvReac Type Severity Reaction Status Date / Time adhesive Allergy Mild REDNESS Verified 05/02/18 06:43 cephalexin [From Keflex] Allergy Mild Unknown Verified 05/02/18 06:43 Home Medications Home Medications Medication Instructions Recorded Confirmed Type albuterol sulfate [ProAir 2 puff INHALATION QID PRN 03/18/18 09/08/18 History RespiClick] allopurinol 300 mg PO DAILY 03/18/18 09/08/18 History atenolol 100 mg PO QAM 03/18/18 09/08/18 History digoxin [Digox] 0.125 mg PO DAILY 03/18/18 09/08/18 History fluticasone propion-salmeterol 1 puff INHALATION Q12H 03/18/18 09/08/18 History [Advair Diskus] fluticasone propionate [Flonase 2 spray INTRANASAL DAILY 03/18/18 09/08/18 History Allergy Relief] furosemide 40 mg PO BID 03/18/18 09/08/18 History insulin glargine [Lantus U-100 40 unit SUBCUT BID 03/18/18 09/08/18 History Insulin] isosorbide mononitrate 60 mg PO QAM 03/18/18 09/08/18 History levothyroxine 125 mcg PO DAILY 03/18/18 09/08/18 History liraglutide [Victoza 2-Trevor] 1.2 mg SUBCUT DAILY 03/18/18 09/08/18 History lisinopril 20 mg PO DAILY 03/18/18 09/08/18 History metformin 850 mg PO TID 03/18/18 09/08/18 History montelukast 10 mg PO PM 03/18/18 09/08/18 History potassium citrate 20 meq PO BID 03/18/18 09/08/18 History pravastatin 40 mg PO HS 03/18/18 09/08/18 History warfarin 7.5 mg PO DAILY 03/18/18 09/08/18 History atenolol 50 mg PO QPM 05/02/18 09/08/18 History insulin lispro protamin-lispro 18 unit SUBCUT QAM 05/02/18 09/08/18 History [Humalog Mix 75-25 KwikPen] ipratropium-albuterol 3 ml INHALATION QID PRN 05/02/18 09/08/18 History azithromycin [Zithromax Z-Trevor] 1 - 2 tabs PO UD 09/08/18 09/08/18 History ferrous sulfate 325 mg PO QPM 09/08/18 09/08/18 History magnesium hydroxide [Milk of 30 ml PO UD PRN 09/08/18 09/08/18 History Magnesia] orpbukbe-wrs-RN-lycopen-lutein 1 tab PO DAILY 09/08/18 09/08/18 History [Centrum Silver] omega 6-acm-jbm-fish oil [[place]-3] 1 cap PO BID 09/08/18 09/08/18 History pedi multivitamin no.79-iron 1 tab PO QPM 09/08/18 09/08/18 History [Flintstones with Iron] prednisone 10 mg PO UD PRN 09/08/18 09/08/18 History triamcinolone acetonide 1 applic TOPICAL BID PRN 09/08/18 09/08/18 History Patient History Medical History Atrial fibrillation CHF (congestive heart failure) Diabetes Hypertension Pneumonia Surgical History History of cholecystectomy Social History Preferred Language: Bengali Communication Ability: Effective 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 Required: No Beliefs That Will Affect Care: None marital status: Current Living Situation: Spouse current occupational status: retired Other Information That Helps Us Care for You: No Feels Safe at Home: Yes Safety Concerns: Feels Safe At This Time Smoking Status: Unknown if ever smoked Hx Alcohol Use: No Hx Substance Use: No Review of Systems Constitutional: + fatigue; no fever, no chills and no weakness Respiratory: no cough, no dyspnea and no dyspnea on exertion Cardiovascular: no chest pain, no chest pain at rest, no dyspnea, no dyspnea on exertion and no palpitations Gastrointestinal: + abdominal pain, + belching and + nausea; no bloating, no early satiety, no heartburn, no vomiting, no coffee ground emesis, no hematemesis, no pain with swallowing, no dysphagia, no cramping, no excessive fl atulence, no change in bowel habits, no change in stools, no constipation, no diarrhea/loose stools, no fecal incontinence, no constant urge to pass stools, no blood in stools and no melena Physical Exam Vital Signs (Past 24 Hours): Last Vital Signs Temp 36.6 C 09/10/18 07:25 Pulse 65 09/10/18 07:25 Resp 18 09/10/18 07:25 BP 127/77 09/10/18 07:25 Pulse Ox 96 09/10/18 07:25 Constitutional: well nourished and cooperative; no acute distress and + uncomfortable Respiratory: normal respiratory effort, lungs clear to auscultation Cardiovascular: RRR, no murmur, no edema Gastrointestinal (Abdomen): Inspection/Auscultation: normal bowel sounds Percussion/Palpation: + abdomen tender (worse in RUQ pain) and abdomen soft; no guarding and abdomen not rigid Skin: no rashes, warm and dry Results & Data Laboratory Results 09/10/18 09/10/18 09/10/18 Range/Units 07:55 05:49 05:49 WBC 8.59 (4.8-10.8) K/uL RBC 3.08 L (4.2-5.4) M/uL Hgb 8.3 L (12.0-16.0) g/dL Hct 26.5 L (37-47) % MCV 86.0 (80-100) fL MCH 26.9 (25-34) pg MCHC 31.3 L (32-36) g/dL RDW Std Deviation 57.1 H (36.4-46.3) fL RDW Coeff of Rusty 18.3 H (11.5-14.5) % Plt Count 218 (130-400) K/uL MPV 10.0 (7.4-10.4) fL Immature Gran % (Auto) 0.3 % Neut % (Auto) 72.5 % Lymph % (Auto) 18.5 % [place] % (Auto) 6.9 % Eos % (Auto) 1.6 % Baso % (Auto) 0.2 % Immature Gran # (Auto) 0.03 H (0.00-0.02) K/uL Neut # (Auto) 6.22 (1.4-6.5) K/uL Lymph # (Auto) 1.59 (1.2-3.4) K/uL [place] # (Auto) 0.59 (0.11-0.59) K/uL Eos # (Auto) 0.14 (0-0.5) K/uL Baso # (Auto) 0.02 (0-0.2) K/uL Sodium 135 L (136-145) mmol/L Potassium 4.3 (3.5-5.1) mmol/L Chloride 105 (98-107) mmol/L Carbon Dioxide 25 (21-32) mmol/L Anion Gap 5.0 (3-11) BUN 20 H (7-18) mg/dl Creatinine 0.92 (0.6-1.2) mg/dl Est Cr Clr Drug Dosing 69.3 ml/min Est GFR ( Amer) 72.6 Est GFR (Non-Af Amer) 62.6 BUN/Creatinine Ratio 21.9 H (10-20) Glucose 162 H (70-99) mg/dl POC Glucose 172 H (70-99) Calcium 8.5 (8.5-10.1) mg/dl POC Urine pH POC Urine Protein POC Ur Glucose (UA) POC Urine Ketones POC Urine Blood POC Urine Nitrite POC Urine Bilirubin POC Urine Urobilinogen POC U Leukocyte Esteras Stool Occult Bld Scrn (Negative) 09/09/18 09/09/18 09/09/18 Range/Units 20:12 17:01 13:27 WBC (4.8-10.8) K/uL RBC (4.2-5.4) M/uL Hgb (12.0-16.0) g/dL Hct (37-47) % MCV (80-100) fL MCH (25-34) pg MCHC (32-36) g/dL RDW Std Deviation (36.4-46.3) fL RDW Coeff of Rusty (11.5-14.5) % Plt Count (130-400) K/uL MPV (7.4-10.4) fL Immature Gran % (Auto) % Neut % (Auto) % Lymph % (Auto) % [place] % (Auto) % Eos % (Auto) % Baso % (Auto) % Immature Gran # (Auto) (0.00-0.02) K/uL Neut # (Auto) (1.4-6.5) K/uL Lymph # (Auto) (1.2-3.4) K/uL [place] # (Auto) (0.11-0.59) K/uL Eos # (Auto) (0-0.5) K/uL Baso # (Auto) (0-0.2) K/uL Sodium (136-145) mmol/L Potassium (3.5-5.1) mmol/L Chloride (98-107) mmol/L Carbon Dioxide (21-32) mmol/L Anion Gap (3-11) BUN (7-18) mg/dl Creatinine (0.6-1.2) mg/dl Est Cr Clr Drug Dosing ml/min Est GFR ( Amer) Est GFR (Non-Af Amer) BUN/Creatinine Ratio (10-20) Glucose (70-99) mg/dl POC Glucose 301 H 214 H (70-99) Calcium (8.5-10.1) mg/dl POC Urine pH POC Urine Protein POC Ur Glucose (UA) POC Urine Ketones POC Urine Blood POC Urine Nitrite POC Urine Bilirubin POC Urine Urobilinogen POC U Leukocyte Esteras Stool Occult Bld Scrn Negative (Negative) 09/09/18 09/08/18 Range/Units 11:08 18:13 WBC (4.8-10.8) K/uL RBC (4.2-5.4) M/uL Hgb (12.0-16.0) g/dL Hct (37-47) % MCV (80-100) fL MCH (25-34) pg MCHC (32-36) g/dL RDW Std Deviation (36.4-46.3) fL RDW Coeff of Rusty (11.5-14.5) % Plt Count (130-400) K/uL MPV (7.4-10.4) fL Immature Gran % (Auto) % Neut % (Auto) % Lymph % (Auto) % [place] % (Auto) % Eos % (Auto) % Baso % (Auto) % Immature Gran # (Auto) (0.00-0.02) K/uL Neut # (Auto) (1.4-6.5) K/uL Lymph # (Auto) (1.2-3.4) K/uL [place] # (Auto) (0.11-0.59) K/uL Eos # (Auto) (0-0.5) K/uL Baso # (Auto) (0-0.2) K/uL Sodium (136-145) mmol/L Potassium (3.5-5.1) mmol/L Chloride (98-107) mmol/L Carbon Dioxide (21-32) mmol/L Anion Gap (3-11) BUN (7-18) mg/dl Creatinine (0.6-1.2) mg/dl Est Cr Clr Drug Dosing ml/min Est GFR ( Amer) Est GFR (Non-Af Amer) BUN/Creatinine Ratio (10-20) Glucose (70-99) mg/dl POC Glucose 230 H (70-99) Calcium (8.5-10.1) mg/dl POC Urine pH Cancelled POC Urine Protein Cancelled POC Ur Glucose (UA) Cancelled POC Urine Ketones Cancelled POC Urine Blood Cancelled POC Urine Nitrite Cancelled POC Urine Bilirubin Cancelled POC Urine Urobilinogen Cancelled POC U Leukocyte Esteras Cancelled Stool Occult Bld Scrn (Negative) (1) Abdominal pain Abdominal location: right upper quadrant Qualified Code(s): R10.11 - Right upper quadrant pain
[2018-09-10] MEDS ORDERED: PANTOprazole 80 MG in DEXTROSE 5% 100 ML IV ONE (11:45)
[2018-09-10] MEDS ORDERED: PANTOprazole 40 MG in DEXTROSE 5% 100 ML IV SCH (11:45)
--- NOTE | 2018-09-10 13:57 | Anesthesiology Consultation ---
Date of Service September 10, 2018 Assessment & Plan (1) Encounter for pre-operative examination: Chart Review Chart Review: Acceptable Risk for Surgery Consults Requested none ASA ASA3 Proposed Anesthesia Anesthesia Type: MAC Risk / Benefits Reviewed With: PT / POA / Parent / Guardian, Accepts Plan and Informed Consent Obtained NPO Date Last Intake of Fluids: 09/10/18 Time Last Intake of Fluids: 08:00 Date Last Intake of Solids: 09/10/18 Time Last Intake of Solids: 08:00 History Surgery Operation Date: 09/10/18 10:15 Proposed Procedures p Esophagogastroduodenoscopy Dr Maloney - Florina Maloney Height/Weight Height: 5 ft 8 in Weight: 99.9 kg Allergies Allergy/AdvReac Type Severity Reaction Status Date / Time adhesive Allergy Mild REDNESS Verified 05/02/18 06:43 cephalexin [From Keflex] Allergy Mild Unknown Verified 05/02/18 06:43 Medications Home Medications Medication Instructions Recorded Confirmed Last Taken albuterol sulfate [ProAir 2 puff INHALATION QID PRN 03/18/18 09/08/18 Unknown RespiClick] allopurinol 300 mg PO DAILY 03/18/18 09/08/18 09/08/18 07:00 atenolol 100 mg PO QAM 03/18/18 09/08/18 09/08/18 06:00 digoxin [Digox] 0.125 mg PO DAILY 03/18/18 09/08/18 Unknown fluticasone propion-salmeterol 1 puff INHALATION Q12H 03/18/18 09/08/18 09/08/18 08:00 [Advair Diskus] fluticasone propionate [Flonase 2 spray INTRANASAL DAILY 03/18/18 09/08/18 Unknown Allergy Relief] furosemide 40 mg PO BID 03/18/18 09/08/18 09/08/18 12:00 insulin glargine [Lantus U-100 40 unit SUBCUT BID 03/18/18 09/08/18 09/08/18 08:00 Insulin] isosorbide mononitrate 60 mg PO QAM 03/18/18 09/08/18 Unknown levothyroxine 125 mcg PO DAILY 03/18/18 09/08/18 09/08/18 07:00 liraglutide [Victoza 2-Trevor] 1.2 mg SUBCUT DAILY 03/18/18 09/08/18 09/07/18 lisinopril 20 mg PO DAILY 03/18/18 09/08/18 09/08/18 07:00 metformin 850 mg PO TID 03/18/18 09/08/18 09/08/18 12:00 montelukast 10 mg PO PM 03/18/18 09/08/18 09/08/18 07:00 potassium citrate 20 meq PO BID 03/18/18 09/08/18 09/08/18 07:00 pravastatin 40 mg PO HS 03/18/18 09/08/18 09/07/18 warfarin 7.5 mg PO DAILY 03/18/18 09/08/18 09/07/18 atenolol 50 mg PO QPM 05/02/18 09/08/18 09/07/18 insulin lispro protamin-lispro 18 unit SUBCUT QAM 05/02/18 09/08/18 09/08/18 08:00 [Humalog Mix 75-25 KwikPen] ipratropium-albuterol 3 ml INHALATION QID PRN 05/02/18 09/08/18 09/08/18 17:00 azithromycin [Zithromax Z-Trevor] 1 - 2 tabs PO UD 09/08/18 09/08/18 Unknown ferrous sulfate 325 mg PO QPM 09/08/18 09/08/18 Unknown magnesium hydroxide [Milk of 30 ml PO UD PRN 09/08/18 09/08/18 Unknown Magnesia] rtivxgkw-vun-VY-lycopen-lutein 1 tab PO DAILY 09/08/18 09/08/18 09/08/18 07:00 [Centrum Silver] omega 8-rbl-tmq-fish oil [[place]-3] 1 cap PO BID 09/08/18 09/08/18 09/08/18 07:00 pedi multivitamin no.79-iron 1 tab PO QPM 09/08/18 09/08/18 Unknown [Flintstones with Iron] prednisone 10 mg PO UD PRN 09/08/18 09/08/18 Unknown triamcinolone acetonide 1 applic TOPICAL BID PRN 09/08/18 09/08/18 Unknown Active Medications Generic Name Dose Route Start Last Admin Trade Name Freq PRN Reason Stop Dose Admin Allopurinol 300 mg 09/09/18 09:00 09/10/18 09:29 Zyloprim PO 10/09/18 08:59 300 mg DAILY ANTIONETTE Administration Atenolol 50 mg 09/08/18 23:47 09/09/18 21:03 Tenormin PO 10/08/18 23:46 50 mg QPM ANTIONETTE Administration Atenolol 100 mg 09/09/18 09:00 09/10/18 09:28 Tenormin PO 10/09/18 08:59 100 mg QAM ANTIONETTE Administration Digoxin 0.125 mg 09/09/18 16:00 09/09/18 16:54 Lanoxin PO 10/09/18 15:59 0.125 mg DAILY@1600 ANTIONETTE Administration Ferrous Sulfate 325 mg 09/09/18 21:00 09/10/18 09:26 Feosol PO 10/09/18 20:59 325 mg BID ANTIONETTE Administration Fluticasone Propionate 2 sprays 09/09/18 09:00 09/10/18 09:26 Flonase MALATHI 10/09/18 08:59 2 sprays DAILY ANTIONETTE Administration Prochlorperazine 5 mg/ Syringe 5 mls @ 5 mls/min 09/08/18 21:54 09/10/18 08:48 IV 10/08/18 21:53 5 mls/min Q6H PRN Administration Nausea And Vomiting Aztreonam 2,000 mg/ Dextrose 110 mls @ 100 mls/hr 09/10/18 00:00 09/10/18 09:10 IV 09/20/18 00:00 Infused Q8H ANTIONETTE Infusion Protocol Pantoprazole Sodium 40 mg/ 100 mls @ 20 mls/hr 09/10/18 11:45 09/10/18 12:22 Dextrose IV 10/10/18 11:44 20 mls/hr Q5H ANTIONETTE Administration Insulin Aspart 0 units 09/09/18 21:00 09/10/18 11:53 Novolog Flexpen SC 10/09/18 20:59 5 units ACHS ANTIONETTE Administration Insulin Glargine 40 units 09/09/18 21:00 09/10/18 09:27 Lantus Solostar Pen SQ 10/09/18 20:59 40 units BID ANTIONETTE Administration Ipratropium [place] 0.5 mg 09/08/18 22:15 09/09/18 18:34 Atrovent 0.02% 0.5mg/2.5ml INH 10/08/18 22:14 0.5 mg Q4H PRN Administration sob Isosorbide Mononitrate 60 mg 09/09/18 09:00 09/10/18 09:27 Imdur Extended Rel PO 10/09/18 08:59 60 mg QAM ANTIONETTE Administration Lactulose 15 gm 09/09/18 11:08 09/09/18 13:48 Chronulac PO 10/09/18 11:07 15 gm Q6H PRN Administration Constipation Levalbuterol HCl 1.25 mg 09/08/18 22:15 09/09/18 18:34 Xopenex 1.25mg/0.5ml Neb INH 10/08/18 22:14 1.25 mg Q4H PRN Administration sob Levothyroxine Sodium 125 mcg 09/09/18 06:30 09/10/18 05:45 Synthroid PO 10/09/18 06:29 125 mcg DAILYBB ANTIONETTE Administration Lisinopril 20 mg 09/09/18 09:00 09/10/18 09:29 Zestril PO 10/09/18 08:59 20 mg DAILY ANTIONETTE Administration Montelukast Sodium 10 mg 09/08/18 23:47 09/09/18 21:05 Singulair PO 10/08/18 23:46 10 mg PM ANTIONETTE Administration Morphine Sulfate 2 mg 09/08/18 21:54 09/10/18 08:40 Morphine Sulfate IV 09/22/18 21:53 2 mg Q4H PRN Administration Pain Multivitamins/Minerals 1 tab 09/09/18 09:00 09/10/18 09:28 Multivitamin W/ Minerals Tab PO 10/09/18 08:59 1 tab DAILY ANTIONETTE Administration Polyethylene Glycol 17 gm 09/08/18 21:59 09/09/18 08:38 Miralax Powder Packet PO 10/08/18 21:58 17 gm DAILY PRN Administration Constipation Potassium Citrate 20 meq 09/09/18 21:00 09/10/18 09:29 Urocit-K PO 10/09/18 20:59 20 meq BID ANTIONETTE Administration Pravastatin Sodium 40 mg 09/09/18 21:00 09/09/18 21:05 Pravachol PO 10/09/18 20:59 40 mg HS ANTIONETTE Administration Fluticasone/Salmeterol 1 puffs 09/08/18 23:47 09/10/18 09:24 Advair Diskus 100/50 INH 10/08/18 23:46 1 puffs BID ANTIONETTE Administration Senna/Docusate Sodium 1 tab 09/08/18 23:45 09/10/18 09:28 Senokot S PO 10/08/18 23:44 1 tab BID ANTIONETTE Administration Tramadol HCl 25 mg 09/08/18 21:54 09/10/18 02:05 Ultram PO 10/08/18 21:53 25 mg Q4H PRN Administration Pain Warfarin Sodium 5 mg 09/09/18 16:00 09/10/18 09:25 Coumadin PO 10/09/18 15:59 5 mg DAILY ANTIONETTE Administration Past Medical History Medical History Atrial fibrillation CHF (congestive heart failure) Diabetes Hypertension Pneumonia Past Surgical History Surgical History History of cholecystectomy Past Anesthesia History No Hx of Anesthesia Complications and No Family Hx of Anesthesia Complications History of PONV No Motion Sickness Screening History of Motion Sickness: No Social History Smoking Status: Unknown if ever smoked Do You Dip or Chew Tobacco: No Hx Alcohol Use: No Hx Substance Use: No substance use type: does not use Exercise / Class Metabolic Activity III < 4 Walking/Shop/Light housework Physical Exam Vital Signs Last Vital Signs Temp 97.9 F 09/10/18 07:25 Pulse 65 09/10/18 07:25 Resp 18 09/10/18 07:25 BP 127/77 09/10/18 07:25 Pulse Ox 96 09/10/18 07:25 ENMT Mouth: no dentition abnormality Thyromental Distance: > or= 3.5 Finger Breadths Mallampati Class: II Neck normal visual inspection Respiratory normal respiratory effort Auscultation: lungs clear to auscultation bilaterally Cardiovascular Rate/Rhythm: regular rate and regular rhythm Testing Electrocardiogram Date: 09/08/18 Atrial fibrillation Low voltage QRS Cannot rule out Anterior infarct (cited on or before 06-JAN-2017) Nonspecific T wave abnormality When compared with ECG of 02-MAY-2018 06:33, No significant change Chest X-Ray Date: 09/08/18 1. Enlarged cardiac silhouette with near complete resolution of the previously described pulmonary vascular congestion. 2. No evidence of focal pulmonary consolidation 3. No evidence of free intraperitoneal air Laboratory Results 09/10/18 05:49 09/10/18 05:49 Blood Type A Negative 09/08/18 21:42 Antibody Screen NEGATIVE 09/08/18 21:42 PT 26.6 Seconds (9.0-12.0) H 09/09/18 06:20 INR 2.8 (0.9-1.1) H 09/09/18 06:20 APTT 45.3 Seconds (21.0-31.0) H* 09/08/18 18:41 Hemoglobin A1c 6.9 % (4.5-5.6) H 09/08/18 18:41 Urine Color Yellow 09/08/18 18:41 Urine Appearance Cloudy (Clear) H 09/08/18 18:41 Urine pH 7.5 (4.5-7.5) 09/08/18 18:41 Ur Specific Paul 1.014 (1.000-1.030) 09/08/18 18:41 Urine Protein Trace (Negative) H 09/08/18 18:41 Urine Glucose (UA) Negative (Negative) 09/08/18 18:41 Urine Ketones Negative (Negative) 09/08/18 18:41 Urine Nitrite Negative (Negative) 09/08/18 18:41 Ur Leukocyte Esterase 3+ (Negative) H 09/08/18 18:41 Urine WBC (Auto) >30 /hpf (0-5) H 09/08/18 18:41 Urine RBC (Auto) 0-4 /hpf (0-4) 09/08/18 18:41 U Hyaline Cast (Auto) 1-5 /lpf (0-5) 09/08/18 18:41 U Epithel Cells (Auto) 5-10 /lpf (0-5) H 09/08/18 18:41 Urine Bacteria (Auto) 2+ (Negative) H 09/08/18 18:41 09/08/18 18:41 Urine Culture - Final Urine,Clean Catch Serratia marcescens 09/10/18 09/10/18 11:32 07:55 POC Glucose 291 H 172 H
[2018-09-10] MEDS ORDERED: PROPOFOL IV EMULSION 10 MG/ML 20 ML VIAL IV ONE (14:06)
[2018-09-10] MEDS ORDERED: LIDOCAINE HCL 2% 2 ML VIAL/AMP(20MG/ML) INFIL ONE (14:06)
--- NOTE | 2018-09-10 14:40 | GI REPORT ---
Patient Name: Chelsea English Procedure Date: 09/10/2018 2:29 PM Date of : 1945 Admit Type: Inpatient Age: 73 Gender: Female Attending MD: Florina Maloney DO Procedure: Upper GI endoscopy Providers: Florina Maloney DO Referring MD: Kellie Ray Indications: Melena Medicines: Propofol per Anesthesia Complications: No immediate complications. Estimated blood loss: None. Estimated Blood Loss: Estimated blood loss: none. Procedure: Pre-Anesthesia Assessment: - Prior to the procedure, a History and Physical was performed, and patient medications, allergies and sensitivities were reviewed. The patient's tolerance of previous anesthesia was reviewed. - The risks and benefits of the procedure and the sedation options and risks were discussed with the patient. All questions were answered and informed consent was obtained. - Patient identification and proposed procedure were verified prior to the procedure by the physician and the nurse. The procedure was verified in the pre-procedure area in the procedure room. - Mental Status Examination: alert and oriented. Airway Examination: normal oropharyngeal airway and neck mobility. Respiratory Examination: clear to auscultation. CV Examination: normal. Abdominal Examination: bowel sounds present, abdomen soft and non-tender, no masses or organomegaly noted. - ASA Grade Assessment: III - A patient with severe systemic disease. After obtaining informed consent, the endoscope was passed under direct vision. Throughout the procedure, the patient's blood pressure, pulse, and oxygen saturations were monitored continuously. The Endoscope was introduced through the mouth, and advanced to the second part of duodenum. The upper GI endoscopy was accomplished without difficulty. The patient tolerated the procedure well. Findings: The esophagus was normal. The stomach was normal. The examined duodenum was normal. Impression: - Normal esophagus. - Normal stomach. - Normal examined duodenum. - No specimens collected. Recommendation: - Resume diet. - Once daily oral PPI. - Outpatient colonoscopy. - Please call with questions. - Return patient to [facility] for ongoing care. Nisha Nair DO 09/10/2018 2:39:44 PM This report has been signed electronically. Note Initiated On: 09/10/2018 2:29 PM Number of Addenda: 0 I attest to the content of the Intraoperative Record and orders documented therein, exceptions below {[id number]}
--- NOTE | 2018-09-10 14:46 | Anesthesiology Progress Note ---
Date of Service September 10, 2018 Anesthesia Post Procedure Vital Signs Vital Signs: Temp Pulse Pulse Resp BP BP Pulse Ox 09/10/18 07:25 97.9 F 65 18 127/77 96 09/09/18 23:00 99.5 F 72 18 126/72 95 09/09/18 18:36 87 18 98 09/09/18 16:54 75 09/09/18 15:37 98.6 F 78 18 122/62 97 Pain Intensity Right Abdomen: Pain Intensity: 2 Notes Mental Status: alert / awake / arousable and participated in evaluation Patient Amnestic to Procedure: Yes Nausea / Vomiting: adequately controlled Pain: adequately controlled Airway Patency, RR, SpO2: stable & adequate BP & HR: stable & adequate Hydration State: stable & adequate Anesthetic Complications: no major complications apparent and Pt Satisfied with anesthetic care
[2018-09-10] MEDS: DIGOXIN 0.125 MG TAB PO SCH (15:47)
[2018-09-10] MEDS: LEVALBUTEROL 1.25MG/0.5ML NEB INH PRN (16:24)
[2018-09-10] MEDS: IPRATROPIUM BROMIDE NEB SOLN 0.02% 2.5 ML VIAL INH PRN (16:24)
--- NOTE | 2018-09-10 17:09 | Hospitalist Progress Note ---
Date of Service September 10, 2018 Assessment & Plan (1) Abdominal pain: Differential include peptic ulcer disease, nonspecific colitis, secondary to constipation or other colonic pathology CAT scan abdomen pelvis contrast: No signs of obstruction, diverticulitis Laxatives with Senokot-S started, will add as needed lactulose Bowel has been moving Abdominal pain persists We will ask for GI evaluation-appreciate input and recommendation EGD today-negative for any ulcer and the bleeding Will DC Protonix drip and start Protonix 40 mg daily We will have outpatient colonoscopy as per GI Iron deficiency anemia Rule out GI bleed in the setting of Coumadin use Hemoglobin 12 at baseline, on admission 8.8 Iron level 24 already on iron once a day Coumadin on hold today Asymptomatic pyuria, no sepsis Contaminated specimen Denies urinary symptoms, afebrile Urine culture grew Serratia marcescens, pansensitive We will change antibiotic accordingly A. fib on Coumadin INR admission 3.5 INR today 2.8 on 09/09 hypertension, slightly elevated secondary discomfort Monitor DM 2 insulin requiring, well controlled as of recent outpatient hemoglobin A1c of 6.9 from November 2017 A1c remains at 6.9 asthma, past tobacco abuse No overt wheezing noted on clinical exam. DVT prophylaxis. Coumadin INR goal between 2 and 3 Full code Disposition Lives at home with family Anticipate discharge to home medically stable disposition Subjective 09/10 Patient was seen and examined the medical floor He is 73-year-old female with significant past medical history of atrial fibrillation on Coumadin and aspirin, hypertension, hyperlipidemia, type 2 diabetes, asthma and chronic anemia was admitted with right-sided abdominal pain without nausea and/or vomiting. Noted to have dark stool with negative CT of the abdomen Has been complaining of pain in the abdomen instilled this morning Physical Exam Vital Signs (Past 24 Hours): Last Vital Signs Temp 36.7 C 09/10/18 15:35 Pulse 74 09/10/18 16:26 Resp 18 09/10/18 16:26 BP 130/69 09/10/18 15:35 Pulse Ox 96 09/10/18 16:26 Physical Exam: Moderate distress at rest with right upper quadrant pain Constitutional: WD/WN, vitals as above Eyes: PERRL, conjunctivae normal, anicteric sclerae ENMT: external ear and nose normal, oropharynx normal Neck: trachea midline, no thyromegaly Respiratory: normal respiratory effort Auscultation: lungs clear to auscultation bilaterally Cardiovascular: Rate/Rhythm: regular rate and regular rhythm Heart Sounds: normal S1 and normal S2 Gastrointestinal (Abdomen): Inspection/Auscultation: abdomen normal to inspection, + abdomen distended (Mildly distended) and normal bowel sounds Percussion/Palpation: + abdomen tender (Tender right upper quadrant) and abdomen soft Neurologic: PERRL, EOMI, accommodation nl, no face palsy, no dysarthria Results & Data Laboratory Results Short CBC 09/10/18 Range/Units 05:49 WBC 8.59 (4.8-10.8) K/uL Hgb 8.3 L (12.0-16.0) g/dL Hct 26.5 L (37-47) % Plt Count 218 (130-400) K/uL BMP 09/10/18 05:49 Sodium 135 L Potassium 4.3 Chloride 105 Carbon Dioxide 25 BUN 20 H Creatinine 0.92 Glucose 162 H Calcium 8.5 Medications Administered Current Inpatient Medications Acetaminophen (Tylenol) 650 mg PO Q4H PRN PRN Reason: pain/fever Stop: 10/08/18 21:53 Allopurinol (Zyloprim) 300 mg PO DAILY ANTIONETTE Stop: 10/09/18 08:59 Last Admin: 09/10/18 09:29 Dose: 300 mg Documented by: Atenolol (Tenormin) 50 mg PO QPM ANTIONETTE Stop: 10/08/18 23:46 Last Admin: 09/09/18 21:03 Dose: 50 mg Documented by: Atenolol (Tenormin) 100 mg PO QAM ANTIONETTE Stop: 10/09/18 08:59 Last Admin: 09/10/18 09:28 Dose: 100 mg Documented by: Aztreonam (Aztreonam Consult Active) 1 ea N/A UD PRN PRN Reason: Consult Stop: 10/09/18 23:40 Dextrose (Dextrose 50%) 25 - 50 ml IV UD PRN; Protocol PRN Reason: Hypoglycemia Protocol Stop: 10/08/18 21:58 Digoxin (Lanoxin) 0.125 mg PO DAILY@1600 ANTIONETTE Stop: 10/09/18 15:59 Last Admin: 09/10/18 15:47 Dose: 0.125 mg Documented by: Ferrous Sulfate (Feosol) 325 mg PO BID ANTIONETTE Stop: 10/09/18 20:59 Last Admin: 09/10/18 09:26 Dose: 325 mg Documented by: Fluticasone Propionate (Flonase) 2 sprays MALATHI DAILY [facility] Stop: 10/09/18 08:59 Last Admin: 09/10/18 09:26 Dose: 2 sprays Documented by: Glucagon (Glucagen) 1 mg SQ UD PRN; Protocol PRN Reason: Hypoglycemia Protocol Stop: 10/08/18 21:58 Glucose (Glucose 40%) 15 - 30 gm PO UD PRN; Protocol PRN Reason: Hypoglycemia Protocol Stop: 10/08/18 21:58 Glucose (Dex4 Glucose) 4 - 8 tabs PO UD PRN; Protocol PRN Reason: Hypoglycemia Protocol Stop: 10/08/18 21:58 Prochlorperazine 5 mg/ Syringe 5 mls @ 5 mls/min IV Q6H PRN PRN Reason: Nausea And Vomiting Stop: 10/08/18 21:53 Last Admin: 09/10/18 08:48 Dose: 5 mls/min Documented by: Aztreonam 2,000 mg/ Dextrose 110 mls @ 100 mls/hr IV Q8H [facility]; Protocol Stop: 09/20/18 00:00 Last Infusion: 09/10/18 17:10 Dose: Infused Documented by: Insulin Aspart (Novolog Flexpen) 0 units SC ACHS [facility] Stop: 10/09/18 20:59 Last Admin: 09/10/18 11:53 Dose: 5 units Documented by: Insulin Glargine (Lantus Solostar Pen) 40 units SQ BID [facility] Stop: 10/09/18 20:59 Last Admin: 09/10/18 09:27 Dose: 40 units Documented by: Ipratropium [place] (Atrovent 0.02% 0.5mg/2.5ml) 0.5 mg INH Q4H PRN PRN Reason: sob Stop: 10/08/18 22:14 Last Admin: 09/10/18 16:24 Dose: 0.5 mg Documented by: Isosorbide Mononitrate (Imdur Extended Rel) 60 mg PO QAM [facility] Stop: 10/09/18 08:59 Last Admin: 09/10/18 09:27 Dose: 60 mg Documented by: Lactulose (Chronulac) 15 gm PO Q6H PRN PRN Reason: Constipation Stop: 10/09/18 11:07 Last Admin: 09/09/18 13:48 Dose: 15 gm Documented by: Levalbuterol HCl (Xopenex 1.25mg/0.5ml Neb) 1.25 mg INH Q4H PRN PRN Reason: sob Stop: 10/08/18 22:14 Last Admin: 09/10/18 16:24 Dose: 1.25 mg Documented by: Levothyroxine Sodium (Synthroid) 125 mcg PO DAILYBB [facility] Stop: 10/09/18 06:29 Last Admin: 09/10/18 05:45 Dose: 125 mcg Documented by: Lisinopril (Zestril) 20 mg PO DAILY ANTIONETTE Stop: 10/09/18 08:59 Last Admin: 09/10/18 09:29 Dose: 20 mg Documented by: Miscellaneous (Carbohydrates For Hypoglycemia) 15 - 30 gm PO UD PRN PRN Reason: Hypoglycemia Treatment Stop: 10/08/18 21:58 Montelukast Sodium (Singulair) 10 mg PO PM [facility] Stop: 10/08/18 23:46 Last Admin: 09/09/18 21:05 Dose: 10 mg Documented by: Morphine Sulfate (Morphine Sulfate) 2 mg IV Q4H PRN PRN Reason: Pain Stop: 09/22/18 21:53 Last Admin: 09/10/18 08:40 Dose: 2 mg Documented by: Multivitamins/Minerals (Multivitamin W/ Minerals Tab) 1 tab PO DAILY ANTIONETTE Stop: 10/09/18 08:59 Last Admin: 09/10/18 09:28 Dose: 1 tab Documented by: Pantoprazole Sodium (Protonix) 40 mg PO QAM [facility] Stop: 10/11/18 08:59 Polyethylene Glycol (Miralax Powder Packet) 17 gm PO DAILY PRN PRN Reason: Constipation Stop: 10/08/18 21:58 Last Admin: 09/09/18 08:38 Dose: 17 gm Documented by: Potassium Citrate (Urocit-K) 20 meq PO BID ANTIONETTE Stop: 10/09/18 20:59 Last Admin: 09/10/18 09:29 Dose: 20 meq Documented by: Pravastatin Sodium (Pravachol) 40 mg PO HS [facility] Stop: 10/09/18 20:59 Last Admin: 09/09/18 21:05 Dose: 40 mg Documented by: Fluticasone/Salmeterol (Advair Diskus 100/50) 1 puffs INH BID [facility] Stop: 10/08/18 23:46 Last Admin: 09/10/18 09:24 Dose: 1 puffs Documented by: Senna/Docusate Sodium (Senokot S) 1 tab PO BID [facility] Stop: 10/08/18 23:44 Last Admin: 09/10/18 09:28 Dose: 1 tab Documented by: Tramadol HCl (Ultram) 25 mg PO Q4H PRN PRN Reason: Pain Stop: 10/08/18 21:53 Last Admin: 09/10/18 02:05 Dose: 25 mg Documented by: Warfarin Sodium (Coumadin) 5 mg PO DAILY [facility] Stop: 10/09/18 15:59 Last Admin: 09/10/18 09:25 Dose: 5 mg Documented by: (1) Abdominal pain Abdominal location: right upper quadrant Qualified Code(s): R10.11 - Right upper quadrant pain
[2018-09-10] MEDS: MONTELUKAST SODIUM 10 MG TABLET PO SCH (20:28)
[2018-09-10] MEDS: PRAVASTATIN SOD 40 MG TAB PO SCH (20:29)
[2018-09-11] MEDS: AZTREONAM 2,000 MG in DEXTROSE 5% 100 ML IV SCH ×2 (00:32→08:26)
[2018-09-11] MEDS: MoRPHine SULFATE 4 MG/ML 1 ML CARP\\VIAL IV PRN (00:43)
[2018-09-11] MEDS: LEVOTHYROXINE SODIUM 125 MCG TABLET PO SCH (06:27)
[2018-09-11 06:36] LABS: Basophils # (auto) 0.02 K/uL (0-0.2); Basophils % (auto) 0.2 %; Eosinophils % (auto) 2.4 %; Hematocrit (blood only) 26.2 % (37-47); Hemoglobin 8.2 g/dL (12.0-16.0); Immature Granulocytes # (auto) 0.02 K/uL (0.00-0.02); Immature Granulocytes % (auto) 0.2 %; Lymphocytes # (auto) 0.92 K/uL (1.2-3.4); Lymphocytes % (auto) 11.3 %; Mean Corpuscular Hgb Conc 31.3 g/dL (32-36); Mean Corpuscular Volume 86.2 fL (80-100); Mean Platelet Volume 10.1 fL (7.4-10.4); Monocytes # (auto) 0.76 K/uL (0.11-0.59); Monocytes % (auto) 9.3 %; Neutrophils # (auto) 6.25 K/uL (1.4-6.5); Neutrophils % (auto) 76.6 %; Platelet Count 213 K/uL (130-400); RDW Coefficient of Variation 18.4 % (11.5-14.5); RDW Standard Deviation 57.7 fL (36.4-46.3); Red Blood Count 3.04 M/uL (4.2-5.4); White Blood Count 8.17 K/uL (4.8-10.8)
[2018-09-11 06:43] LABS: INR 2.6 (0.9-1.1); Prothrombin Time 25.2 Seconds (9.0-12.0)
[2018-09-11 07:02] LABS: BUN Creatinine Ratio 21.3 (10-20); Calcium 8.3 mg/dl (8.5-10.1); Creatinine Clr Calc Pharmacy 57.5 ml/min; Est GFR (African American) 57.9; Est GFR (Non-African American) 49.9; Potassium 4.3 mmol/L (3.5-5.1)
[2018-09-11] MEDS: CEROVITE ADV FORMULA TAB PO SCH (08:29)
[2018-09-11] MEDS: ATENOLOL 50 MG TABLET PO SCH (08:29)
[2018-09-11] MEDS: FLUTICASONE/SALMETEROL 100/50 (ADVAIR) 14 PUFF/1 INHALER INH SCH (08:29)
[2018-09-11] MEDS: ALLOPURINOL 300 MG TAB PO SCH (08:29)
[2018-09-11] MEDS: ISOSORBIDE MONO EXTENDED REL 60 MG TABCR PO SCH (08:29)
[2018-09-11] MEDS: DOCUSATE SODIUM/SENNA 50/8.6MG TAB PO SCH (08:30)
[2018-09-11] MEDS: FERROUS SULFATE 325 MG TAB PO SCH (08:30)
[2018-09-11] MEDS: POTASSIUM CITRATE 10 MEQ TAB PO SCH (08:31)
[2018-09-11] MEDS: LISINOPRIL 20 MG TAB PO SCH (08:31)
[2018-09-11] MEDS: INSULIN ASPART 100 UNITS/ML 3 ML PEN SC SCH ×2 (08:33→12:49)
[2018-09-11] MEDS: INSULIN GLARGINE SOLOSTAR 100 UNITS/ML 3 ML PEN SQ SCH (08:34)
[2018-09-11] MEDS: FLUTICASONE PROPIONATE NA SPR 16 GM BTL NAE SCH (08:34)
[2018-09-11] MEDS ORDERED: SODIUM CHLORIDE 0.65% NA SOLN 45 ML (OCEAN) ONE (08:39)
[2018-09-11] MEDS ORDERED: Nursing to Pharmacy Communication ONE (08:56)
[2018-09-11] MEDS ORDERED: NURSING DECISION MEDICATION ONE (08:56)
[2018-09-11] MEDS ORDERED: PANTOprazole 40 MG TAB PO SCH (09:00)
[2018-09-11] MEDS ORDERED: SODIUM CHLORIDE 0.65% NA SOLN 45 ML (OCEAN) PRN (09:01)
[2018-09-11] MEDS: WARFARIN SOD 5 MG TAB PO SCH (09:27)
[2018-09-11] MEDS: IPRATROPIUM BROMIDE NEB SOLN 0.02% 2.5 ML VIAL INH PRN (13:10)
[2018-09-11] MEDS: LEVALBUTEROL 1.25MG/0.5ML NEB INH PRN (13:10)
[2018-09-11] MEDS ORDERED: FUROSEMIDE 40 MG TAB PO ONE (14:45)
--- NOTE | 2018-09-11 14:45 | Hospitalist Progress Note ---
Date of Service September 11, 2018 Assessment & Plan (1) Abdominal pain: CAT scan abdomen pelvis contrast: No signs of obstruction, diverticulitis GI consulted s/p EGD: unrevealing patient given laxatives, (+) BM- no melena, hematochezia R sided abdominal pain improevd GI recommends outpatient Colonoscopy- please facilitate soon PPI daily Hg remained stable around 8 will need repeat CBC on ff up with PCP in 3-5 days, and Hg needs to be monitored closely Iron deficiency anemia Hemoglobin 12 at baseline, on admission 8.8 Iron level 24 already on iron once a day, increased to BID may resume Coumadin as per GI will need Colonoscopy, and monitor CBC and INR closely UTI, Serratia Urine culture grew Serratia marcescens, pansensitive received Aztreonam IV complete 3 days of Levaquin PO as outpatient A. fib on Coumadin INR admission 3.5 INR 2.6 on discharge day reduced coumadin to 5mg po daily check INR thursday will inform coumadin Clinic Hypertension continue usual medications ff up as outpatient DM 2 insulin requiring, well controlled as of recent outpatient hemoglobin A1c of 6.9 from November 2017 A1c remains at 6.9 resume usual DM meds Asthma not in exacerbation d/c home ff up with PCP on 09/17 at 11am ff up with GI for Colonoscopy Subjective Seen resting in bedside chair, comfortable, not in distress Follow-up for abdominal pain States right-sided abdominal pain is much better, no nausea or vomiting, positive BM this morning, brown, nonbloody Denies chest pain shortness of breath dizziness headache weakness Denies urinary symptoms No other symptoms states she is ready and willing to be discharged today Physical Exam Vital Signs (Past 24 Hours): Last Vital Signs Temp 36.5 C 09/11/18 07:26 Pulse 80 09/11/18 13:12 Resp 16 09/11/18 13:12 BP 174/73 H 09/11/18 07:26 Pulse Ox 97 09/11/18 13:12 Physical Exam: General- oriented x 3, not in distress, speaks in sentences with no effort or accessory muscle use Eyes- anicteric Neck- no JVD Lungs- mild rales at the bases no wheezing good air entry bilaterally Heart- normal rate, regular rhythm; no murmurs Abdomen- normal bowel sounds, nondistended, soft, nontender Extremities- no pretibial edema, no calf tenderness Neuro- alert, oriented x 3; no gross focal neurologic deficits Skin- warm & dry (1) Abdominal pain Abdominal location: right upper quadrant Qualified Code(s): R10.11 - Right upper quadrant pain
--- NOTE | 2018-09-11 15:41 | Discharge Summary ---
Date of Service September 11, 2018 Admission HPI Per Admitting Provider History obtained from patient, family, and records. Medical history significant for A. fib on Coumadin, hypertension, hyperlipidemia, DM 2 insulin requiring, asthma, past tobacco abuse, chronic anemia (baseline hemoglobin of 11). Recent confinement 2013 for asthma exacerbation. Few days history of achy right-sided abdominal pain without nausea, emesis. Patient constipated. Last BM was yesterday. Noted to be dark. About 14 pound weight loss in the last few months, fair appetite. Denies dysuria symptoms. Shortness of breath, dry cough from usual asthma attack. Denies chest pain. Patient received IV Zosyn at the ER. 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 Admission Exam Per Admitting Provider Vital Signs (Past 24 Hours): Last Vital Signs Temp 37.2 C 09/08/18 17:55 Pulse 95 H 09/08/18 21:15 Resp 21 09/08/18 21:15 BP 164/90 H 09/08/18 21:13 Pulse Ox 94 09/08/18 21:15 Physical Exam: GENERAL: Slightly anxious, obese, no respiratory distress SKIN: pallor, warm HEENT: pale palpebral conjunctivae, no ptosis, dry buccal mucosa NECK : Supple, short neck, no tenderness CHEST : Decreased breath sounds, no tenderness HEART : Irregular , no obvious murmurs ABDOMEN: Some distention, right-sided tenderness Rectal exam: Intact sphincter, yellow stool, heme-negative EXTREMITIES : Chronic LE venous stasis, no tenderness, no other conspicuous deformities noted NEUROLOGIC : Coherent, no facial asymmetry, no other gross focality Principal Diagnosis ABDOMINAL PAIN, RIGHT SIDED; IRON DEFICIENCY ANEMIA Discharge Exam Vital Signs (Past 24 Hours): Last Vital Signs Temp 36.5 C 09/11/18 07:26 Pulse 80 09/11/18 13:12 Resp 16 09/11/18 13:12 BP 174/73 H 09/11/18 07:26 Pulse Ox 97 09/11/18 13:12 Physical Exam: General- oriented x 3, not in distress, speaks in sentences with no effort or accessory muscle use Eyes- anicteric Neck- no JVD Lungs- mild rales at the bases no wheezing good air entry bilaterally Heart- normal rate, regular rhythm; no murmurs Abdomen- normal bowel sounds, nondistended, soft, nontender Extremities- no pretibial edema, no calf tenderness Neuro- alert, oriented x 3; no gross focal neurologic deficits Skin- warm & dry Discharge Data Allergies Allergy/AdvReac Type Severity Reaction Status Date / Time adhesive Allergy Mild REDNESS Verified 05/02/18 06:43 cephalexin [From Keflex] Allergy Mild Unknown Verified 05/02/18 06:43 Consultations 09/10/18 09:41 Consult Gastroenterology Routine Procedures Performed Operation Date: 09/10/18 10:15 Actual Procedures p Esophagogastroduodenoscopy - Florina Maloney Findings: The esophagus was normal. The stomach was normal. The examined duodenum was normal. Impression: - Normal esophagus. - Normal stomach. - Normal examined duodenum. - No specimens collected. Recommendation: - Resume diet. - Once daily oral PPI. - Outpatient colonoscopy. - Please call with questions. - Return patient to [facility] for ongoing care. Florina Maloney D.O. Ordered Studies 09/08/18 18:13 CT abd pelvis IV con only Stat CLINICAL HISTORY: weight loss, constipation COMPARISON STUDY: 02/10/2011 TECHNIQUE: The patient was scanned in a dynamic helical fashion during intravenous administration of 93 cc of Optiray 320 A dose lowering technique was utilized adhering to the principles of ALARA. CT DOSE: 1035.98 mGycm FINDINGS: Lower chest: There are dependent atelectatic changes. The heart is enlarged. There is a tiny hiatal hernia. Liver: The liver is enlarged measuring 23 cm. No focal hepatic masses are visualized. Gallbladder: Surgically absent Spleen: Mildly enlarged measuring 12.9 cm Pancreas: Unremarkable. Adrenal glands: Unremarkable. Kidneys: There are innumerable bilateral renal cysts. There are bilateral nonobstructing renal calculi. Bowel: There are no transition zones indicate bowel obstruction. There is no evidence of acute diverticulitis. There are scattered colonic diverticula present. There is minor appendiceal dilatation, but there are no periappendiceal inflammatory changes to indicate acute appendicitis. This likely represents a normal variation. Peritoneum: There is no intraperitoneal free air or abdominal ascites. Vasculature: There is no evidence for abdominal aortic aneurysm. There are extensive vascular calcifications present. Adenopathy: None. Pelvic viscera: There are multiple calcified uterine fibroids. There is air wit hin the bladder, likely iatrogenic. Skeletal structures: No destructive osseous lesions are seen. IMPRESSION: 1. No evidence of bowel obstruction. No evidence of free air 2. Diverticulosis. No evidence of acute diverticulitis 3. Minimally dilated appendix, but no evidence of acute appendicitis. 4. Innumerable bilateral renal cysts 5. Bilateral nephrolithiasis 6. Mild hepatosplenomegaly 7. Air within the bladder likely iatrogenic 8. Uterine fibroids Electronically signed by: Liborio Fernandez M.D. 09/08/2018 8:16 PM Hospital Course (1) Abdominal pain: CAT scan abdomen pelvis contrast: No signs of obstruction, diverticulitis GI consulted s/p EGD: unrevealing patient given laxatives, (+) BM- no melena, hematochezia R sided abdominal pain improved GI recommends outpatient Colonoscopy- please facilitate soon PPI daily Hg remained stable around 8 will need repeat CBC on ff up with PCP in 3-5 days, and Hg needs to be monitored closely Iron deficiency anemia Hemoglobin 12 at baseline, on admission 8.8 Iron level 24 already on iron once a day, increased to BID may resume Coumadin as per GI will need Colonoscopy, and monitor CBC and INR closely UTI, Serratia Urine culture grew Serratia marcescens, pansensitive received Aztreonam IV complete 3 days of Levaquin PO as outpatient A. fib on Coumadin INR admission 3.5 INR 2.6 on discharge day reduced coumadin to 5mg po daily check INR thursday will inform coumadin Clinic Hypertension continue usual medications ff up as outpatient DM 2 insulin requiring well controlled as of recent outpatient hemoglobin A1c of 6.9 from November 2017 A1c remains at 6.9 resume usual DM meds Asthma not in exacerbation Bilateral Renal Cysts further eval as outpatient d/c home ff up with PCP on 09/17 at 11am ff up with GI for Colonoscopy Total Time Total Time Spent Total Time Spent (In Minutes): 35 minutes Discharge Plan Discharge Items Patient Disposition: Home - Self-Care Reason For Visit: ABD PAIN Discharge Diagnosis: ABDOMINAL PAIN Discharge Goals: Decrease discomfort, Diagnostic testing and Therapeutic intervention Activity: Resume your previous activity Activity Comment: Increase activity gradually as tolerated Lifting: Wait until after follow-up appointment Exercise/Sports: Wait until after follow-up appointment Driving/Machine Use Comment: No driving until evaluated by primary care physician Non-emergency contact: Primary Care Provider Call non-emergency contact if: you have any medication questions, your symptoms worsen, your pain is not controlled, your pain is worsening, your pain is unusual for you and you have a fever Follow-up/Referrals: Consuelo Arreguin DO [Primary Care Provider] - 09/17/18 11:00 am Diet: Carb Consistent or DM2 and Heart Healthy Addtl Provider Instructions: Please review new medication list and follow instructions carefully. Call primary care physician or return to the ER immediately if with worsening or recurrence of symptoms, black or bloody stools, Weakness, dizziness/lightheadedness, fever or chills, urinary symptoms. Blood work for INR on Thursday, September 13, 2018. The Coumadin clinic will advise you regarding your Coumadin dose. Follow-up with primary care physician as outlined above. Follow-up with [facility] gastroenterology clinic for a colonoscopy. Please call their office for appointment. Prescriptions: New warfarin [Coumadin] 5 mg Tablet 5 mg PO DAILY@1700 30 Days Qty: 30 RF: 0 ferrous sulfate 325 mg (65 mg iron) Tablet,Delayed Release (Dr/Ec) 325 mg PO BID 30 Days Qty: 60 RF: 0 ciprofloxacin HCl 250 mg tablet 250 mg PO Q12H 3 Days Qty: 6 RF: 0 omeprazole 20 mg capsule,delayed release(DR/EC) 20 mg PO DAILY Qty: 30 RF: 0 sennosides-docusate sodium [Senokot-S] 8.6-50 mg tablet 1 tab PO DAILY Qty: 30 RF: 2 Continued lisinopril 20 mg Tablet 20 mg PO DAILY RF: 0 potassium citrate 10 mEq (1,080 mg) Tablet Extended Release 20 meq PO BID RF: 0 allopurinol 300 mg Tablet 300 mg PO DAILY RF: 0 metformin 850 mg Tablet 850 mg PO TID RF: 0 montelukast 10 mg Tablet 10 mg PO PM RF: 0 pravastatin 40 mg Tablet 40 mg PO HS RF: 0 Victoza 2-Trevor 0.6 mg/0.1 mL (18 mg/3 mL) Pen Injector 1.2 mg SUBCUT DAILY RF: 0 levothyroxine 125 mcg Capsule 125 mcg PO DAILY RF: 0 ProAir RespiClick 90 mcg/actuation Aerosol Powdr Breath Activated 2 puff INHALATION QID PRN (Reason: Shortness Of Breath Or Wheezing) RF: 0 atenolol 50 mg Tablet 100 mg PO QAM RF: 0 furosemide 40 mg Tablet 40 mg PO BID RF: 0 isosorbide mononitrate 60 mg Tablet Extended Release 24 Hr 60 mg PO QAM RF: 0 Lantus U-100 Insulin 100 unit/mL Solution 40 unit SUBCUT BID RF: 0 digoxin [Digox] 125 mcg Tablet 0.125 mg PO DAILY RF: 0 fluticasone propionate [Flonase Allergy Relief] 50 mcg/actuation [place],Suspension 2 spray Intranasal DAILY RF: 0 atenolol 50 mg tablet 50 mg PO QPM RF: 0 ipratropium-albuterol 0.5 mg-3 mg(2.5 mg base)/3 mL solution for nebulization 3 ml Inhalation QID PRN (Reason: Shortness Of Breath Or Wheezing) RF: 0 Humalog Mix 75-25 KwikPen 100 unit/mL (75-25) insulin pen 18 unit subcut QAM RF: 0 Centrum Silver 0.4-300-250 mg-mcg-mcg Tablet 1 tab PO DAILY RF: 0 prednisone 10 mg Tablet 10 mg PO UD PRN (Reason: RESQUE PACK) RF: 0 triamcinolone acetonide 0.5 % Cream 1 applic TOPICAL BID PRN (Reason: AFFECTED AREA) RF: 0 magnesium hydroxide [Milk of Magnesia] 400 mg/5 mL Suspension 30 ml PO UD PRN (Reason: Constipation) RF: 0 [place] with Iron 18 mg iron Tablet,Chewable 1 tab PO QPM RF: 0 [place]-3 350 mg-235 mg- 90 mg-597 mg Capsule,Delayed Release(Dr/Ec) 1 cap PO BID RF: 0 Discontinued warfarin 7.5 mg Tablet 7.5 mg PO DAILY RF: 0 azithromycin [Zithromax Z-Trevor] 250 mg tablet 1 - 2 tabs PO UD RF: 0 ferrous sulfate 325 mg (65 mg iron) Tablet 325 mg PO QPM RF: 0 No Action fluticasone propion-salmeterol [Advair Diskus] 100-50 mcg/dose Blister With Device 1 puff INHALATION Q12H RF: 0 Stand-Alone Forms: [facility] Discharge Orders: Discharge Order (Routine); Ordered 09/11/18 Ordered By: Santiago Rebollar Admission Data Admit Date/Time: 09/09/18 11:14 Attending Provider: Santiago Rebollar Admit Provider: Moises Brooks Primary Care Provider: Consuelo Arreguin Other Providers: Santiago Rebollar ; Hever Han ; Angely Dorado ; Lisbet Fernandez ; Robin Pope ; Lila Dallas ; Kaylyn Naik ; Francine Hernandez ; Catalino Edwards ; Holger Amezcua ; Prerna Jimenez ; Florina Maloney ; Karen Cartwright ; Tiffany Nguyen ; Tabby Andersen ; Kellie Ray Service: Medical Other Interventions: Discharge Summary Assessment (RN) Last Done: 09/10/18 15:26
[2018-09-11] MEDS: DIGOXIN 0.125 MG TAB PO SCH (16:07)
[2018-09-11] MEDS ORDERED: WARFARIN SOD 5 MG TAB PO SCH (17:00)
== END 2018-09-11 16:20 | disposition home or self-care (01) | DRG 690 ==
LOC: ED 17:47 → 4E 17:47 → SUATTDRO 09-09 11:14

== ENCOUNTER 2019-10-03 12:11 | Inpatient (IN) ==
--- NOTE | 2019-10-03 12:32 | Emergency Department Note ---
History of Present Illness General Chief complaint: Abdominal Pain Stated complaint: CYST BURST ON RIGHT SIDE ABD AREA Time Seen by Provider: 10/03/19 12:21 Source: patient, RN notes reviewed and old records reviewed Mode of arrival: ambulatory Limitations: no limitations History of Present Illness Provider complaint: anemia Onset (ago): hour(s) 5 Pain Consistency: + intermittent Maximum Pain Intensity: 2 Current Pain Intensity: 2 Quality: + aching Relieved By: + immobilization Exacerbated By: + movement Associated symptoms: no chest pain, no fever/chills and no shortness of breath Treatments prior to arrival: none This is a 74-year-old female who presents emergency department complaining of anemia. The patient was sent in over concerns about a drop in her hemoglobin. She was recently at [place] for a kidney cyst. The patient herself has no complaints although she is slightly tender to her abdomen. She is scheduled for an outpatient MRI for the kidney cyst. Home Medications Home Medications Medication Instructions Recorded Confirmed Type Lantus U-100 Insulin 35 unit SUBCUT BID 03/18/18 10/03/19 History ProAir RespiClick 2 puff INHALATION BID PRN 03/18/18 10/03/19 History Victoza 2-Trevor 1.2 mg SUBCUT DAILY@1600 03/18/18 10/03/19 History allopurinol 300 mg PO QAM 03/18/18 10/03/19 History atenolol 50 mg PO QAM 03/18/18 10/03/19 History digoxin [Digox] 0.125 mg PO DAILY@1600 03/18/18 10/03/19 History fluticasone propionate [Flonase 2 spray INTRANASAL QAM 03/18/18 10/03/19 History Allergy Relief] furosemide 40 mg PO MOWEFR 03/18/18 10/03/19 History isosorbide mononitrate 60 mg PO QAM 03/18/18 10/03/19 History levothyroxine 125 mcg PO QAM 03/18/18 10/03/19 History metformin 850 mg PO QAM 03/18/18 10/03/19 History montelukast 10 mg PO HS 03/18/18 10/03/19 History potassium citrate 20 meq PO BID 03/18/18 10/03/19 History pravastatin 40 mg PO HS 03/18/18 10/03/19 History ipratropium-albuterol 3 ml INHALATION QID PRN 05/02/18 10/03/19 History Centrum Silver 1 tab PO QAM 09/08/18 10/03/19 History Flintstones with Iron 1 tab PO HS 09/08/18 10/03/19 History [place]-3 1 cap PO BID 09/08/18 10/03/19 History magnesium hydroxide [Milk of 30 ml PO UD PRN 09/08/18 10/03/19 History Magnesia] prednisone 10 mg PO UD PRN 09/08/18 10/03/19 History acetaminophen [Tylenol Extra 500 mg PO Q6H PRN 01/20/19 10/03/19 History Strength] ferrous sulfate 325 mg PO BID 01/20/19 10/03/19 History omeprazole 20 mg PO QAM 01/20/19 10/03/19 History sennosides-docusate sodium 2 tab PO QAM 01/20/19 10/03/19 History [Senokot-S] fluticasone propion-salmeterol 1 inh INHALATION BID 09/27/19 10/03/19 History [Wixela Inhub] Allergies Allergy/AdvReac Type Severity Reaction Status Date / Time adhesive Allergy Mild REDNESS Verified 09/27/19 11:31 cephalexin [From Keflex] Allergy Mild Unknown Verified 09/27/19 11:31 Past Med/Surg History Medical History Asthma Atrial fibrillation (Acute) CHF (congestive heart failure) CKD stage 3 secondary to diabetes Diabetes Diabetic gastroparesis HLD (hyperlipidemia) Hypertension Pneumonia Surgical History History of arthroscopic knee surgery History of cholecystectomy History of colonoscopy History of cystoscopy History of lumbar surgery Family History Father Diabetes Stroke Social History Preferred Language: Sinhala Communication Ability: Effective Railway 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 Required: No Beliefs That Will Affect Care: None marital status: Current Living Situation: Spouse current occupational status: retired Other Information That Helps Us Care for You: No Feels Safe at Home: Yes Safety Concerns: Feels Safe At This Time Smoking Status: Former smoker Second Hand Exposure: No ; Hx Alcohol Use: No Hx Substance Use: No Review of Systems A total of 10 systems reviewed and were otherwise negative Physical Exam Vital Signs Vital Signs - 24 hr 10/03/19 12:14 10/03/19 12:27 10/03/19 12:35 Temperature 36.7 C Temperature Source Oral Pulse Rate 116 H 118 H Pulse Rate from SpO2 Sensor Pulse Rhythm Regular Pulse Strength Respiratory Rate 16 29 H Respiratory Effort / Characteristics Non-Labored Respiratory Depth Normal Respiratory Pattern Regular Blood Pressure Blood Pressure Mean Blood Pressure Position Sitting Pulse Oximetry 98 98 Oxygen Delivery Method Room Air Room Air Sepsis Recent Fever Within 48 Hours No Sepsis Action Taken by Nursing No Action Required 10/03/19 13:00 10/03/19 13:05 10/03/19 13:06 Temperature Temperature Source Pulse Rate 104 H 109 H 95 H Pulse Rate from SpO2 Sensor 105 H 96 H Pulse Rhythm Pulse Strength Respiratory Rate 16 27 H 25 H Respiratory Effort / Characteristics Respiratory Depth Respiratory Pattern Blood Pressure 144/75 H Blood Pressure Mean 90 Blood Pressure Position Pulse Oximetry 99 98 Oxygen Delivery Method Room Air Room Air Sepsis Recent Fever Within 48 Hours Sepsis Action Taken by Nursing 10/03/19 13:38 10/03/19 13:39 10/03/19 14:00 Temperature Temperature Source Pulse Rate 105 H 117 H 117 H Pulse Rate from SpO2 Sensor 104 H 114 H 115 H Pulse Rhythm Pulse Strength Respiratory Rate 21 15 29 H Respiratory Effort / Characteristics Respiratory Depth Respiratory Pattern Blood Pressure 137/71 127/72 Blood Pressure Mean 95 97 Blood Pressure Position Pulse Oximetry 96 99 97 Oxygen Delivery Method Room Air Room Air Room Air Sepsis Recent Fever Within 48 Hours Sepsis Action Taken by Nursing 10/03/19 14:01 10/03/19 14:20 10/03/19 14:38 Temperature 36.6 C 37.0 C Temperature Source Oral Oral Pulse Rate 128 H 112 H 105 H Pulse Rate from SpO2 Sensor 124 H Pulse Rhythm Irregular Regular Pulse Strength Normal Normal Respiratory Rate 36 H 20 18 Respiratory Effort / Characteristics Respiratory Depth Respiratory Pattern Blood Pressure 149/81 H Blood Pressure Mean 103 Blood Pressure Position Lying Lying Pulse Oximetry 98 99 99 Oxygen Delivery Method Room Air Sepsis Recent Fever Within 48 Hours Sepsis Action Taken by Nursing 10/03/19 14:53 Temperature 36.7 C Temperature Source Oral Pulse Rate 102 H Pulse Rate from SpO2 Sensor Pulse Rhythm Irregular Pulse Strength Normal Respiratory Rate 18 Respiratory Effort / Characteristics Respiratory Depth Respiratory Pattern Blood Pressure 144/110 H Blood Pressure Mean 121 Blood Pressure Position Lying Pulse Oximetry 99 Oxygen Delivery Method Sepsis Recent Fever Within 48 Hours Sepsis Action Taken by Nursing GENERAL: Patient is a healthy-appearing well-nourished female HEAD: Normocephalic atraumatic EYES: Ocular movements intact pupils equal and react to light OROPHARYNX mucous membranes are moist no exudates present no erythema or edema present NECK: Supple no nuchal rigidity CHEST: Good equal expansion LUNGS: Clear and equal to auscultation CARDIAC: Normal S1 and S2 ABDOMEN: Soft nontender no guarding, firmness RUQ BACK: No CVA tenderness EXTREMITIES: No pain upon palpation normal muscle strength in all groups no clubbing cyanosis or edema NEURO: Patient is following commands is answering questions appropriately. Alert and oriented x3 Cranial Nerves 2-12 grossly intact Course Administered Medications Acetaminophen (Tylenol) 650 mg PO Q4H PRN PRN Reason: Pain or Fever Stop: 11/02/19 17:27 Last Admin: 10/04/19 00:46 Dose: 650 mg Documented by: [id number] Allopurinol (Zyloprim) 300 mg PO [facility] Stop: 11/03/19 08:59 Last Admin: 10/04/19 08:06 Dose: 300 mg Documented by: [id number] Alprazolam (Xanax) 0.5 mg PO Q6H PRN PRN Reason: Anxiety Stop: 11/03/19 17:45 Last Admin: 10/04/19 17:57 Dose: 0.5 mg Documented by: [id number] Atenolol (Tenormin) 50 mg PO [facility] Stop: 11/03/19 08:59 Last Admin: 10/04/19 08:07 Dose: 50 mg Documented by: [id number] Digoxin (Lanoxin) 0.125 mg PO DAILY@1600 [facility] Stop: 11/02/19 17:27 Last Admin: 10/04/19 16:36 Dose: 0.125 mg Documented by: [id number] Admin: 10/03/19 20:12 Dose: 0.125 mg Documented by: [id number] Ferrous Sulfate (Feosol) 325 mg PO BID [facility] Stop: 11/02/19 20:59 Last Admin: 10/04/19 11:48 Dose: 325 mg Documented by: [id number] Admin: 10/03/19 21:01 Dose: 325 mg Documented by: [id number] Fish Oil ([place]-3 (Purified Fish Oil)) 1 gm PO BID [facility] Stop: 11/02/19 20:59 Last Admin: 10/04/19 08:07 Dose: 1 gm Documented by: [id number] Admin: 10/03/19 21:00 Dose: 1 gm Documented by: [id number] Fluticasone Propionate (Flonase) 2 sprays NA QAM [facility] Stop: 11/03/19 08:59 Last Admin: 10/04/19 08:09 Dose: 2 sprays Documented by: [id number] Fluticasone/Vilanterol (Breo Ellipta 100/25 Mcg Inh) 1 puffs INH DAILY [facility] Stop: 11/03/19 08:59 Last Admin: 10/04/19 08:08 Dose: 1 puffs Documented by: [id number] Gadobutrol (Gadavist 65ml) 9.5 ml IV ONCE PRN PRN Reason: Interaction Checking Stop: 10/07/19 19:24 Last Admin: 10/03/19 19:25 Dose: 9.5 ml Documented by: [id number] Insulin Aspart (Novolog Flexpen) 0 units SC ACHS [facility] Stop: 11/02/19 17:27 Last Admin: 10/04/19 17:08 Dose: 5 units Documented by: [id number] Cosigned by: [id number] Admin: 10/04/19 11:48 Dose: 4 units Documented by: [id number] Cosigned by: [id number] Admin: 10/04/19 08:02 Dose: 7 units Documented by: [id number] Cosigned by: [id number] Admin: 10/03/19 21:25 Dose: 7 units Documented by: [id number] Cosigned by: [id number] Admin: 10/03/19 19:11 Dose: Not Given Documented by: [id number] Cosigned by: [id number] Insulin Glargine (Lantus Solostar Pen) 0 units SC BID [facility]; Protocol Stop: 11/02/19 20:59 Last Admin: 10/04/19 08:03 Dose: 12 units Documented by: [id number] Cosigned by: [id number] Admin: 10/03/19 21:25 Dose: 12 units Documented by: [id number] Cosigned by: [id number] Ioversol (Optiray 320 100ml) 94 ml IV ONCE PRN PRN Reason: Interaction Checking Stop: 10/07/19 13:35 Last Admin: 10/03/19 13:36 Dose: 94 ml Documented by: [id number] Isosorbide Mononitrate (Imdur Extended Rel) 60 mg PO QAM [facility] Stop: 11/03/19 08:59 Last Admin: 10/04/19 08:07 Dose: 60 mg Documented by: [id number] Levothyroxine Sodium (Synthroid) 125 mcg PO DAILYBB [facility] Stop: 11/03/19 06:29 Last Admin: 10/04/19 05:45 Dose: 125 mcg Documented by: [id number] Montelukast Sodium (Singulair) 10 mg PO HS [facility] Stop: 11/02/19 20:59 Last Admin: 10/03/19 21:01 Dose: 10 mg Documented by: [id number] Multivitamins/Minerals (Multivitamin W/ Minerals Tab) 1 tab PO QA [facility] Stop: 11/03/19 08:59 Last Admin: 10/04/19 08:07 Dose: 1 tab Documented by: [id number] Nitrofurantoin Macrocrystals (Macrobid) 100 mg PO BID [facility] Stop: 10/08/19 20:59 Last Admin: 10/04/19 08:06 Dose: 100 mg Documented by: [id number] Admin: 10/03/19 21:01 Dose: 100 mg Documented by: [id number] Pantoprazole Sodium (Protonix) 40 mg PO QA [facility] Stop: 11/03/19 08:59 Last Admin: 10/04/19 08:07 Dose: 40 mg Documented by: [id number] Potassium Citrate (Urocit-K) 20 meq PO BID [facility] Stop: 11/02/19 20:59 Last Admin: 10/04/19 08:06 Dose: 20 meq Documented by: [id number] Admin: 10/03/19 21:00 Dose: 20 meq Documented by: [id number] Pravastatin Sodium (Pravachol) 40 mg PO HS [facility] Stop: 11/02/19 20:59 Last Admin: 10/03/19 21:01 Dose: 40 mg Documented by: [id number] Discontinued Medications Furosemide (Lasix) 40 mg IV NOW STA Stop: 10/03/19 13:21 Last Admin: 10/03/19 13:48 Dose: 40 mg Documented by: [id number] Sodium Chloride (Nss) 250 mls @ 15 mls/hr IV .[id number] PRN PRN Reason: For Transfusion Stop: 10/03/19 23:20 Last Infusion: 10/03/19 19:00 Dose: 0 mls/hr Documented by: [id number] Admin: 10/03/19 14:23 Dose: 15 mls/hr Documented by: [id number] Phytonadione 2.5 mg/ Sodium (Chloride) 50.25 mls @ 100.5 mls/hr IV ONE ONE Stop: 10/03/19 15:59 Last Infusion: 10/03/19 19:10 Dose: 0 mls/hr Documented by: [id number] Admin: 10/03/19 17:53 Dose: 100 mls/hr Documented by: [id number] Admin: 10/03/19 17:34 Dose: 100.5 mls/hr Documented by: [id number] Lorazepam (Ativan) 1 mg in 2 mls @ 2 mls/min IV ONE ONE; Protocol Stop: 10/03/19 18:01 Last Admin: 10/03/19 19:10 Dose: Not Given Documented by: [id number] Phytonadione 5 mg/ Sodium (Chloride) 50.5 mls @ 101 mls/hr IV 1715 ONE Stop: 10/04/19 17:44 Last Infusion: 10/04/19 17:56 Dose: 0 mls/hr Documented by: [id number] Infusion: 10/04/19 17:43 Dose: 0 mls/hr Documented by: [id number] Admin: 10/04/19 17:16 Dose: 101 mls/hr Documented by: [id number] Lorazepam (Ativan) 0.5 mg PO NOW STA Stop: 10/04/19 00:00 Last Admin: 10/04/19 00:10 Dose: 0.5 mg Documented by: [id number] Medical Decision Making Differential Diagnosis Appendicitis, infections, diverticulitis, UTI, obstruction, mesenteric ischemia, aortic pathology, inflammatory bowel disease, renal colic, PUD, pancreatitis, biliary pathology, hernia, volvulus, constipation, as well as other pathologies. Medical Records Attestation: I reviewed the patient's medical records. Home Medications Current Medication List: was personally reviewed by me Laboratory Data Attestation: I reviewed the patient's lab results. Result diagrams: 10/04/19 12:46 10/04/19 06:15 Lab Results 10/03/19 10/03/19 10/03/19 Range/Units 12:41 12:41 12:41 WBC 9.80 (4.8-10.8) K/uL RBC 2.98 L (4.2-5.4) M/uL Hgb 7.2 L (12.0-16.0) g/dL POC Hgb (12.0-16.0) g/dl Hct 24.3 L (37-47) % POC Hct (37-47) % MCV 81.5 (80-100) fL MCH 24.2 L (25-34) pg MCHC 29.6 L (32-36) g/dL RDW Std Deviation 54.4 H (36.4-46.3) fL RDW Coeff of Rusty 18.2 H (11.5-14.5) % Plt Count 411 H (130-400) K/uL MPV 8.8 (7.4-10.4) fL Immature Gran % (Auto) 0.3 % Neut % (Auto) 85.0 % Lymph % (Auto) 8.7 % Edgar % (Auto) 5.2 % Eos % (Auto) 0.6 % Baso % (Auto) 0.2 % Immature Gran # (Auto) 0.03 H (0.00-0.02) K/uL Neut # (Auto) 8.33 H (1.4-6.5) K/uL Lymph # (Auto) 0.85 L (1.2-3.4) K/uL Edgar # (Auto) 0.51 (0.11-0.59) K/uL Eos # (Auto) 0.06 (0-0.5) K/uL Baso # (Auto) 0.02 (0-0.2) K/uL Polychromasia 1+ Tear Drop Cells 1+ PT 22.8 H (9.0-12.0) Seconds INR 2.3 H (0.9-1.1) POC Sodium (135-144) mmol/L Sodium 137 (136-145) mmol/L POC Potassium (3.3-5.0) mmol/L Potassium 4.7 (3.5-5.1) mmol/L POC Chloride (101-112) mmol/L Chloride 107 (98-107) mmol/L Carbon Dioxide 22 (21-32) mmol/L POC Total CO2 (24-31) mEq/l Anion Gap 8.0 (3-11) POC Anion Gap (16-25) mmol/L POC BUN (7-18) mg/dl BUN 29 H (7-18) mg/dl Creatinine 1.04 (0.6-1.2) mg/dl POC Creatinine (0.6-1.3) mg/dl Est Cr Clr Drug Dosing Not Reportable Est GFR ( Amer) 62.2 Est GFR (Non-Af Amer) 53.6 BUN/Creatinine Ratio 27.4 H (10-20) Glucose 247 H (70-99) mg/dl POC Glucose (other) (70-99) mg/dl Calcium 8.1 L (8.5-10.1) mg/dl POC Ioniz Calcium Kathryn (1.12-1.32) mmol/l Total Bilirubin 0.4 (0.2-1) mg/dl AST 18 (15-37) U/L ALT 24 (12-78) U/L Alkaline Phosphatase 286 H (45-117) U/L Total Creatine Kinase (26-192) U/L CK-MB (CK-2) (0.5-3.6) ng/ml CK/CKMB % Calc Troponin I (0-0.045) ng/ml NT-Pro-B Natriuret Pep 6179 H (0-900) pg/ml Total Protein 7.0 (6.4-8.2) gm/dl Albumin 1.9 L (3.4-5.0) gm/dl Globulin 5.1 H (2.5-4.0) gm/dl Albumin/Globulin Ratio 0.4 L (0.9-2) Lipase 254 (73-393) U/L Urine Color Urine Appearance (Clear) Urine pH (4.5-7.5) Ur Specific [place] (1.000-1.030) Urine Protein (Negative) Urine Glucose (UA) (Negative) Urine Ketones (Negative) Urine Blood (Negative) Urine Nitrite (Negative) Urine Bilirubin (Negative) Urine Urobilinogen (Negative) Ur Leukocyte Esterase (Negative) Urine WBC (Auto) (0-5) /hpf Urine RBC (Auto) (0-4) /hpf U Hyaline Cast (Auto) (0-5) /lpf U Epithel Cells (Auto) (0-5) /lpf Urine Bacteria (Auto) (Negative) Urine Yeast Digoxin (0.8-2.0) ng/ml Blood Type Antibody Screen Crossmatch 10/03/19 10/03/19 10/03/19 Range/Units 12:41 12:41 12:47 WBC (4.8-10.8) K/uL RBC (4.2-5.4) M/uL Hgb (12.0-16.0) g/dL POC Hgb 7.5 L (12.0-16.0) g/dl Hct (37-47) % POC Hct 22 L (37-47) % MCV (80-100) fL MCH (25-34) pg MCHC (32-36) g/dL RDW Std Deviation (36.4-46.3) fL RDW Coeff of Rusty (11.5-14.5) % Plt Count (130-400) K/uL MPV (7.4-10.4) fL Immature Gran % (Auto) % Neut % (Auto) % Lymph % (Auto) % Edgar % (Auto) % Eos % (Auto) % Baso % (Auto) % Immature Gran # (Auto) (0.00-0.02) K/uL Neut # (Auto) (1.4-6.5) K/uL Lymph # (Auto) (1.2-3.4) K/uL Edgar # (Auto) (0.11-0.59) K/uL Eos # (Auto) (0-0.5) K/uL Baso # (Auto) (0-0.2) K/uL Polychromasia Tear Drop Cells PT (9.0-12.0) Seconds INR (0.9-1.1) POC Sodium 135 (135-144) mmol/L Sodium (136-145) mmol/L POC Potassium 4.7 (3.3-5.0) mmol/L Potassium (3.5-5.1) mmol/L POC Chloride 104 (101-112) mmol/L Chloride (98-107) mmol/L Carbon Dioxide (21-32) mmol/L POC Total CO2 19 L (24-31) mEq/l Anion Gap (3-11) POC Anion Gap 17.0 (16-25) mmol/L POC BUN 26 H (7-18) mg/dl BUN (7-18) mg/dl Creatinine (0.6-1.2) mg/dl POC Creatinine 0.8 (0.6-1.3) mg/dl Est Cr Clr Drug Dosing Est GFR ( Amer) Est GFR (Non-Af Amer) BUN/Creatinine Ratio (10-20) Glucose (70-99) mg/dl POC Glucose (other) 249 H (70-99) mg/dl Calcium (8.5-10.1) mg/dl POC Ioniz Calcium Kathryn 1.12 (1.12-1.32) mmol/l Total Bilirubin (0.2-1) mg/dl AST (15-37) U/L ALT (12-78) U/L Alkaline Phosphatase (45-117) U/L Total Creatine Kinase 31 (26-192) U/L CK-MB (CK-2) < 1.0 (0.5-3.6) ng/ml CK/CKMB % Calc TNP Troponin I < 0.015 (0-0.045) ng/ml NT-Pro-B Natriuret Pep (0-900) pg/ml Total Protein (6.4-8.2) gm/dl Albumin (3.4-5.0) gm/dl Globulin (2.5-4.0) gm/dl Albumin/Globulin Ratio (0.9-2) Lipase (73-393) U/L Urine Color Urine Appearance (Clear) Urine pH (4.5-7.5) Ur Specific [place] (1.000-1.030) Urine Protein (Negative) Urine Glucose (UA) (Negative) Urine Ketones (Negative) Urine Blood (Negative) Urine Nitrite (Negative) Urine Bilirubin (Negative) Urine Urobilinogen (Negative) Ur Leukocyte Esterase (Negative) Urine WBC (Auto) (0-5) /hpf Urine RBC (Auto) (0-4) /hpf U Hyaline Cast (Auto) (0-5) /lpf U Epithel Cells (Auto) (0-5) /lpf Urine Bacteria (Auto) (Negative) Urine Yeast Digoxin (0.8-2.0) ng/ml Blood Type A Negative Antibody Screen NEGATIVE Crossmatch See Detail 10/03/19 10/03/19 Range/Units 14:00 14:11 WBC (4.8-10.8) K/uL RBC (4.2-5.4) M/uL Hgb (12.0-16.0) g/dL POC Hgb (12.0-16.0) g/dl Hct (37-47) % POC Hct (37-47) % MCV (80-100) fL MCH (25-34) pg MCHC (32-36) g/dL RDW Std Deviation (36.4-46.3) fL RDW Coeff of Rusty (11.5-14.5) % Plt Count (130-400) K/uL MPV (7.4-10.4) fL Immature Gran % (Auto) % Neut % (Auto) % Lymph % (Auto) % Edgar % (Auto) % Eos % (Auto) % Baso % (Auto) % Immature Gran # (Auto) (0.00-0.02) K/uL Neut # (Auto) (1.4-6.5) K/uL Lymph # (Auto) (1.2-3.4) K/uL Edgar # (Auto) (0.11-0.59) K/uL Eos # (Auto) (0-0.5) K/uL Baso # (Auto) (0-0.2) K/uL Polychromasia Tear Drop Cells PT (9.0-12.0) Seconds INR (0.9-1.1) POC Sodium (135-144) mmol/L Sodium (136-145) mmol/L POC Potassium (3.3-5.0) mmol/L Potassium (3.5-5.1) mmol/L POC Chloride (101-112) mmol/L Chloride (98-107) mmol/L Carbon Dioxide (21-32) mmol/L POC Total CO2 (24-31) mEq/l Anion Gap (3-11) POC Anion Gap (16-25) mmol/L POC BUN (7-18) mg/dl BUN (7-18) mg/dl Creatinine (0.6-1.2) mg/dl POC Creatinine (0.6-1.3) mg/dl Est Cr Clr Drug Dosing Est GFR ( Amer) Est GFR (Non-Af Amer) BUN/Creatinine Ratio (10-20) Glucose (70-99) mg/dl POC Glucose (other) (70-99) mg/dl Calcium (8.5-10.1) mg/dl POC Ioniz Calcium Kathryn (1.12-1.32) mmol/l Total Bilirubin (0.2-1) mg/dl AST (15-37) U/L ALT (12-78) U/L Alkaline Phosphatase (45-117) U/L Total Creatine Kinase (26-192) U/L CK-MB (CK-2) (0.5-3.6) ng/ml CK/CKMB % Calc Troponin I (0-0.045) ng/ml NT-Pro-B Natriuret Pep (0-900) pg/ml Total Protein (6.4-8.2) gm/dl Albumin (3.4-5.0) gm/dl Globulin (2.5-4.0) gm/dl Albumin/Globulin Ratio (0.9-2) Lipase (73-393) U/L Urine Color Yellow Urine Appearance Cloudy A (Clear) Urine pH 7.0 (4.5-7.5) Ur Specific [place] 1.023 (1.000-1.030) Urine Protein 1+ H (Negative) Urine Glucose (UA) Negative (Negative) Urine Ketones Negative (Negative) Urine Blood Trace H (Negative) Urine Nitrite Positive A (Negative) Urine Bilirubin Negative (Negative) Urine Urobilinogen Negative (Negative) Ur Leukocyte Esterase 3+ H (Negative) Urine WBC (Auto) >30 H (0-5) /hpf Urine RBC (Auto) 0-4 (0-4) /hpf U Hyaline Cast (Auto) 1-5 (0-5) /lpf U Epithel Cells (Auto) >30 H (0-5) /lpf Urine Bacteria (Auto) 4+ H (Negative) Urine Yeast Not Reportable Digoxin 0.8 (0.8-2.0) ng/ml Blood Type Antibody Screen Crossmatch Imaging Data Radiologist's Impression: [facility], [place] [phone] XRay Report Patient: IVY BLANDON Admit Date: 10/03/19 MR#: [id number] Address1: [address] [place] [address] Acct ID:[id number] Address2: Date: 1945 [facility] Zip: [place] [address] Age: 74 Location: ED Sex: F Room/Bed: Att Phy: Diagnosis: CYST BURST ON RIGHT SIDE ABD AREA Sherley Phy: Consuelo Arreguin DO Service Date: 10/03/19 Fam Phy: Interpreting Phy: Godwin Luis MD Admit Phy: Ordering Phy: Santos Kingston MD cc: ~ XR chest 1V portable CLINICAL HISTORY: 74 years-old Female presenting with Pt c/o SOB. TECHNIQUE: Portable upright AP view of the chest was obtained. COMPARISON: 09/27/2019. FINDINGS: Atherosclerosis of the aortic arch. Cardiac silhouette enlarged. Mitral annular calcification. Pulmonary vasculature mildly prominent. Slightly added density of interstitial lung markings at the lung bases with bronchial wall thickening suspected, right greater than left. No other focal opacity. No large effusion or pneumothorax. Degenerative changes of the thoracic spine. Upper abdomen normal. IMPRESSION: 1. Cardiomegaly with mild volume overload and congestive change. This may be slightly worse than on the prior exam. No katty pulmonary edema. ACT 112: Negative or not required by law. Electronically signed by: Godwin Luis M.D. 10/03/2019 12:41 PM [facility], [place] [phone] CT Scan Report Patient: IVY BLANDONAdmit Date: 10/03/19 MR#: [id number] [facility] Acct ID:[id number]: Date: 1945[facility] Zip: [place] [address] Age: 74Location: ED Sex: F Room/Bed: Att Phy:Diagnosis: CYST BURST ON RIGHT SIDE ABD AREA Sherley Phy: Consuelo Arreguin DOService Date: 10/03/19 Kavon Phy:Interpreting Phy: Godwin Luis MD Admit Phy: Ordering Phy: Santos Kingston MD cc: ~ CT abd pelvis IV con only CLINICAL HISTORY: 74 years-old Female presenting with Pt large renal cyst "compare to previous" per PCP. TECHNIQUE: Multidetector CT of the abdomen and pelvis was performed without the use of intravenous contrast. IV contrast: None. One or more dose lowering techniques were used consistent with the principles of ALARA (as low as reasonably achievable), including automatic exposure control, mA or kV adjustment to individual patient size, and/or use of iterative reconstruction. COMPARISON: 09/27/2019, 09/08/2018 and 02/10/2011. CT DOSE (mGy.cm): The estimated cumulative dose is 1209.45 mGycm. FINDINGS: Telephone Operators Supervisor topogram: Cholecystectomy clips. Positioning of the arms at the sides results in significantly degraded image quality in the upper abdomen limiting diagnostic sensitivity to a mild to moderate degree. Lung bases: Multichamber enlargement of the heart. Coronary artery, aortic valve, and mitral annular calcification. No pericardial or pleural effusion. Minimal dependent changes likely atelectasis. Liver: The right inferior hepatic lobe is abutted by the large cystic lesion. Parenchymal invasion or subcapsular involvement is difficult to exclude. H eterogeneous enhancement pattern of the right inferior hepatic lobe. Patent hepatic vasculature. Biliary: Mild biliary ductal prominence likely a reservoir effect in the post cholecystectomy state. Gallbladder surgically absent. Pancreas: Normal. Spleen: Normal. Adrenal glands: Normal. Kidneys and ureters: Multicystic kidneys. Multiple nonobstructing renal calculi. No hydronephrosis. Ureters nondistended. Redemonstration of the multicystic mass in the right retroperitoneum resulting in anterior displacement of the right hepatic lobe of the liver and medial displacement of the right kidney. This demonstrates an enhancing rim of soft tissue and heterogeneous low density internally. This has maximal axial dimensions of 15.3 x 13.4 cm, previously 13.6 x 12.2 cm. This is suspected to arise exophytically from the right kidney. There is also partial extension into the right iliac fossa (series 3 image 275). This abuts the overlying abdominal wall musculature making invasion of the muscul ature possible to exclude (series 3 image 227). Bladder: Incompletely evaluated secondary to underdistention. Gas within the urinary bladder presumably relates to catheterization. Pelvic organs: Underlying a calcified fibroid. No adnexal masses. Bowel: Mild diverticulosis of the proximal sigmoid colon without wall thickening or pericolonic inflammatory change. The appendix is normal. No bowel o bstruction. Peritoneal cavity: No free fluid or intraperitoneal gas. Trace retroperitoneal fluid on the right emanating from the cystic mass. Lymph nodes: No gross lymphadenopathy allowing for noncontrast technique. Vasculature: Atherosclerosis of the normal caliber abdominal aorta. Abdominal wall: Poor delineation of the right posterolateral abdominal wall musculature in the right flank from the adjacent cystic mass in the retroperitoneum. Indication is difficult to exclude. Mild body wall edema. Musculoskeletal: Degenerative changes of the spine. IMPRESSION: Positioning of the arms at the sides results in significantly degraded image quality in the upper abdomen limiting diagnostic sensitivity to a mild to moderate degree. 1. Slight interval increase in size of the cystic mass in the right retroperitoneum now measuring 15.3 x 13.4 cm, previously 13.6 x 12.2 cm. This may arise exophytically from the right kidney. This is suspicious for neoplasm. If further evaluation is necessary to confirm the neoplastic nature, contrast enhanced renal MRI could be performed. Urologic consultation is recommended. 2. Additional chronic findings as above. ACT 112: Negative or not required by law. Electronically signed by: Godwin Luis M.D. 10/03/2019 1:51 PM Dictated: 10/03/19 1338 Transcribed: 10/03/19 1338 [place], [place] [phone] Magnetic Resonance Report Patient: IVY BLANDONAdmit Date: 10/03/19 MR#: [id number]: [id number] [facility] Acct ID:[id number]: Date: 1945[facility] Zip: [place] [address] Age: 74Location: 2S Sex: F Room/Bed: [facility] [[email or web address] Att Phy: Zachary Sanchez DODiagnosis: ACUTE BLOOD LOSS ANEMIA,RENAL MASS VS RENAL HEMATO Sherley Phy: Consuelo Arreguin DOService Date: 10/03/19 Fam Phy:Interpreting Phy: Bartolome Villanueva MD Admit Phy: Zachary Sanchez DO Ordering Phy: Santos Kingston MD cc: ~ MR abdomen wo/w con CLINICAL HISTORY: No mass. COMPARISON STUDY: CT examination same date. TECHNIQUE: MRI of the abdomen is performed transverse T1 and T2-weighted sequences in the axial and coronal planes. Contrast enhanced sequences were acquired following the IV administration of 10 cc of Gadavist. FINDINGS: Lower chest: No pleural effusion is identified. The heart is normal in size. Liver: The liver is normal in size, contour, and signal intensity. No intrahepatic biliary ductal dilatation is seen. The hepatic veins and portal veins are patent. Gallbladder: Unremarkable. Spleen: Normal in size and signal intensity. Pancreas: Unremarkable. Adrenal glands: Unremarkable. Kidneys: Multiple bilateral renal cysts. Dominant cystic mass within the right mid to lower kidney. Dimensions are approximately 15 x 14 x 13 cm. Appear to be several internal septations. Postcontrast images demonstrate slight enhancement of the internal septations as well as the possibility of a complex and/or central mural-based polypoid component at its inferior margin. Possibility of neoplasm is not excluded. Bowel: Visualized portions of the small bowel and colon show no evidence of ob struction. Peritoneum: Trace ascites Lymphadenopathy: None. Skeletal structures: Visualized skeletal structures times are normal marrow signal intensity. IMPRESSION: 1. Confirmation of a dominant primarily cystic mass of the right kidney measuring 15 x 14 x 13 cm. 2. Postcontrast images suggest a component of internal septal enhancement as well as a poorly enhancing inferior polypoid type lesion versus dependent hemorrhagic component. 3. A neoplastic process is not entirely excluded. 4. Multiple additional bilateral simple renal cysts. 5. Trace abdominal ascites with mild body wall anasarca. ACT 112: Negative or not required by law. The above report was generated using voice recognition software. It may contain grammatical, syntax or spelling errors. Electronically signed by: Bartolome Villanueva M.D. 10/03/2019 7:53 PM Dictated: 10/03/191948 Transcribed: 10/03/191948 ECG Data Attestation: I personally reviewed and interpreted this ECG as follows: Indication: abdominal pain Rate (beats per minute): 104 Rhythm: atrial fibrillation Findings: + Q waves (Septal); no ST depression and no ST elevation Comparison ECG Date: from (09/27/2019) Change: the following changes noted (No PVCs noted) MDM Narrative Cardiac monitoring: An order was placed for continuous cardiac monitoring. The monitor shows a rate of 116 with atrial fib rhythm. The patient was evaluated during the global COVID-19 pandemic, and that diagnosis was suspected/considered upon their initial presentation. Their evaluation, treatment and testing was consistent with current guidelines for pat ients who present with complaints or symptoms that may be related to COVID-19. This is a 74-year-old female who presents emergency department over concerns that she is anemic. The patient was typed and screened and crossed for 1 unit of packed red blood cells. Due to the patient's CAT scan I did discuss the case with urology who noted they would not be available for surgery however they could be available for supportive care. I did discuss this with the patient. At this point the patient wishes to receive her MRI as well as packed red blood cells. She realizes that she will need to be transferred for [place] and a tertiary care center for removal of the cyst. Based on this I did discuss the case with the hospitalist service who did agree to admit the patient. Patient is agreement with the treatment plan. Patient's hemoglobin here was found to be 7.3. Impression & Plan Renal mass, Abdominal pain, A-fib, Anemia, UTI (urinary tract infection) Critical Care Time I have personally spent greater than 90 minutes of critical care time in the direct management of this patient. This includes bedside care, interpretation of diagnostic studies, and testing, discussion with consultants, patient, and family members, and other required patient management activities. This 90 minutes is in excess of all separately billable procedures. Discharge Plan Visit Data *Final* Discharge Date/Time: 10/03/19 16:10 Chief Complaint: Abdominal Pain Stated Complaint: CYST BURST ON RIGHT SIDE ABD AREA ED Provider: Santos Kingston Discharge Problem: Renal mass, Abdominal pain, A-fib, Anemia, UTI (urinary tract infection) Patient Disposition: Home - Self-Care Discharge Instructions Interventions: ED Discharge Assessment Last Done: 10/03/19 16:10 Discharge Problem: Abdominal pain Qualifiers: Abdominal location: unspecified location Qualified Code(s): R10.9 - Unspecified abdominal pain A-fib Qualifiers: Atrial fibrillation type: unspecified Qualified Code(s): I48.91 - Unspecified atrial fibrillation Anemia Qualifiers: Anemia type: unspecified type Qualified Code(s): D64.9 - Anemia, unspecified UTI (urinary tract infection) Qualifiers: Urinary tract infection type: site unspecified Hematuria presence: without hematuria Qualified Code(s): N39.0 - Urinary tract infection, site not specified
--- NOTE | 2019-10-03 12:39 | Electrocardiogram Report ---
Test Reason : Blood Pressure : / mmHG Vent. Rate : 104 BPM Atrial Rate : 250 BPM P-R Int : 000 ms QRS Dur : 096 ms QT Int : 324 ms P-R-T Axes : 000 062 270 degrees QTc Int : 426 ms Atrial fibrillation with rapid ventricular response Low voltage QRS Probable Old Anteroseptal infarct Abnormal ECG When compared with ECG of 27-SEP-2019 11:04, No significant change Confirmed by Noman Jones ([id number]) on 10/03/2019 12:38:34 PM Referred By: REFERRED SELF Confirmed By:Noman Jones
--- NOTE | 2019-10-03 12:42 | XRay Report ---
XR chest 1V portable CLINICAL HISTORY: 74 years-old Female presenting with Pt c/o SOB. TECHNIQUE: Portable upright AP view of the chest was obtained. COMPARISON: 09/27/2019. FINDINGS: Atherosclerosis of the aortic arch. Cardiac silhouette enlarged. Mitral annular calcification. Pulmon edwina vasculature mildly prominent. Slightly added density of interstitial lung markings at the lung ba ses with bronchial wall thickening suspected, right greater than left. No other focal opacity. No lar ge effusion or pneumothorax. Degenerative changes of the thoracic spine. Upper abdomen normal. IMPRESSION: 1. Cardiomegaly with mild volume overload and congestive change. This may be slightly worse than on the prior exam. No katty pulmonary edema. ACT 112: Negative or not required by law. Electronically signed by: Godwin Luis M.D. 10/03/2019 12:41 PM
[2019-10-03 12:51] LABS: Basophils # (auto) 0.02 K/uL (0-0.2); Basophils % (auto) 0.2 %; Eosinophils # (auto) 0.06 K/uL (0-0.5); Eosinophils % (auto) 0.6 %; Hematocrit (blood only) 24.3 % (37-47); Hemoglobin 7.2 g/dL (12.0-16.0); Immature Granulocytes # (auto) 0.03 K/uL (0.00-0.02); Immature Granulocytes % (auto) 0.3 %; Lymphocytes # (auto) 0.85 K/uL (1.2-3.4); Lymphocytes % (auto) 8.7 %; Mean Corpuscular Hemoglobin 24.2 pg (25-34); Mean Corpuscular Hgb Conc 29.6 g/dL (32-36); Mean Corpuscular Volume 81.5 fL (80-100); Mean Platelet Volume 8.8 fL (7.4-10.4); Monocytes # (auto) 0.51 K/uL (0.11-0.59); Monocytes % (auto) 5.2 %; Neutrophils # (auto) 8.33 K/uL (1.4-6.5); Platelet Count 411 K/uL (130-400); RDW Coefficient of Variation 18.2 % (11.5-14.5); RDW Standard Deviation 54.4 fL (36.4-46.3); Red Blood Count 2.98 M/uL (4.2-5.4)
[2019-10-03 12:59] LABS: iSTAT Creatinine 0.8 mg/dl (0.6-1.3); iSTAT Hemoglobin 7.5 g/dl (12.0-16.0); iSTAT Ionized Calcium 1.12 mmol/l (1.12-1.32); iSTAT Potassium 4.7 mmol/L (3.3-5.0)
[2019-10-03 13:10] LABS: Alanine Aminotransferase 24 U/L (12-78); Albumin Level 1.9 gm/dl (3.4-5.0); Aspartate Aminotransferase 18 U/L (15-37); BUN Creatinine Ratio 27.4 (10-20); Blood Urea Nitrogen 29 mg/dl (7-18); Calcium 8.1 mg/dl (8.5-10.1); Carbon Dioxide 22 mmol/L (21-32); Chloride 107 mmol/L (98-107); Est GFR (African American) 62.2; Est GFR (Non-African American) 53.6; Glucose 247 mg/dl (70-99); Lipase 254 U/L (73-393); Potassium 4.7 mmol/L (3.5-5.1); Sodium 137 mmol/L (136-145)
[2019-10-03 13:15] LABS: Albumin Globulin Ratio 0.4 (0.9-2); Alkaline Phosphatase 286 U/L (45-117); Bilirubin,Total 0.4 mg/dl (0.2-1); Globulin 5.1 gm/dl (2.5-4.0); INR 2.3 (0.9-1.1); NT Pro B Type Natriuretic Pept 6179 pg/ml (0-900); Prothrombin Time 22.8 Seconds (9.0-12.0)
[2019-10-03] MEDS ORDERED: SODIUM CHLORIDE 0.9% 250 ML IV PRN (13:20)
[2019-10-03] MEDS ORDERED: FUROSEMIDE 40 MG/4 ML VIAL IV STA (13:20)
[2019-10-03 13:35] LABS: Polychromasia 1+; Tear Drop Cells 1+
[2019-10-03] MEDS ORDERED: IOVERSOL 100ml IV PRN (13:36)
--- NOTE | 2019-10-03 13:52 | CT Scan Report ---
CT abd pelvis IV con only CLINICAL HISTORY: 74 years-old Female presenting with Pt large renal cyst "compare to previous" per P CP. TECHNIQUE: Multidetector CT of the abdomen and pelvis was performed without the use of intravenous co ntrast. IV contrast: None. One or more dose lowering techniques were used consistent with the princip les of ALA (as low as reasonably achievable), including automatic exposure control, mA or kV adjust ment to individual patient size, and/or use of iterative reconstruction. COMPARISON: 09/27/2019, 09/08/2018 and 02/10/2011. CT DOSE (mGy.cm): The estimated cumulative dose is 1209.45 mGycm. FINDINGS: Re Examiner topogram: Cholecystectomy clips. Positioning of the arms at the sides results in significantly degraded image quality in the upper abd omen limiting diagnostic sensitivity to a mild to moderate degree. Lung bases: Multichamber enlargement of the heart. Coronary artery, aortic valve, and mitral annular calcification. No pericardial or pleural effusion. Minimal dependent changes likely atelectasis. Liver: The right inferior hepatic lobe is abutted by the large cystic lesion. Parenchymal invasion or subcapsular involvement is difficult to exclude. Heterogeneous enhancement pattern of the right infe rior hepatic lobe. Patent hepatic vasculature. Biliary: Mild biliary ductal prominence likely a reservoir effect in the post cholecystectomy state. Gallbladder surgically absent. Pancreas: Normal. Spleen: Normal. Adrenal glands: Normal. Kidneys and ureters: Multicystic kidneys. Multiple nonobstructing renal calculi. No hydronephrosis. U reters nondistended. Redemonstration of the multicystic mass in the right retroperitoneum resulting i n anterior displacement of the right hepatic lobe of the liver and medial displacement of the right k idney. This demonstrates an enhancing rim of soft tissue and heterogeneous low density internally. Th is has maximal axial dimensions of 15.3 x 13.4 cm, previously 13.6 x 12.2 cm. This is suspected to ar ise exophytically from the right kidney. There is also partial extension into the right iliac fossa ( series 3 image 275). This abuts the overlying abdominal wall musculature making invasion of the muscu lature possible to exclude (series 3 image 227). Bladder: Incompletely evaluated secondary to underdistention. Gas within the urinary bladder presumab ly relates to catheterization. Pelvic organs: Underlying a calcified fibroid. No adnexal masses. Bowel: Mild diverticulosis of the proximal sigmoid colon without wall thickening or pericolonic infla mmatory change. The appendix is normal. No bowel obstruction. Peritoneal cavity: No free fluid or intraperitoneal gas. Trace retroperitoneal fluid on the right kelsey nating from the cystic mass. Lymph nodes: No gross lymphadenopathy allowing for noncontrast technique. Vasculature: Atherosclerosis of the normal caliber abdominal aorta. Abdominal wall: Poor delineation of the right posterolateral abdominal wall musculature in the right flank from the adjacent cystic mass in the retroperitoneum. Indication is difficult to exclude. Mild body wall edema. Musculoskeletal: Degenerative changes of the spine. IMPRESSION: Positioning of the arms at the sides results in significantly degraded image quality in the upper abd omen limiting diagnostic sensitivity to a mild to moderate degree. 1. Slight interval increase in size of the cystic mass in the right retroperitoneum now measuring 15 .3 x 13.4 cm, previously 13.6 x 12.2 cm. This may arise exophytically from the right kidney. This is suspicious for neoplasm. If further evaluation is necessary to confirm the neoplastic nature, contras t enhanced renal MRI could be performed. Urologic consultation is recommended. 2. Additional chronic findings as above. ACT 112: Negative or not required by law. Electronically signed by: Godwin Luis M.D. 10/03/2019 1:51 PM
[2019-10-03 13:58] LABS: Creatine Kinase 31 U/L (26-192); Creatine Kinase MB < 1.0 ng/ml (0.5-3.6); Troponin I < 0.015 ng/ml (0-0.045)
[2019-10-03 14:22] LABS: Appearance Urine Cloudy (Clear); Bacteria Urine Automated 4+ (Negative); Bilirubin Urine Negative (Negative); Blood Urine Trace (Negative); Color Urine Yellow; Epithelial Cell Urine Auto >30 /lpf (0-5); Glucose Urine UA Negative (Negative); Ketones Urine Negative (Negative); Leukocyte Esterase Urine 3+ (Negative); Nitrite Urine Positive (Negative); Protein Urine 1+ (Negative); RBC Urine Automated 0-4 /hpf (0-4); Specific Gravity Urine 1.023 (1.000-1.030); Urobilinogen Urine Negative (Negative); WBC Urine Automated >30 /hpf (0-5)
[2019-10-03] MEDS ORDERED: LORazepam 1 MG/2 ML VIAL IV ONE ×2 (15:13→18:00)
--- NOTE | 2019-10-03 15:27 | History & Physical Report ---
Date of Service October 03, 2019 Assessment & Plan (1) Renal mass: (2) Acute blood loss anemia: This is a 74-year-old female who has significant PMH of chronic atrial fibrillation previously anticoagulated on warfarin, T2DM, HTN, HLD, CKD stage III, asthma, diabetic gastroparesis, reported aneurysm who presents to ED at the referral of her PCP. Recent hospitalization at [facility] 09/26 to 09/28 secondary to acute blood loss anemia due to likely ruptured renal cyst and renal hematoma. She received 2 units PRBC with hemoglobin at discharge of 7.6. She had CBC done as outpatient today which showed hemoglobin of 6.8 and she was referred to ED for further evaluation. She remained hemodynamically stable in ED and is currently receiving 1 unit PRBC. Admit to telemetry Transfuse 1 unit of PRBC Repeat H&H at 7 PM Obtain MRI of abdomen/pelvis to better characterize large renal mass Urology consult -appreciate their input (3) Elevated INR: INR 2.3 Has been off warfarin since 09/26, last INR on 09/28 was 1.6 Give vitamin K 2.5 mg IV x1 now due to recent drop in hemoglobin and still concern for renal hematoma/ruptured renal cyst Repeat INR in a.m. (4) UTI (urinary tract infection): Urinalysis concerning for UTI She is afebrile and WBC WNL urine culture pending Start macrobid 100mg bid (pt with allergy to keflex and would avoid quinolones due to pt reporting hx of aneursym?) (5) Diabetes: Last A1c 7.2 07/21 Obtain A1c in a.m. Lantus/NovoLog per protocol Her home regimen consist of Lantus 35 units twice daily, metformin a 50 mg daily, Victoza 1.2 mg daily (6) A-fib: Pt with chronic afib, [id number] 5 Patient mildly tachycardic in ED Continue atenolol, transfuse PRBC, volume depleted which likely explains tachycardia Warfarin is currently on hold secondary to renal hematoma since 09/26 INR today is 2.3 which prior to discharge from [facility] was 1.6 Will give IV vitamin K 2.5 mg x 1 now Repeat INR in a.m. (7) CHF (congestive heart failure): Last echocardiogram 2015 revealed EF 56%, severely dilated left atrium Elevated proBNP 6179, chest x-ray revealing mild pulmonary vascular congestion She denies lower extremity edema, weight gain; however, she does experience shortness breath with exertion which also could be attributed to her anemia She received 40 mg IV Lasix prior to blood transfusion secondary to chest x-ray revealing pulmonary vascular congestion She takes lasix 40mg MWF, monitor daily for need for further diuresis Strict I and O, daily weights obtain echo (8) Hypertension: blood pressure elevated in ED currently on atenolol 50mg daily Had been on atenolol 100mg in a.m. and 50mg in pm and Lisinopril 20mg daily ( recently d/c at [facility] due to low BP) (9) HLD (hyperlipidemia): continue statin (10) DVT prophylaxis: SCDS Disposition: admit to Tele Follow up: PCP Dr. Arreguin upon discharge Pt was seen and examined in collaboration with Dr. Sanchez, please see addendum History of Present Illness Chief Complaint: Referred by PCP. Primary Care Provider: Consuelo Arreguin DO This is a 74-year-old female who has significant PMH of chronic atrial fibrillation previously anticoagulated on warfarin, T2DM, HTN, HLD, CKD stage III, asthma, diabetic gastroparesis, reported aneurysm who presents to ED at the referral of her PCP. Of significance patient was initially seen in [facility] ED on 09/26 secondary to profound anemia with a hemoglobin of 6.1. CT scan abdomen pelvis at that time was concerning for large 14 x 14 x 12 cm multiloculated collection within the right perinephric/retroperitoneal space which demonstrates a peripheral enhancing wall. She was transferred to [facility] for further management after discussing with [facility] urology services. She required 2 units of PRBC with a discharge hemoglobin of 7.6. Her warfarin was obviously held. Her lisinopril was discontinued and her atenolol was decreased down to 50 mg daily due to concern for hypotension. Her H&H remained stable emergency and she was recommended to discharge home and follow-up as outpatient with urology and obtain an outpatient MRI. She had repeat CBC as outpatient today which revealed hemoglobin of 6.8. Because of her drop in hemoglobin she was recommended to see ED. She continues to complain of dyspnea on exertion on minimal exertion. She also elicits nausea, constipation, weight loss of approximately 30 pound. She denies recent fever, chills, sweats, lightheadedness, dizziness, syncope, chest pain, palpitations, shortness breath at rest, cough, hemoptysis, abdominal pain, hematuria, melena, medic easier. She elicits to having dark stools but attributes that to taking iron twice daily. She does feel she has her bowels regulated now with senna 2 tablets daily. She denies any lower extremity swellilng. Allergies Allergy/AdvReac Type Severity Reaction Status Date / Time adhesive Allergy Mild REDNESS Verified 09/27/19 11:31 cephalexin [From Keflex] Allergy Mild Unknown Verified 09/27/19 11:31 Home Medications Home Medications Medication Instructions Recorded Confirmed Type Lantus U-100 Insulin 35 unit SUBCUT BID 03/18/18 10/03/19 History ProAir RespiClick 2 puff INHALATION BID PRN 03/18/18 10/03/19 History Victoza 2-Trevor 1.2 mg SUBCUT DAILY@1600 03/18/18 10/03/19 History allopurinol 300 mg PO QAM 03/18/18 10/03/19 History atenolol 50 mg PO QAM 03/18/18 10/03/19 History digoxin [Digox] 0.125 mg PO DAILY@1600 03/18/18 10/03/19 History fluticasone propionate [Flonase 2 spray INTRANASAL QAM 03/18/18 10/03/19 History Allergy Relief] furosemide 40 mg PO MOWEFR 03/18/18 10/03/19 History isosorbide mononitrate 60 mg PO QAM 03/18/18 10/03/19 History levothyroxine 125 mcg PO QAM 03/18/18 10/03/19 History metformin 850 mg PO QAM 03/18/18 10/03/19 History montelukast 10 mg PO HS 03/18/18 10/03/19 History potassium citrate 20 meq PO BID 03/18/18 10/03/19 History pravastatin 40 mg PO HS 03/18/18 10/03/19 History ipratropium-albuterol 3 ml INHALATION QID PRN 05/02/18 10/03/19 History Centrum Silver 1 tab PO QAM 09/08/18 10/03/19 History Flintstones with Iron 1 tab PO HS 09/08/18 10/03/19 History Emmett-3 1 cap PO BID 09/08/18 10/03/19 History magnesium hydroxide [Milk of 30 ml PO UD PRN 09/08/18 10/03/19 History Magnesia] prednisone 10 mg PO UD PRN 09/08/18 10/03/19 History acetaminophen [Tylenol Extra 500 mg PO Q6H PRN 01/20/19 10/03/19 History Strength] ferrous sulfate 325 mg PO BID 01/20/19 10/03/19 History omeprazole 20 mg PO QAM 01/20/19 10/03/19 History sennosides-docusate sodium 2 tab PO QAM 01/20/19 10/03/19 History [Senokot-S] fluticasone propion-salmeterol 1 inh INHALATION BID 09/27/19 10/03/19 History [Wixela Inhub] Past Med/Surg History Medical History (Updated 10/03/19 @ 15:45 by Cheryl Carvajal PA-C) Asthma Atrial fibrillation CHF (congestive heart failure) CKD stage 3 secondary to diabetes Diabetes Diabetic gastroparesis HLD (hyperlipidemia) Hypertension Pneumonia Surgical History (Updated 10/03/19 @ 15:34 by Cheryl Carvajal PA-C) History of arthroscopic knee surgery History of cholecystectomy History of colonoscopy History of cystoscopy History of lumbar surgery Family History Father Diabetes Stroke Social History Preferred Language: Maltese Communication Ability: Effective [employer] Off[employer]arer Required: No Beliefs That Will Affect Care: None marital status: Current Living Situation: Spouse current occupational status: retired Other Information That Helps Us Care for You: No Feels Safe at Home: Yes Safety Concerns: Feels Safe At This Time Smoking Status: Former smoker Second Hand Exposure: No ; Hx Alcohol Use: No Hx Substance Use: No Review of Systems Review of Systems: All systems reviewed & are unremarkable except as noted in HPI & below Physical Exam Physical Exam: Please refer to Dr. Sanchez addendum for physical exam. Results & Data Results & Data ([facility]) Vital Signs (Past 12 Hours) Vital Signs Temp Pulse Resp BP Pulse Ox 10/03/19 14:53 36.7 C 102 H 18 144/110 H 99 10/03/19 14:38 37.0 C 105 H 18 149/81 H 99 10/03/19 14:20 36.6 C 112 H 20 99 10/03/19 14:01 128 H 36 H 98 10/03/19 14:00 117 H 29 H 127/72 97 10/03/19 13:39 117 H 15 137/71 99 10/03/19 13:38 105 H 21 96 10/03/19 13:06 95 H 25 H 98 10/03/19 13:05 109 H 27 H 144/75 H 99 10/03/19 13:00 104 H 16 10/03/19 12:35 118 H 29 H 10/03/19 12:27 98 10/03/19 12:14 36.7 C 116 H 16 98 Laboratory Results Short CBC 10/03/19 Range/Units 12:41 WBC 9.80 (4.8-10.8) K/uL Hgb 7.2 L (12.0-16.0) g/dL Hct 24.3 L (37-47) % Plt Count 411 H (130-400) K/uL BMP 10/03/19 12:41 Sodium 137 Potassium 4.7 Chloride 107 Carbon Dioxide 22 BUN 29 H Creatinine 1.04 Glucose 247 H Calcium 8.1 L Cardiac Enzymes 10/03/19 Range/Units 12:41 Total Creatine Kinase 31 (26-192) U/L CK-MB (CK-2) < 1.0 (0.5-3.6) ng/ml Troponin I < 0.015 (0-0.045) ng/ml Liver Function 10/03/19 Range/Units 12:41 Total Bilirubin 0.4 (0.2-1) mg/dl AST 18 (15-37) U/L ALT 24 (12-78) U/L Alkaline Phosphatase 286 H (45-117) U/L Albumin 1.9 L (3.4-5.0) gm/dl Urine 10/03/19 Range/Units 14:00 Urine Color Yellow Urine Appearance Cloudy A (Clear) Urine pH 7.0 (4.5-7.5) Ur Specific Ruth 1.023 (1.000-1.030) Urine Protein 1+ H (Negative) Urine Glucose (UA) Negative (Negative) Diagnostic Findings CT Abd/Pelvis: IMPRESSION: Positioning of the arms at the sides results in significantly degraded image quality in the upper abdomen limiting diagnostic sensitivity to a mild to moderate degree. 1. Slight interval increase in size of the cystic mass in the right retroperitoneum now measuring 15.3 x 13.4 cm, previously 13.6 x 12.2 cm. This may arise exophytically from the right kidney. This is suspicious for neoplasm. If further evaluation is necessary to confirm the neoplastic nature, contrast enhanced renal MRI could be performed. Urologic consultation is recommended. 2. Additional chronic findings as above. CXR: IMPRESSION: 1. Cardiomegaly with mild volume overload and congestive change. This may be slightly worse than on the prior exam. No katty pulmonary edema. Medications Administered Sodium Chloride (Nss) 250 mls @ 15 mls/hr IV .[id number] PRN PRN Reason: For Transfusion Stop: 10/03/19 23:20 Last Admin: 10/03/19 14:23 Dose: 15 mls/hr Documented by: [id number] Ioversol (Optiray 320 100ml) 94 ml IV ONCE PRN PRN Reason: Interaction Checking Stop: 10/07/19 13:35 Last Admin: 10/03/19 13:36 Dose: 94 ml Documented by: [id number] Discontinued Medications Furosemide (Lasix) 40 mg IV NOW STA Stop: 10/03/19 13:21 Last Admin: 10/03/19 13:48 Dose: 40 mg Documented by: [id number] ECG Rate (beats per minute): 104 Rhythm: atrial fibrillation Code Status & VTE Plan Code Status Full Code VTE Prophylaxis Plan VTE Prophylaxis will be ordered: Yes Supervising Physician Co-Signing Physician Notes I saw this patient with the physician construction assistant, I participated in the history, physical, review of systems, and physical exam. I reviewed the medications with the patient and the physician construction assistant and helped reconcile the medications. I helped take a detailed family and social history as well. I formulated the assessment and plan personally with the physician construction assistant and went over it with the patient. ROS-No Headache, No Visual Changes, No Nausea, No Vomiting, No Fever, No Chills, No Neck Pain or Stiffness, No Chest Pain, No Palpitations, No SOB, No AYALA, No Cough, No Sputum, No Wheezing, + Abdominal Pain, No Diarrhea, No Hematemesis, No Hemoptysis, No Unexpected Weight Loss, No Flank pain, No Melena, No Hematochezia, No Frequency, No Urgency, No Burning, No Hematuria, No Rashes, No Diaphoresis. Appetite is Normal Physical Exam Gen-AAO x 3, NAD, Afebrile Head-NCAT, EOMI, PERRLA, Anicteric Sclera, No Posterior Pharyngeal Erythema Neck-Supple, No JVD, No Thyromegaly, No Masses, No LAD, No Bruits Lungs-Clear to Auscultation Bilaterally, No Rales, No Rhonchi, No Wheezing, No Crepitus Chest-No S4, +S1, +S2, No S3, No Murmurs, No Rubs, No Gallops, No Ectopy Abdomen-Soft, Bowel Sounds Present, Tender, Non Distended, No Hepatomegaly, No Splenomegaly, +Palpable Mass R, No Rebound, No Rigidity, No Guarding Musculoskeletal-Full Range of Motion Bilaterally, No CVAT Extremities-No Cyanosis, No Clubbing, No Edema Nuero-Cranial Nerves II-XII grossly intact, Motor WNL, DTRs WNL, Strength WNL, Non Focal Psych-Normal Mood (1) UTI (urinary tract infection) Hematuria presence: with hematuria Urinary tract infection type: site unspecified Qualified Code(s): N39.0 - Urinary tract infection, site not speci fied; R31.9 - Hematuria, unspecified
[2019-10-03] MEDS ORDERED: GLUCOSE 10 TABS/TUBE PO PRN (17:28)
[2019-10-03] MEDS ORDERED: GLUCAGON FOR INJ 1 MG VIAL SQ PRN (17:28)
[2019-10-03] MEDS ORDERED: POLYETHYLENE (MIRALAX) 17 GM PACK PO PRN (17:28)
[2019-10-03] MEDS ORDERED: GLUCOSE 40% GEL 15 GM TUBE PO PRN (17:28)
[2019-10-03] MEDS ORDERED: DEXTROSE 50% 50 ML SYRINGE IV PRN (17:28)
[2019-10-03] MEDS ORDERED: ALBUT/IPRATROP 3MG/0.5MG NEB 3 ML VIAL INH PRN (17:28)
[2019-10-03] MEDS ORDERED: ONDANSETRON INJ 2 MG/ML 2 ML VIAL IV PRN (17:28)
[2019-10-03] MEDS ORDERED: ACETAMINOPHEN 325 MG TAB PO PRN (17:28)
[2019-10-03] MEDS ORDERED: CARBOHYDRATES FOR HYPOGLYCEMIA PO PRN (17:28)
[2019-10-03] MEDS ORDERED: MAGNESIUM HYDROXIDE SUSP 30 ML UDC PO PRN (17:28)
[2019-10-03] MEDS: PHYTONADIONE 2.5 MG in SODIUM CHLORIDE 0.9% 50 ML IV ONE ×2 (17:34→17:53)
[2019-10-03] MEDS: INSULIN ASPART 100 UNITS/ML 3 ML PEN SC SCH ×2 (19:11→21:25)
[2019-10-03] MEDS ORDERED: GADOBUTROL 65ML VIAL IV PRN (19:25)
--- NOTE | 2019-10-03 19:54 | Magnetic Resonance Report ---
MR abdomen wo/w con CLINICAL HISTORY: No mass. COMPARISON STUDY: CT examination same date. TECHNIQUE: MRI of the abdomen is performed transverse T1 and T2-weighted sequences in the axial and c oronal planes. Contrast enhanced sequences were acquired following the IV administration of 10 cc of Gadavist. FINDINGS: Lower chest: No pleural effusion is identified. The heart is normal in size. Liver: The liver is normal in size, contour, and signal intensity. No intrahepatic biliary ductal dil atation is seen. The hepatic veins and portal veins are patent. Gallbladder: Unremarkable. Spleen: Normal in size and signal intensity. Pancreas: Unremarkable. Adrenal glands: Unremarkable. Kidneys: Multiple bilateral renal cysts. Dominant cystic mass within the right mid to lower kidney. D imensions are approximately 15 x 14 x 13 cm. Appear to be several internal septations. Postcontrast images demonstrate slight enhancement of the internal septations as well as the possibil ity of a complex and/or central mural-based polypoid component at its inferior margin. Possibility of neoplasm is not excluded. Bowel: Visualized portions of the small bowel and colon show no evidence of obstruction. Peritoneum: Trace ascites Lymphadenopathy: None. Skeletal structures: Visualized skeletal structures times are normal marrow signal intensity. IMPRESSION: 1. Confirmation of a dominant primarily cystic mass of the right kidney measuring 15 x 14 x 13 cm. 2. Postcontrast images suggest a component of internal septal enhancement as well as a poorly enhanci ng inferior polypoid type lesion versus dependent hemorrhagic component. 3. A neoplastic process is not entirely excluded. 4. Multiple additional bilateral simple renal cysts. 5. Trace abdominal ascites with mild body wall anasarca. ACT 112: Negative or not required by law. The above report was generated using voice recognition software. It may contain grammatical, syntax or spelling errors. Electronically signed by: Bartolome Villanueva M.D. 10/03/2019 7:53 PM
[2019-10-03 19:55] LABS: Hematocrit (blood only) 27.4 % (37-47); Hemoglobin 8.5 g/dL (12.0-16.0)
[2019-10-03] MEDS: DIGOXIN 0.125 MG TAB PO SCH (20:12)
[2019-10-03] MEDS ORDERED: [UNRECOGNIZED DRUG - REMARK] PO SCH (21:00)
[2019-10-03] MEDS: POTASSIUM CITRATE 10 MEQ TAB PO SCH (21:00)
[2019-10-03] MEDS: OMEGA-3 (PURIFIED FISH OIL) 1 GM CAP PO SCH (21:00)
[2019-10-03] MEDS: NITROFURANTOIN MONOHYDRATE 100 MG CAP PO SCH (21:01)
[2019-10-03] MEDS: PRAVASTATIN SOD 40 MG TAB PO SCH (21:01)
[2019-10-03] MEDS: MONTELUKAST SODIUM 10 MG TABLET PO SCH (21:01)
[2019-10-03] MEDS: FERROUS SULFATE 325 MG TAB PO SCH (21:01)
[2019-10-03] MEDS: INSULIN GLARGINE SOLOSTAR 100 UNITS/ML 3 ML PEN SC SCH (21:25)
[2019-10-03] MEDS ORDERED: LORazepam 0.5 MG TAB PO STA (23:59)
[2019-10-04] MEDS ORDERED: LEVOTHYROXINE SODIUM 125 MCG TABLET PO SCH (06:30)
[2019-10-04 06:40] LABS: Hematocrit (blood only) 26.6 % (37-47); Hemoglobin 8.2 g/dL (12.0-16.0); Mean Corpuscular Hemoglobin 25.3 pg (25-34); Mean Corpuscular Hgb Conc 30.8 g/dL (32-36); Mean Corpuscular Volume 82.1 fL (80-100); Mean Platelet Volume 9.5 fL (7.4-10.4); Platelet Count 427 K/uL (130-400); Red Blood Count 3.24 M/uL (4.2-5.4); White Blood Count 10.99 K/uL (4.8-10.8)
--- NOTE | 2019-10-04 06:46 | Hospitalist Progress Note ---
Date of Service October 04, 2019 Assessment & Plan (1) Renal mass: (2) Acute blood loss anemia: This is a 74-year-old female who has significant PMH of chronic atrial fibrillation previously anticoagulated on warfarin, T2DM, HTN, HLD, CKD stage III, asthma, diabetic gastroparesis, reported aneurysm who presents to ED at the referral of her PCP. Recent hospitalization at [facility] 09/26 to 09/28 secondary to acute blood loss anemia due to likely ruptured renal cyst and renal hematoma. She received 2 units PRBC with hemoglobin at discharge of 7.6. She had CBC done as outpatient today which showed hemoglobin of 6.8 and she was referred to ED for further evaluation. She remained hemodynamically stable in ED and is currently receiving 1 unit PRBC. Telemetry Transfuse 1 unit of PRBC MRI of abdomen/pelvis Urology Eval (3) Elevated INR: INR 2.3 on admission Has been off warfarin since 09/26, last INR on 09/28 was 1.6 Vitamin K IV x1 now due to recent drop in hemoglobin and still concern for renal hematoma/ruptured renal cyst (4) UTI (urinary tract infection): Urinalysis concerning for UTI She is afebrile and WBC WNL urine culture pending Macrobid 100mg bid (pt with allergy to keflex and would avoid quinolones due to pt reporting hx of aneursym?) (5) Diabetes: Last A1c 7.2 07/21 Obtain A1c in a.m. Lantus/NovoLog per protocol Her home regimen consist of Lantus 35 units twice daily, metformin a 50 mg daily, Victoza 1.2 mg daily (6) A-fib: Pt with chronic afib, [id number] 5 Patient mildly tachycardic in ED Continue atenolol, transfuse PRBC, volume depleted which likely explains tachycardia Warfarin is currently on hold secondary to renal hematoma since 09/26 (7) CHF (congestive heart failure): Last echocardiogram 2015 revealed EF 56%, severely dilated left atrium Elevated proBNP 6179, chest x-ray revealing mild pulmonary vascular congestion She denies lower extremity edema, weight gain; however, she does experience shortness breath with exertion which also could be attributed to her anemia She received 40 mg IV Lasix prior to blood transfusion secondary to chest x-ray revealing pulmonary vascular congestion She takes lasix 40mg MWF, monitor daily for need for further diuresis Strict I and O, daily weights obtain echo (8) Hypertension: blood pressure elevated in ED currently on atenolol 50mg daily Had been on atenolol 100mg in a.m. and 50mg in pm and Lisinopril 20mg daily ( recently d/c at [facility] due to low BP) (9) HLD (hyperlipidemia): continue statin (10) DVT prophylaxis: SCDS Disposition: admit to Tele Follow up: PCP Dr. Arreguin upon discharge Labs checked ROS-No Headache, No Visual Changes, No Nausea, No Vomiting, No Fever, No Chills, No Neck Pain or Stiffness, No Chest Pain, No Palpitations, No SOB, No AYALA, No Cough, No Sputum, No Wheezing, + Abdominal Pain, No Diarrhea, No Hematemesis, No Hemoptysis, No Unexpected Weight Loss, No Flank pain, No Melena, No Hematochezia, No Frequency, No Urgency, No Burning, No Hematuria, No Rashes, No Diaphoresis. Appetite is Normal Physical Exam Gen-AAO x 3, NAD, Afebrile Head-NCAT, EOMI, PERRLA, Anicteric Sclera, No Posterior Pharyngeal Erythema Neck-Supple, No JVD, No Thyromegaly, No Masses, No LAD, No Bruits Lungs-Clear to Auscultation Bilaterally, No Rales, No Rhonchi, No Wheezing, No Crepitus Chest-No S4, +S1, +S2, No S3, No Murmurs, No Rubs, No Gallops, No Ectopy Abdomen-Soft, Bowel Sounds Present, Tender, Non Distended, No Hepatomegaly, No Splenomegaly, No Palpable Masses, No Rebound, No Rigidity, No Guarding Musculoskeletal-Full Range of Motion Bilaterally, No CVAT Extremities-No Cyanosis, No Clubbing, No Edema Nuero-Cranial Nerves II-XII grossly intact, Motor WNL, DTRs WNL, Strength WNL, Non Focal Psych-Normal Mood Admission and Anticipated Discharge Date Admission Date: October 03, 2019 Results & Data Results & Data ([facility]) Vital Signs (Past 12 Hours) Vital Signs Temp Pulse Pulse Pulse Resp BP BP 10/04/19 04:17 36.8 C 120 H 20 131/79 10/04/19 00:00 136 H 10/03/19 23:35 37.6 C H 131 H 19 137/77 10/03/19 20:12 128 H Pulse Ox 10/04/19 04:17 96 10/04/19 00:00 10/03/19 23:35 96 10/03/19 20:12 (1) UTI (urinary tract infection) Hematuria presence: without hematuria Urinary tract infection type: site unspecified Qualified Code(s): N39.0 - Urinary tract infection, site not specified
[2019-10-04 06:55] LABS: INR 1.6 (0.9-1.1); Prothrombin Time 16.8 Seconds (9.0-12.0)
[2019-10-04 07:04] LABS: Estimated Average Glucose 140 mg/dl; Hemoglobin A1C 6.5 % (4.5-5.6)
[2019-10-04 07:17] LABS: BUN Creatinine Ratio 27.8 (10-20); Calcium 8.6 mg/dl (8.5-10.1); Creatinine Clr Calc Pharmacy 71.1 ml/min; Est GFR (African American) 78.2; Est GFR (Non-African American) 67.5; Potassium 4.7 mmol/L (3.5-5.1)
[2019-10-04] MEDS: INSULIN ASPART 100 UNITS/ML 3 ML PEN SC SCH ×4 (08:02→21:32)
[2019-10-04] MEDS: INSULIN GLARGINE SOLOSTAR 100 UNITS/ML 3 ML PEN SC SCH ×2 (08:03→21:34)
[2019-10-04] MEDS: POTASSIUM CITRATE 10 MEQ TAB PO SCH ×2 (08:06→21:31)
[2019-10-04] MEDS: NITROFURANTOIN MONOHYDRATE 100 MG CAP PO SCH ×2 (08:06→21:31)
[2019-10-04] MEDS: OMEGA-3 (PURIFIED FISH OIL) 1 GM CAP PO SCH ×2 (08:07→21:31)
--- NOTE | 2019-10-04 08:14 | Urology Consultation ---
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 She has been hospitalized on several occasions secondary to presumed bleeding and pain related to this cyst Imaging suggests possibility of mural component/malignancy but difficult to definitively assess given the bleeding She is stable at the moment but required a transfusion yesterday Given the recurrent symptoms, I believe she likely warrants surgical intervention -however I do not think we are well equipped to offer this at our institution and should consider referral back to [facility] outpt eval with Dr. Dottie Gordon would be ideal if he could be accomplished within the next 1 to 2 weeks History of Present Illness Attending Physician: Zachary Sanchez, DO History of Present Illness 74-year-old female with an interesting history of renal cystic disease with several issues over the past 2 months She has had several imaging studies which have revealed a very large posterior/lateral renal cyst arising from the right kidney, appears to be abutting the lateral half of the liver without definitive invasion. She has seemingly bled from this lesion on multiple occasions and required transfusions on at least 2 occasions. She was evaluated through the [facility] system recently and they elected observation, unfortunately she has now returned through the emergency room with pain, anemia, tachycardia (history of A. fib) and general ill feeling. She received transfusion yesterday in the emergency room and had a repeat CT which showed some progression/increase of inflammation around the Kidney. She was admitted and had an MRI overnight. This seems to show some complexity to the cystI suspect a significant portion of this is bleeding within the cyst, cannot definitively rule out a mass and given the recurrent bleeding the likelihood of mass is significant. There also is a relatively thick walled to the cyst which I cannot definitively rule out malignant nature versus simple inflammation. Subjectively she feels well this morning, denies pain No hematuria or dysuria Remains tachycardicthis seems to be relatively chronic given her A. fib Creatinine 0.86 Hemoglobin 8.2 Allergies Allergy/AdvReac Type Severity Reaction Status Date / Time adhesive Allergy Mild REDNESS Verified 09/27/19 11:31 cephalexin [From Keflex] Allergy Mild Unknown Verified 09/27/19 11:31 Home Medications Home Medications Medication Instructions Recorded Confirmed Type Lantus U-100 Insulin 35 unit SUBCUT BID 03/18/18 10/03/19 History ProAir RespiClick 2 puff INHALATION BID PRN 03/18/18 10/03/19 History Victoza 2-Trevor 1.2 mg SUBCUT DAILY@1600 03/18/18 10/03/19 History allopurinol 300 mg PO QAM 03/18/18 10/03/19 History atenolol 50 mg PO QAM 03/18/18 10/03/19 History digoxin [Digox] 0.125 mg PO DAILY@1600 03/18/18 10/03/19 History fluticasone propionate [Flonase 2 spray INTRANASAL QAM 03/18/18 10/03/19 History Allergy Relief] furosemide 40 mg PO MOWEFR 03/18/18 10/03/19 History isosorbide mononitrate 60 mg PO QAM 03/18/18 10/03/19 History levothyroxine 125 mcg PO QAM 03/18/18 10/03/19 History metformin 850 mg PO QAM 03/18/18 10/03/19 History montelukast 10 mg PO HS 03/18/18 10/03/19 History potassium citrate 20 meq PO BID 03/18/18 10/03/19 History pravastatin 40 mg PO HS 03/18/18 10/03/19 History ipratropium-albuterol 3 ml INHALATION QID PRN 05/02/18 10/03/19 History Centrum Silver 1 tab PO QAM 09/08/18 10/03/19 History Flintstones with Iron 1 tab PO HS 09/08/18 10/03/19 History [place]-3 1 cap PO BID 09/08/18 10/03/19 History magnesium hydroxide [Milk of 30 ml PO UD PRN 09/08/18 10/03/19 History Magnesia] prednisone 10 mg PO UD PRN 09/08/18 10/03/19 History acetaminophen [Tylenol Extra 500 mg PO Q6H PRN 01/20/19 10/03/19 History Strength] ferrous sulfate 325 mg PO BID 01/20/19 10/03/19 History omeprazole 20 mg PO QAM 01/20/19 10/03/19 History sennosides-docusate sodium 2 tab PO QAM 01/20/19 10/03/19 History [Senokot-S] fluticasone propion-salmeterol 1 inh INHALATION BID 09/27/19 10/03/19 History [Wixela Inhub] Patient History Medical History Asthma Atrial fibrillation (Acute) CHF (congestive heart failure) CKD stage 3 secondary to diabetes Diabetes Diabetic gastroparesis HLD (hyperlipidemia) Hypertension Pneumonia Surgical History History of arthroscopic knee surgery History of cholecystectomy History of colonoscopy History of cystoscopy History of lumbar surgery Family History Father Diabetes Stroke Social History Preferred Language: Mohawk Communication Ability: Effective Public Relations Required: No Beliefs That Will Affect Care: None marital status: Current Living Situation: Spouse current occupational status: retired Other Information That Helps Us Care for You: No Feels Safe at Home: Yes Safety Concerns: Feels Safe At This Time Smoking Status: Former smoker Second Hand Exposure: No ; Hx Alcohol Use: No Hx Substance Use: No Review of Systems Review of Systems: All systems reviewed & are unremarkable except as noted in HPI & below Physical Exam Constitutional: well developed and well nourished Neck: neck nontender Respiratory: normal respiratory effort; no respiratory distress and does not use accessory muscles Cardiovascular: Rate/Rhythm: + tachycardic Vessels: radial pulses present Extremities: no edema Gastrointestinal (Abdomen): Percussion/Palpation: + abdominal mass (Large, easily palpable mass occupying the right upper quadrant); abdomen nontender and no guarding Musculoskeletal: Head/Neck/Chest: normocephalic and head atraumatic Extremities: extremities normal to inspection Skin: no rashes and no lesions Trauma: no evidence of skin trauma Neurologic: awake; not obtunded Speech / Cognition: normal speech Motor/Sensory: no tremor Psychiatric: Orientation: alert and oriented x 3 Lymphatic: no lymphadenopathy Results & Data Vital Signs (Past 12 Hours) Vital Signs Temp Pulse Pulse Pulse Resp BP BP 10/04/19 07:32 37.0 C 122 H 20 143/83 H 10/04/19 04:17 36.8 C 120 H 20 131/79 10/04/19 00:00 136 H 10/03/19 23:35 37.6 C H 131 H 19 137/77 10/03/19 20:12 128 H Pulse Ox 10/04/19 07:32 97 10/04/19 04:17 96 10/04/19 00:00 10/03/19 23:35 96 10/03/19 20:12 PG Care Time/CCT Total # of Minutes Spent Total Time Spent with Patient: Total time spent is greater than 50% in coordination of care (as documented) at patient's floor/unit and/or counseling patient: Coding Level of Care Code 53419 Inpt Consult Level 4 Diagnoses Renal mass N28.89
[2019-10-04] MEDS ORDERED: ATENOLOL 50 MG TABLET PO SCH (09:00)
[2019-10-04] MEDS ORDERED: FLUTICASONE/VILANTEROL 100/25MCG 14 PUFFS/INHALER INH SCH (09:00)
[2019-10-04] MEDS ORDERED: ISOSORBIDE MONO EXTENDED REL 60 MG TABCR PO SCH (09:00)
[2019-10-04] MEDS ORDERED: CEROVITE ADV FORMULA TAB PO SCH (09:00)
[2019-10-04] MEDS ORDERED: PANTOprazole 40 MG TAB PO SCH (09:00)
[2019-10-04] MEDS ORDERED: allopurinoL 300 MG TAB PO SCH (09:00)
[2019-10-04] MEDS ORDERED: FLUTICASONE PROPIONATE NA SPR 16 GM BTL SCH (09:00)
[2019-10-04] MEDS: FERROUS SULFATE 325 MG TAB PO SCH ×2 (11:48→21:31)
[2019-10-04 13:00] LABS: Hematocrit (blood only) 25.3 % (37-47); Hemoglobin 7.6 g/dL (12.0-16.0)
[2019-10-04] MEDS: DIGOXIN 0.125 MG TAB PO SCH (16:36)
[2019-10-04] MEDS ORDERED: PHYTONADIONE 5 MG in SODIUM CHLORIDE 0.9% 50 ML IV ONE (17:15)
[2019-10-04] MEDS ORDERED: ALPRAZolam 0.5 MG TABLET PO PRN (17:46)
[2019-10-04 19:08] LABS: Hemoglobin 8.3 g/dL (12.0-16.0)
[2019-10-04] MEDS ORDERED: LORazepam 0.5 MG/1 ML VIAL IV STA (20:21)
[2019-10-04] MEDS: MONTELUKAST SODIUM 10 MG TABLET PO SCH (21:31)
[2019-10-04] MEDS: PRAVASTATIN SOD 40 MG TAB PO SCH (21:32)
--- NOTE | 2019-10-05 08:14 | Discharge Summary ---
Date of Service October 04, 2019 Admission HPI Per Admitting Provider This is a 74-year-old female who has significant PMH of chronic atrial fibrillation previously anticoagulated on warfarin, T2DM, HTN, HLD, CKD stage III, asthma, diabetic gastroparesis, reported aneurysm who presents to ED at the referral of her PCP. Of significance patient was initially seen in [facility] ED on 09/26 secondary to profound anemia with a hemoglobin of 6.1. CT scan abdomen pelvis at that time was concerning for large 14 x 14 x 12 cm multiloculated collection within the right perinephric/retroperitoneal space which demonstrates a peripheral enhancing wall. She was transferred to [facility] for further management after discussing with [facility] urology services. She required 2 units of PRBC with a discharge hemoglobin of 7.6. Her warfarin was obviously held. Her lisinopril was discontinued and her atenolol was decreased down to 50 mg daily due to concern for hypotension. Her H&H remained stable emergency and she was recommended to discharge home and follow-up as outpatient with urology and obtain an outpatient MRI. She had repeat CBC as outpatient today which revealed hemoglobin of 6.8. Because of her drop in hemoglobin she was recommended to see ED. She continues to complain of dyspnea on exertion on minimal exertion. She also elicits nausea, constipation, weight loss of approximately 30 pound. She denies recent fever, chills, sweats, lightheadedness, dizziness, syncope, chest pain, palpitations, shortness breath at rest, cough, hemoptysis, abdominal pain, hematuria, melena, medic easier. She elicits to having dark stools but attributes that to taking iron twice daily. She does feel she has her bowels regulated now with senna 2 tablets daily. She denies any lower extremity swellilng. Admission Exam Per Admitting Provider Physical Exam Gen-AAO x 3, NAD, Afebrile Head-NCAT, EOMI, PERRLA, Anicteric Sclera, No Posterior Pharyngeal Erythema Neck-Supple, No JVD, No Thyromegaly, No Masses, No LAD, No Bruits Lungs-Clear to Auscultation Bilaterally, No Rales, No Rhonchi, No Wheezing, No Crepitus Chest-No S4, +S1, +S2, No S3, No Murmurs, No Rubs, No Gallops, No Ectopy Abdomen-Soft, Bowel Sounds Present, Tender, Non Distended, No Hepatomegaly, No Splenomegaly, +Palpable Mass R, No Rebound, No Rigidity, No Guarding Musculoskeletal-Full Range of Motion Bilaterally, No CVAT Extremities-No Cyanosis, No Clubbing, No Edema Nuero-Cranial Nerves II-XII grossly intact, Motor WNL, DTRs WNL, Strength WNL, Non Focal Psych-Normal Mood Principal Diagnosis Renal mass: Acute blood loss anemia: Elevated INR: UTI (urinary tract infection): Diabetes: A-fib: CHF (congestive heart failure): Hypertension: HLD (hyperlipidemia): Discharge Exam Physical Exam Gen-AAO x 3, NAD, Afebrile Head-NCAT, EOMI, PERRLA, Anicteric Sclera, No Posterior Pharyngeal Erythema Neck-Supple, No JVD, No Thyromegaly, No Masses, No LAD, No Bruits Lungs-Clear to Auscultation Bilaterally, No Rales, No Rhonchi, No Wheezing, No Crepitus Chest-No S4, +S1, +S2, No S3, No Murmurs, No Rubs, No Gallops, No Ectopy Abdomen-Soft, Bowel Sounds Present, Tender, Non Distended, No Hepatomegaly, No Splenomegaly, No Palpable Masses, No Rebound, No Rigidity, No Guarding Musculoskeletal-Full Range of Motion Bilaterally, No CVAT Extremities-No Cyanosis, No Clubbing, No Edema Nuero-Cranial Nerves II-XII grossly intact, Motor WNL, DTRs WNL, Strength WNL, Non Focal Psych-Tearful Discharge Data Allergies Allergy/AdvReac Type Severity Reaction Status Date / Time adhesive Allergy Mild REDNESS Verified 09/27/19 11:31 cephalexin [From Keflex] Allergy Mild Unknown Verified 09/27/19 11:31 Consultations 10/03/19 14:20 ED Decision to Admit Stat 10/03/19 17:28 Consult Urology Routine 10/04/19 19:29 Burn CD for patient Stat Ordered Studies 10/03/19 12:27 CT abd pelvis IV con only Stat 10/03/19 14:11 MR abdomen wo/w con Stat IMPRESSION: 1. Confirmation of a dominant primarily cystic mass of the right kidney measuring 15 x 14 x 13 cm. 2. Postcontrast images suggest a component of internal septal enhancement as well as a poorly enhancing inferior polypoid type lesion versus dependent hemorrhagic component. 3. A neoplastic process is not entirely excluded. 4. Multiple additional bilateral simple renal cysts. 5. Trace abdominal ascites with mild body wall anasarca. Current Diagnoses Acute posthemorrhagic anemia (10/03/19) Type 2 diabetes mellitus without complications (10/03/19) Hyperlipidemia, unspecified (10/03/19) Essential (primary) hypertension (10/03/19) Unspecified atrial fibrillation (10/03/19) Heart failure, unspecified (10/03/19) Other specified disorders of kidney and ureter (10/03/19) Urinary tract infection, site not specified (10/03/19) Hematuria, unspecified (10/03/19) Abnormal coagulation profile (10/03/19) Encounter for prophylactic measures, unspecified (10/03/19) Allergies adhesive Allergy (Mild, Verified 09/27/19 11:31) REDNESS cephalexin [From Keflex] Allergy (Mild, Verified 09/27/19 11:31) Unknown Height/Weight/Isolation Height 5 ft 8 in Weight 94.7 kg Chemistry 10/03/19 10/04/19 12:41 06:15 Sodium 137 135 L Potassium 4.7 4.7 Chloride 107 105 Carbon Dioxide 22 23 Anion Gap 8.0 7.0 BUN 29 H 24 H Creatinine 1.04 0.86 Glucose 247 H 104 H Urinalysis 10/03/19 14:00 Urine Color Yellow Urine Appearance Cloudy A Urine pH 7.0 Ur Specific [place] 1.023 Urine Protein 1+ H Urine Glucose (UA) Negative Urine Ketones Negative Urine Blood Trace H Urine Nitrite Positive A Urine Bilirubin Negative Microbiology 10/03/19 14:00 Urine,Clean Catch Urine Culture - Final Klebsiella pneumoniae Hospital Course (1) Renal mass: (2) Acute blood loss anemia: This is a 74-year-old female who has significant PMH of chronic atrial fibrillation previously anticoagulated on warfarin, T2DM, HTN, HLD, CKD stage III, asthma, diabetic gastroparesis, reported aneurysm who presents to ED at the referral of her PCP. Recent hospitalization at [facility] 09/26 to 09/28 secondary to acute blood loss anemia due to likely ruptured renal cyst and renal hematoma. She received 2 units PRBC with hemoglobin at discharge of 7.6. She had CBC done as outpatient today which showed hemoglobin of 6.8 and she was referred to ED for further evaluation. She remained hemodynamically stable in ED and is currently receiving 1 unit PRBC. Telemetry Transfuse 1 unit of PRBC MRI of abdomen/pelvis Urology Eval-It was felt that this be better handled at [facility] and she was transferred 10/04/19 at 2100 (3) Elevated INR: INR 2.3 on admission Has been off warfarin since 09/26, last INR on 09/28 was 1.6 Vitamin K IV x1 now due to recent drop in hemoglobin and still concern for renal hematoma/ruptured renal cyst (4) UTI (urinary tract infection): Urinalysis concerning for UTI She is afebrile and WBC WNL urine culture pending Macrobid 100mg bid (pt with allergy to keflex and would avoid quinolones due to pt reporting hx of aneursym?) Culture +Klebsiella Pneumoniae (5) Diabetes: Last A1c 7.2 07/21 Obtain A1c in a.m. Lantus/NovoLog per protocol Her home regimen consist of Lantus 35 units twice daily, metformin a 50 mg daily, Victoza 1.2 mg daily (6) A-fib: Pt with chronic afib, [id number] 5 Patient mildly tachycardic in ED Continue atenolol, transfuse PRBC, volume depleted which likely explains tachycardia Warfarin is currently on hold secondary to renal hematoma since 09/26 (7) CHF (congestive heart failure): Last echocardiogram 2015 revealed EF 56%, severely dilated left atrium Elevated proBNP 6179, chest x-ray revealing mild pulmonary vascular congestion She denies lower extremity edema, weight gain; however, she does experience shortness breath with exertion which also could be attributed to her anemia She received 40 mg IV Lasix prior to blood transfusion secondary to chest x-ray revealing pulmonary vascular congestion She takes lasix 40mg MWF, monitor daily for need for further diuresis Strict I and O, daily weights obtain echo (8) Hypertension: blood pressure elevated in ED currently on atenolol 50mg daily Had been on atenolol 100mg in a.m. and 50mg in pm and Lisinopril 20mg daily ( recently d/c at [facility] due to low BP) (9) HLD (hyperlipidemia): continue statin (10) DVT prophylaxis: SCDS Disposition: Transfer to [facility] s/o Dr Linsey SMITH, and Dr Bala ALVAREZ Follow up: PCP Dr. Arreguin upon discharge Total Time Total Time Spent Total Time Spent (In Minutes): 75 mins Total Time Includes: Examination of the Patient, Discharge Planning, Medication Reconciliation and Communication With Other Providers Discharge Plan Discharge Items Patient Disposition: Transfer Acute Care Hospital Reason For Visit: ACUTE BLOOD LOSS ANEMIA,RENAL MASS VS RENAL HEMATO Discharge Diagnosis: Acute blood loss anemia' renal mass Activity: As commented below Activity Comment: Transferring to [facility] care Non-emergency contact: Primary Care Provider Call non-emergency contact if: you have any medication questions and your symptoms worsen Follow-up/Referrals: Consuelo Arreguin DO [Primary Care Provider] - Diet: Nothing by Mouth Addtl Attending Provider Instructions: Followup as per [facility] Pending Studies at Discharge: No Stand-Alone Forms: My [facility] Skilled Items Patient informed of condition?: Yes DNR: No Discharge Level of Care: Other Communicable Disease: No Discharge Prognosis: Other Lines: Peripheral IV Urinary Catheter: No Medications and DC Order Prescriptions: New furosemide 40 mg Tablet 40 mg PO MoWeFr@0900 Qty: 5 RF: 0 ipratropium-albuterol 0.5 mg-3 mg(2.5 mg base)/3 mL Solution For Nebulization 3 ml inhalation QIDR PRN (Reason: shortness of breath) Qty: 1 RF: 1 polyethylene glycol 3350 [Miralax] 17 gram Powder In Packet 17 g PO DAILY PRN (Reason: constipation) Qty: 5 RF: 0 pravastatin 40 mg Tablet 40 mg PO HS Qty: 5 RF: 0 isosorbide mononitrate 60 mg Tablet Extended Release 24 Hr 60 mg PO QAM Qty: 5 RF: 0 potassium citrate 10 mEq (1,080 mg) Tablet Extended Release 20 meq PO BID Qty: 2 RF: 0 pantoprazole 40 mg Tablet,Delayed Release (Dr/Ec) 40 mg PO QAM Qty: 5 RF: 0 digoxin [Digitek] 125 mcg (0.125 mg) Tablet 0.125 mg PO DAILY@1600 Qty: 5 RF: 0 ferrous sulfate 325 mg (65 mg iron) Tablet,Delayed Release (Dr/Ec) 325 mg PO BID Qty: 5 RF: 0 fluticasone propionate 50 mcg/actuation [place],Suspension 2 spray NA QAM Qty: 1 RF: 0 atenolol 50 mg Tablet 50 mg PO QAM Qty: 5 RF: 0 nitrofurantoin monohyd/m-cryst 100 mg Capsule 100 mg PO BID Qty: 5 RF: 0 Fish Oil 340-1,000 mg Capsule 1 g PO BID Qty: 5 RF: 0 Discontinued potassium citrate 10 mEq (1,080 mg) Tablet Extended Release 20 meq PO BID RF: 0 pravastatin 40 mg Tablet 40 mg PO HS RF: 0 atenolol 50 mg Tablet 50 mg PO QAM RF: 0 furosemide 40 mg Tablet 40 mg PO MOWEFR RF: 0 isosorbide mononitrate 60 mg Tablet Extended Release 24 Hr 60 mg PO QAM RF: 0 digoxin [Digox] 125 mcg Tablet 0.125 mg PO DAILY@1600 RF: 0 fluticasone propionate [Flonase Allergy Relief] 50 mcg/actuation [place],Suspension 2 spray Intranasal QAM RF: 0 ipratropium-albuterol 0.5 mg-3 mg(2.5 mg base)/3 mL solution for nebulization 3 ml Inhalation QID PRN (Reason: Shortness Of Breath Or Wheezing) RF: 0 ferrous sulfate 325 mg (65 mg iron) tablet,delayed release (DR/EC) 325 mg PO BID RF: 0 omeprazole 20 mg capsule,delayed release(DR/EC) 20 mg PO QAM RF: 0 Marty-3 350 mg-235 mg- 90 mg-597 mg Capsule,Delayed Release(Dr/Ec) 1 cap PO BID RF: 0 No Action allopurinol 300 mg Tablet 300 mg PO QAM RF: 0 metformin 850 mg Tablet 850 mg PO QAM RF: 0 montelukast 10 mg Tablet 10 mg PO HS RF: 0 Victoza 2-Trevor 0.6 mg/0.1 mL (18 mg/3 mL) Pen Injector 1.2 mg SUBCUT DAILY@1600 RF: 0 levothyroxine 125 mcg Capsule 125 mcg PO QAM RF: 0 ProAir RespiClick 90 mcg/actuation Aerosol Powdr Breath Activated 2 puff INHALATION BID PRN (Reason: Shortness Of Breath Or Wheezing) RF: 0 Lantus U-100 Insulin 100 unit/mL Solution 35 unit SUBCUT BID RF: 0 acetaminophen [Tylenol Extra Strength] 500 mg Tablet 500 mg PO Q6H PRN (Reason: Pain) RF: 0 sennosides-docusate sodium [Senokot-S] 8.6-50 mg tablet 2 tab PO QAM RF: 0 fluticasone propion-salmeterol [Wixela Inhub] 100-50 mcg/dose blister with device 1 inh INHALATION BID RF: 0 Centrum Silver 0.4-300-250 mg-mcg-mcg Tablet 1 tab PO QAM RF: 0 prednisone 10 mg Tablet 10 mg PO UD PRN (Reason: RESQUE PACK) RF: 0 magnesium hydroxide [Milk of Magnesia] 400 mg/5 mL Suspension 30 ml PO UD PRN (Reason: Constipation) RF: 0 Flintstones with Iron 18 mg iron Tablet,Chewable 1 tab PO HS RF: 0 Discharge Orders: Discharge Order (Routine); Ordered 10/04/19 Ordered By: Gavino Cisneros/Other Patient Handouts: Diabetes Type 2 Managing Admission Data Admit Date/Time: 10/03/19 15:10 Attending Provider: Zachary Sanchez Admit Provider: Zachary Sanchez Primary Care Provider: Consuelo Arreguin Other Providers: Zachary Sanchez ; Brian Aceves Other Interventions: Discharge Summary Assessment (RN) Last Done: 10/04/19 22:14 DC Date/Time DO NOT enter until pt leaves facility: 10/04/19 22:16
[2019-10-05] MEDS ORDERED: FUROSEMIDE 40 MG TAB PO SCH (09:00)
--- NOTE | 2019-10-05 09:02 | Electrocardiogram Report ---
Test Reason : Blood Pressure : / mmHG Vent. Rate : 105 BPM Atrial Rate : 096 BPM P-R Int : 000 ms QRS Dur : 096 ms QT Int : 298 ms P-R-T Axes : 000 073 179 degrees QTc Int : 393 ms Atrial fibrillation with rapid ventricular response with premature ventricular or aberrantly conducte d complexes Probable Old Anteroseptal infarct Abnormal ECG When compared with ECG of 03-OCT-2019 12:27, No significant change was found Confirmed by Noman Jones ([id number]) on 10/05/2019 9:01:49 AM Referred By: REFERRED SELF Confirmed By:Noman Jones
== END 2019-10-04 22:16 | disposition short-term general hospital (02) | DRG 687 ==
LOC: ED 12:11 → 2S 15:10